=== PATIENT | female | born 1935 | race Two or more races ===

== ENCOUNTER 2016-02-29 17:10 | Inpatient (IN) | payer MEDICARE, MEDICAID ==
[~2016-02-29] VITALS: Ht 152.4 cm; Wt 31.8 kg
[~2016-02-29 17:10] MED LIST: ACET160S3 GT; ACID1TAB12 GT; ALBU2.5V38 IH; AMIN30LI4 GT; FOLI0.8T2 GT; HYDR-4076 GT; METO25TA6 PO; MUPI22OI7 NS; NITR0.4T6 SL; NUT.237L67 GT; POTA20LI4 GT; RIVA1PAT3 TD
[2016-02-29 17:48] LABS: CALCIUM, SERUM 9.4 mg/dL (8.5-10.1); CREATININE 2.3 mg/dL (0.6-1.3); POTASSIUM 4.3 mmol/L (3.5-5.1)
[2016-02-29] MEDS ORDERED: NUTR100037 GT (17:50)
[2016-02-29 17:54] LABS: ALBUMIN 2.8 g/dL (3.4-5.0); BILIRUBIN,DIRECT 0.1 mg/dL (0.0-0.2); BILIRUBIN,TOTAL 0.3 mg/dL (0.2-1.0); INDIRECT BILIRUBIN 0.2 mg/dL (0.0-1.1); TOTAL PROTEIN, SERUM 9.5 g/dL (6.4-8.2)
[2016-02-29 17:56] LABS: TROPONIN I 0.047 ng/mL (0.00-0.056)
[2016-02-29 17:59] LABS: LACTIC ACID 1.2 mmol/L (0.4-2.0)
[2016-02-29 18:01] LABS: BASOPHILS % (AUTO) 0.2 % (0.0-2.0); DIFF TOTAL % 100 %; EOSINOPHILS # (AUTO) 0.4 /CMM (0.0-0.7); EOSINOPHILS % (AUTO) 2.6 % (0.0-6.0); HEMATOCRIT 28 % (33-45); HEMOGLOBIN 8.3 g/dL (11.5-14.8); LYMPHOCYTES # (AUTO) 2.5 /CMM (0.8-4.8); LYMPHOCYTES % (AUTO) 14.5 % (20.0-44.0); MEAN CORPUSCULAR HEMOGLOBIN 27 PG (26.0-33.0); MEAN CORPUSCULAR HGB CONC 30 g/dl (31.0-36.0); MEAN CORPUSCULAR VOLUME 89 fL (82-100); MONOCYTES % (AUTO) 5.9 % (2.0-12.0); NEUTROPHILS # (AUTO) 13.1 /CMM (1.8-8.9); NEUTROPHILS % (AUTO) 76.8 % (43.0-81.0); PLATELET COUNT (AUTO) 508 /CMM (150-450); RED BLOOD CELL COUNT(AUTO) 3.13 MIL/uL (4.0-5.2)
[2016-02-29 18:13] LABS: PROTHROMBIN TIME 12.6 SECS (9.5-12.7)
[2016-02-29 18:40] LABS: PARTIAL THROMBOPLASTIN TIME > 170 SEC (23-34)
[2016-02-29] MEDS ORDERED: PIPERACILLIN /TAZOBACTAM 2.25 G in IV D5W 50 ML IV ONE (19:30)
[2016-02-29 20:26] VITALS: BP 132/69
[2016-02-29] MEDS ORDERED: NITROGLYCERIN 0.4 MG/TAB BOTTLE SL PRN (20:30)
[2016-02-29] MEDS ORDERED: HYDROCODONE/APAP 5/325MG 1 EACH TABLET PO PRN (20:30)
[2016-02-29] MEDS ORDERED: ACETAMINOPHEN 650 MG/20.3 ML UDC GT PRN (20:30)
[2016-02-29] MEDS ORDERED: MAG HYDROX/AL HYDROX/SIMETH 30 ML UDC PO PRN (20:30)
[2016-02-29] MEDS ORDERED: ALBUTEROL FS 2.5 MG/3 ML VIAL.NEB IH PRN (20:30)
[2016-02-29] MEDS ORDERED: MAGNESIUM HYDROXIDE 30 ML UDC PO PRN (20:30)
[2016-02-29] MEDS ORDERED: ACETAMINOPHEN 325 MG TABLET PO PRN (20:30)
[2016-02-29] MEDS ORDERED: ONDANSETRON HCL/PF 4 MG/2 ML VIAL IVP PRN (20:30)
[2016-02-29] MEDS ORDERED: ZOLPIDEM TARTRATE 5 MG TABLET GT PRN (20:30)
[2016-02-29] MEDS: PIPERACILLIN /TAZOBACTAM 2.25 G in IV D5W 50 ML IV SCH (21:00)
[2016-02-29] MEDS ORDERED: IV SET PRIMARY 1 EA INFUS.SET MC ONE ×2 (21:29→21:36)
[2016-02-29] MEDS ORDERED: RENAL NOVASOURCE 1,000 ML BOTTLE GT PRN (21:30)
[2016-02-29] MEDS ORDERED: SECONDARY IV SET 1 EA INFUS.SET MC ONE (21:30)
[2016-02-29] MEDS ORDERED: IV NS 0.9% 250 ML IV ONE (21:32)
[2016-02-29] MEDS: hydrALAZINE HCL 25 MG TABLET GT SCH (21:36)
[2016-02-29] MEDS ORDERED: PIPERACILLIN /TAZOBACTAM 2.25 G VIAL IV ONE (21:36)
[2016-02-29] MEDS ORDERED: IV NS 0.9% 50 ML IV ONE (21:37)
[2016-02-29] MEDS: METOPROLOL TARTRATE 25 MG TABLET PO SCH (21:37)
[2016-02-29] MEDS ORDERED: RENAL NOVASOURCE 1,000 ML BOTTLE ONE (21:40)
[2016-02-29] MEDS ORDERED: IV SET PRIMARY PUMP SET 1 EA INFUS.SET MC ONE (21:53)
[2016-03-01] VITALS (11 sets, daily range): BP systolic 92–134; BP diastolic 36–81
[2016-03-01] MEDS ORDERED: PIPERACILLIN /TAZOBACTAM 3.375 G in IV D5W 50 ML IV SCH ×2
[2016-03-01] MEDS: PIPERACILLIN /TAZOBACTAM 2.25 G in IV D5W 50 ML IV SCH ×3 (05:23→21:08)
[2016-03-01] MEDS: hydrALAZINE HCL 25 MG TABLET GT SCH ×3 (05:25→20:48)
[2016-03-01 07:05] LABS: BASOPHILS % (AUTO) 0.1 % (0.0-2.0); DIFF TOTAL % 100 %; EOSINOPHILS # (AUTO) 0.5 /CMM (0.0-0.7); EOSINOPHILS % (AUTO) 3.6 % (0.0-6.0); HEMATOCRIT 24 % (33-45); HEMOGLOBIN 7.4 g/dL (11.5-14.8); LYMPHOCYTES # (AUTO) 1.3 /CMM (0.8-4.8); LYMPHOCYTES % (AUTO) 10.3 % (20.0-44.0); MEAN CORPUSCULAR HEMOGLOBIN 27 PG (26.0-33.0); MEAN CORPUSCULAR HGB CONC 30 g/dl (31.0-36.0); MEAN CORPUSCULAR VOLUME 90 fL (82-100); MONOCYTES # (AUTO) 0.6 /CMM (0.1-1.30); MONOCYTES % (AUTO) 4.4 % (2.0-12.0); NEUTROPHILS # (AUTO) 10.6 /CMM (1.8-8.9); NEUTROPHILS % (AUTO) 81.6 % (43.0-81.0); PLATELET COUNT (AUTO) 489 /CMM (150-450); RED BLOOD CELL COUNT(AUTO) 2.69 MIL/uL (4.0-5.2)
[2016-03-01 07:46] LABS: CALCIUM, SERUM 8.9 mg/dL (8.5-10.1); CREATININE 3.3 mg/dL (0.6-1.3); PHOSPHORUS 3.3 mg/dL (2.5-4.9); POTASSIUM 4.7 mmol/L (3.5-5.1)
[2016-03-01] MEDS: PROSOURCE / PROSTAT (PYXIS) 30 ML UDC GT SCH ×2 (09:00→13:24)
[2016-03-01] MEDS: POTASSIUM CHLORIDE 20 MEQ POWDER PACKET GT SCH (09:00)
[2016-03-01] MEDS ORDERED: ACETAMINOPHEN 650 MG/20.3 ML UDC GT SCH (09:00)
[2016-03-01] MEDS: ACIDOPHILUS/BULGARICUS 1 EACH TAB.CHEW GT SCH ×2 (09:00→18:04)
[2016-03-01] MEDS: VIT B CMPLX 3/FA/VIT C/BIOTIN 1 TAB TABLET GT SCH (09:01)
[2016-03-01] MEDS: METOPROLOL TARTRATE 25 MG TABLET PO SCH ×2 (09:01→20:50)
[2016-03-01] MEDS: Z GUARD REMEDY 2 OZ OINT TP PRN (09:03)
[2016-03-01] MEDS: RIVASTIGMINE TARTRATE 4.6 MG PATCH.TD24 TD SCH (11:16)
[2016-03-01] MEDS ORDERED: ALBUMIN 25% 25 GM in PREMIX 1 EA IV ONE (18:30)
[2016-03-01] MEDS ORDERED: BLOOD IV SET 1 EA INFUS.SET MC ONE (20:03)
[2016-03-01] MEDS ORDERED: SECONDARY IV SET 1 EA INFUS.SET MC ONE (20:03)
[2016-03-01] MEDS ORDERED: IV NS 0.9% 250 ML IV ONE (20:04)
[2016-03-02] VITALS (15 sets, daily range): BP systolic 92–145; BP diastolic 36–68
[2016-03-02] MEDS: RENAL NOVASOURCE 1,000 ML BOTTLE GT PRN (03:47)
[2016-03-02] MEDS: hydrALAZINE HCL 25 MG TABLET GT SCH ×3 (04:42→21:20)
[2016-03-02] MEDS: PIPERACILLIN /TAZOBACTAM 2.25 G in IV D5W 50 ML IV SCH ×3 (04:42→21:30)
[2016-03-02] MEDS: ACIDOPHILUS/BULGARICUS 1 EACH TAB.CHEW GT SCH ×2 (09:21→17:02)
[2016-03-02] MEDS: VIT B CMPLX 3/FA/VIT C/BIOTIN 1 TAB TABLET GT SCH (09:21)
[2016-03-02] MEDS: RIVASTIGMINE TARTRATE 4.6 MG PATCH.TD24 TD SCH (09:21)
[2016-03-02] MEDS: POTASSIUM CHLORIDE 20 MEQ POWDER PACKET GT SCH (09:21)
[2016-03-02] MEDS: METOPROLOL TARTRATE 25 MG TABLET PO SCH ×2 (09:22→21:21)
[2016-03-02 13:47] LABS: HEMOGLOBIN 11.4 g/dL (11.5-14.8)
[2016-03-02] MEDS: Z GUARD REMEDY 2 OZ OINT TP PRN (17:02)
[2016-03-03] VITALS: BP 119/48
[2016-03-03 04:00] VITALS: BP 131/52
[2016-03-03] MEDS: RENAL NOVASOURCE 1,000 ML BOTTLE GT PRN (04:37)
[2016-03-03] MEDS: hydrALAZINE HCL 25 MG TABLET GT SCH ×3 (04:38→20:46)
[2016-03-03] MEDS: PIPERACILLIN /TAZOBACTAM 2.25 G in IV D5W 50 ML IV SCH ×3 (04:48→20:44)
[2016-03-03 06:21] LABS: BASOPHILS % (AUTO) 0.2 % (0.0-2.0); DIFF TOTAL % 100 %; EOSINOPHILS # (AUTO) 1.6 /CMM (0.0-0.7); EOSINOPHILS % (AUTO) 14.4 % (0.0-6.0); HEMATOCRIT 38 % (33-45); HEMOGLOBIN 11.9 g/dL (11.5-14.8); LYMPHOCYTES % (AUTO) 8.7 % (20.0-44.0); MEAN CORPUSCULAR HEMOGLOBIN 27 PG (26.0-33.0); MEAN CORPUSCULAR HGB CONC 32 g/dl (31.0-36.0); MEAN CORPUSCULAR VOLUME 84 fL (82-100); MONOCYTES % (AUTO) 9.2 % (2.0-12.0); NEUTROPHILS # (AUTO) 7.6 /CMM (1.8-8.9); NEUTROPHILS % (AUTO) 67.5 % (43.0-81.0); PLATELET COUNT (AUTO) 317 /CMM (150-450); RED BLOOD CELL COUNT(AUTO) 4.47 MIL/uL (4.0-5.2); WHITE BLOOD COUNT (AUTO) 11.2 K/uL (4.3-11.0)
[2016-03-03 07:14] LABS: CALCIUM, SERUM 9.2 mg/dL (8.5-10.1); CREATININE 3.9 mg/dL (0.6-1.3); PHOSPHORUS 2.8 mg/dL (2.5-4.9); POTASSIUM 3.8 mmol/L (3.5-5.1)
[2016-03-03 08:00] VITALS: BP 124/58
[2016-03-03] MEDS: ACIDOPHILUS/BULGARICUS 1 EACH TAB.CHEW GT SCH ×2 (08:32→16:20)
[2016-03-03] MEDS: RIVASTIGMINE TARTRATE 4.6 MG PATCH.TD24 TD SCH (08:32)
[2016-03-03] MEDS: POTASSIUM CHLORIDE 20 MEQ POWDER PACKET GT SCH (08:32)
[2016-03-03] MEDS: VIT B CMPLX 3/FA/VIT C/BIOTIN 1 TAB TABLET GT SCH (08:32)
[2016-03-03] MEDS: METOPROLOL TARTRATE 25 MG TABLET PO SCH ×2 (08:38→20:45)
[2016-03-03] MEDS ORDERED: IV NS 0.9% 250 ML IV ONE (08:59)
[2016-03-03] MEDS ORDERED: SECONDARY IV SET 1 EA INFUS.SET MC ONE (08:59)
[2016-03-03] MEDS ORDERED: IV SET PRIMARY PUMP SET 1 EA INFUS.SET MC ONE (08:59)
[2016-03-03 12:00] VITALS: BP 117/61
[2016-03-03] MEDS: Z GUARD REMEDY 2 OZ OINT TP PRN (14:21)
[2016-03-03 16:00] VITALS: BP 129/62
[2016-03-03 20:00] VITALS: BP 114/57
[2016-03-04 04:00] VITALS: BP 127/65
[2016-03-04] MEDS: PIPERACILLIN /TAZOBACTAM 2.25 G in IV D5W 50 ML IV SCH (04:31)
[2016-03-04] MEDS: RENAL NOVASOURCE 1,000 ML BOTTLE GT PRN (04:31)
[2016-03-04] MEDS: hydrALAZINE HCL 25 MG TABLET GT SCH (04:33)
[2016-03-04 08:00] VITALS: BP 110/53
[2016-03-04] MEDS: ACIDOPHILUS/BULGARICUS 1 EACH TAB.CHEW GT SCH (09:36)
[2016-03-04] MEDS: VIT B CMPLX 3/FA/VIT C/BIOTIN 1 TAB TABLET GT SCH (09:36)
[2016-03-04] MEDS: POTASSIUM CHLORIDE 20 MEQ POWDER PACKET GT SCH (09:36)
[2016-03-04 09:37] VITALS: BP 120/57
[2016-03-04] MEDS: METOPROLOL TARTRATE 25 MG TABLET PO SCH (09:37)
[2016-03-04] MEDS: RIVASTIGMINE TARTRATE 4.6 MG PATCH.TD24 TD SCH (10:32)
[2016-03-04 10:47] LABS: KETONES,URINE NEGATIVE (NEGATIVE)
[2016-03-04 10:48] LABS: ADD UA MICROSCOPIC YES; LEUKOCYTE ESTERASE ,URINE 2+ (NEGATIVE); UA OPERATOR RI
[2016-03-04 10:49] LABS: ADD URINE CULTURE YES; CALCIUM CARBONATE CRYSTALS,UR None Seen /HPF (None Seen); CALCIUM PHOSPHATE CRYSTALS,UR None Seen /HPF (None Seen); COARSE GRANULAR CASTS,URINE None Seen /LPF (None Seen); CYSTINE CRYSTALS,URINE None Seen /HPF (None Seen); FATTY CASTS,URINE None Seen /LPF (None Seen); FINE GRANULAR CASTS,URINE None Seen /LPF (None Seen); HYALINE CASTS, URINE None Seen /LPF (None Seen); RED BLOOD CELL CASTS,URINE None Seen /LPF (None Seen); TYROSINE CRYSTAL,URINE None seen /HPF (None Seen); URIC ACID CRYSTALS,URINE None Seen /HPF (None Seen); WAXY CASTS,URINE None Seen /LPF (None Seen); WBC,URINE TOO NUMEROUS TO COUN /HPF (0-3)
[2016-03-04 10:50] LABS: MUCUS,URINE Moderate /LPF (None Seen); OTHER CASTS, URINE None Seen /LPF (None Seen); SPERM,URINE None Seen /HPF (None Seen)
== END 2016-03-04 13:15 | DRG 689 ==
LOC: ER 17:11 → TELE1 19:18
PROVIDERS: ADMIT Family Medicine; ATTEND Family Medicine
PROC: 30233N1 Transfusion of Nonautologous Red Blood Cells into Peripheral Vein, Percutaneous Approach (ICD-10-PCS; principal; 2016-03-01)
PROC: 5A1D60Z (ICD-10-PCS; 2016-03-01)
DX: N39.0 Urinary tract infection, site not specified (principal); N18.6 End stage renal disease; E43 Unspecified severe protein-calorie malnutrition; G93.40 Encephalopathy, unspecified; D68.59 Other primary thrombophilia; J98.11 Atelectasis; Z68.1 Body mass index [BMI] 19.9 or less, adult; R64 Cachexia; I12.0 Hypertensive chronic kidney disease with stage 5 chronic kidney disease or end stage renal disease; N12 Tubulo-interstitial nephritis, not specified as acute or chronic; N13.2 Hydronephrosis with renal and ureteral calculous obstruction; Z99.2 Dependence on renal dialysis; K21.9 Gastro-esophageal reflux disease without esophagitis; G30.9 Alzheimer's disease, unspecified; F02.80 Dementia in other diseases classified elsewhere, unspecified severity, without behavioral disturbance, psychotic disturbance, mood disturbance, and anxiety; E78.5 Hyperlipidemia, unspecified; Z87.442 Personal history of urinary calculi; R13.10 Dysphagia, unspecified; Z93.1 Gastrostomy status; I25.10 Atherosclerotic heart disease of native coronary artery without angina pectoris; I48.91 Unspecified atrial fibrillation; L30.9 Dermatitis, unspecified; L98.9 Disorder of the skin and subcutaneous tissue, unspecified; D64.9 Anemia, unspecified
CPT/HCPCS: 36415; 71010-TC; 76770-TC; 80048-TC; 80061-TC; 80076-TC; 81000-TC; 83605-TC; 83735-TC; 84100-TC; 84484-TC; 85025-TC; 85027-TC; 85730-TC; 86850-TC; 86921-TC; 87040-TC; 87081-TC; 87086-TC; 90935-TC; A4216; A4606; A6253; A6402; J2543; J7050; J7060; P9016-BL; P9047; Z7610

== ENCOUNTER 2016-07-17 12:01 | Inpatient (IN) | payer MEDICARE, MEDICAID ==
[~2016-07-17] VITALS: Ht 152.4 cm; Wt 38.1 kg
[~2016-07-17 12:01] MED LIST changes: -ACET160S3 GT; +ACET650S26 GT; -MUPI22OI7 NS; -NUT.237L67 GT; +NUTR100037 GT
--- NOTE | 2016-07-17 12:02 | NUR ---
BIB EMT FROM DIALYSIS CENTER DUE TO A MALFUNCTIONING DIALYSIS CATHETER. PATIENT IS AWAKE, HOWEVER PATIENT IS CONFUSED. PATIENT HD CATH NO RCW WAS REPORTED TO BE NON FUNCTIONING. VIKAS NNOTED WITH AV FISTULA WITH POSTIVE BRUIT AND THRILL. GT IS ALSO NOTED. VSS. AFEBRILE
[2016-07-17 12:56] LABS: BASOPHILS # (AUTO) 0.1 /CMM (0.0-0.2); BASOPHILS % (AUTO) 1.1 % (0.0-2.0); EOSINOPHILS # (AUTO) 0.4 /CMM (0.0-0.7); EOSINOPHILS % (AUTO) 3.4 % (0.0-6.0); HEMATOCRIT 40 % (33-45); HEMOGLOBIN 12.2 g/dL (11.5-14.8); LYMPHOCYTES # (AUTO) 2.3 /CMM (0.8-4.8); LYMPHOCYTES % (AUTO) 18.1 % (20.0-44.0); MEAN CORPUSCULAR HEMOGLOBIN 27 PG (26.0-33.0); MEAN CORPUSCULAR HGB CONC 31 g/dl (31.0-36.0); MEAN CORPUSCULAR VOLUME 88 fL (82-100); MONOCYTES # (AUTO) 1.2 /CMM (0.1-1.30); MONOCYTES % (AUTO) 9.4 % (2.0-12.0); NEUTROPHILS # (AUTO) 8.5 /CMM (1.8-8.9); PLATELET COUNT (AUTO) 262 /CMM (150-450); RDW COEFFICIENT OF VARIATION 19.8 (11.5-15.0); RED BLOOD CELL COUNT(AUTO) 4.56 MIL/uL (4.0-5.2); WHITE BLOOD COUNT (AUTO) 12.5 K/uL (4.3-11.0)
[2016-07-17 13:09] LABS: CALCIUM, SERUM 9.4 mg/dL (8.5-10.1); CREATININE 3.2 mg/dL (0.6-1.3); POTASSIUM 4.7 mmol/L (3.5-5.1)
[2016-07-17 13:12] LABS: INR 1.07 (0.87-1.13); PROTHROMBIN TIME 11.1 SECS (9.5-12.7)
--- NOTE | 2016-07-17 13:15 | NUR ---
PAGED DR QUINONES
[2016-07-17 13:20] VITALS: BP 143/58
--- NOTE | 2016-07-17 13:45 | NUR ---
REPAGED DR QUINONES
--- NOTE | 2016-07-17 13:47 | NUR ---
MD GAMING ON PHONE WITH MD QUINONES
[2016-07-17] MEDS ORDERED: MAGN400O6 GT (14:15)
[2016-07-17] MEDS ORDERED: CLON0.1T GT (14:15)
[2016-07-17] MEDS ORDERED: MEMA5TAB GT (14:15)
[2016-07-17] MEDS ORDERED: VALS80TA26 GT (14:15)
[2016-07-17] MEDS ORDERED: L.AC460C GT (14:15)
[2016-07-17] MEDS ORDERED: MAGN355O5 GT (14:15)
[2016-07-17] MEDS ORDERED: AMIN887L GT (14:15)
[2016-07-17] MEDS ORDERED: FERR-58 GT (14:15)
[2016-07-17] MEDS ORDERED: OLAN5TAB3 GT (14:15)
[2016-07-17] MEDS ORDERED: HYDR-3326 GT (14:15)
[2016-07-17] MEDS ORDERED: FOLI1TAB16 GT (14:15)
[2016-07-17] MEDS ORDERED: ALTEPLASE CATHFLO 2 MG/VIAL XX ONE (14:30)
--- NOTE | 2016-07-17 14:46 | NUR ---
HD NURSE NAMITA TO ADMINISTED ACTIVASE PER MD CARLOS
--- NOTE | 2016-07-17 14:50 | NUR ---
HD NURSE AT BEDSIDE
--- NOTE | 2016-07-17 14:52 | NUR ---
HD CATH ACTIVASE GIVEN BY NAMITA RN- HD NURSE
--- NOTE | 2016-07-17 15:18 | NUR ---
PT TRANSPORTED TO [address] [place] [address]
--- NOTE | 2016-07-17 15:20 | NUR ---
RN OPENING NOTES RECEIVED PATIENT IN STRETCHER, AWAKE, HEAD OF BED ELEVATED, NO SOB OR DISTRESS NOTED. ALERT AND ORIENTED X1, PATIENT IS CONFUSED. IV INTACT AND PATENT. KEPT PATIENT CLEAN AND COMFORTABLE IN BED, CALL LIGHT WITHIN PATIENT REACH, WILL CONTINUE TO MONITOR ACCORDINGLY
[2016-07-17 16:00] VITALS: BP 143/58
[2016-07-17] MEDS ORDERED: SECONDARY IV SET 1 EA INFUS.SET MC ONE (16:03)
--- NOTE | 2016-07-17 19:25 | NUR ---
MS RN NOTE RECEIVED PT IN BED. AWAKE, A/O X1 , CONFUSED. VERBALLY RESPONSIVE ( TAGALOG ). NO S/S OF DISTRESS, NO SOB AT THIS TIME. IV SITE ON RFA INTACT AND PATENT. NO S/S OF INFILTRATION NOTED. DENIES ANY PAIN OR DISCOMFORT AT THIS TIME. ALL NEEDS ATTENDED. SAFETY PRECAUTIONS OBSERVED. CALL LIGHT WITHIN REACH. WILL CONTINUE TO MONITOR.
--- NOTE | 2016-07-17 19:35 | NUR ---
RN CLOSING NOTES ALL NEEDS PROVIDED, ATTENDED AND ANTICIPATED. KEPT PATIENT CLEAN AND COMFORTABLE IN BED, CALL LIGHT WITHIN PATIENT REACH, WILL CONTINUE TO MONITOR ACCORDINGLY. ENDORSED TO NEXT SHIFT RN TO CONTINUE CARE
[2016-07-17 20:00] VITALS: BP 137/81
--- NOTE | 2016-07-17 20:15 | NUR ---
PLACED A CALL TO [facility] AND SPOKE WITH MARTHA, CHARGE NURSE RN FOR 3-11 SHIFT , VERIFIED PT'S ALLERGY TO CODEINE, PER JUANI THOMAS , PT HAS BEEN ON NORCO FOR A LONG TIME, THEY'VE BEEN GIVING IT BUT NO ALLERGIC REACTIONS SO FAR , DAISY FROM PHARMACY INFORMED.
[2016-07-17] MEDS ORDERED: ACETAMINOPHEN 650 MG/20.3 ML UDC GT PRN (20:30)
[2016-07-17] MEDS ORDERED: DEXTROSE 50%-WATER 50 ML DISP.SYRIN IV PRN (20:30)
[2016-07-17] MEDS ORDERED: HYDROCODONE/APAP 5/325MG 1 EACH TABLET GT PRN (20:30)
[2016-07-17] MEDS ORDERED: NITROGLYCERIN 0.4 MG/TAB BOTTLE SL PRN (20:30)
[2016-07-17] MEDS ORDERED: MAGNESIUM HYDROXIDE 30 ML UDC GT PRN (20:30)
[2016-07-17] MEDS ORDERED: ALBUTEROL FS 2.5 MG/3 ML VIAL.NEB IH PRN (20:30)
[2016-07-17] MEDS ORDERED: CLONIDINE HCL 0.1 MG TABLET GT PRN (20:30)
--- NOTE | 2016-07-17 21:07 | NUR ---
RECEIVED A CALL FROM DR. SALGUERO, PER HE IS THE ADMITTING DR FOR THE PT , ADMISSION ORDERS VERIFIED WITH DR. SALGUERO.
[2016-07-17 22:00] VITALS: BP 137/81
[2016-07-17] MEDS: MAG HYDROX/AL HYDROX/SIMETH 30 ML UDC GT SCH (22:01)
[2016-07-17] MEDS: hydrALAZINE HCL 25 MG TABLET GT SCH (22:01)
[2016-07-17] MEDS: METOPROLOL TARTRATE 25 MG TABLET GT SCH (22:02)
[2016-07-17] MEDS: RENAL NOVASOURCE 1,000 ML BOTTLE GT PRN (23:14)
[2016-07-17] MEDS: BLOOD SUGAR DIAGNOSTIC 1 EACH STRIP IN SCH (23:21)
[2016-07-18] MEDS: hydrALAZINE HCL 25 MG TABLET GT SCH ×3 (04:30→21:09)
[2016-07-18] MEDS: MAG HYDROX/AL HYDROX/SIMETH 30 ML UDC GT SCH ×3 (05:04→21:08)
[2016-07-18] MEDS: BLOOD SUGAR DIAGNOSTIC 1 EACH STRIP IN SCH ×3 (05:40→17:34)
--- NOTE | 2016-07-18 06:27 | NUR ---
MS RN NOTE PT IN BED. ASLEEP AT THIS TIME. AROUSES EASILY. A/O X1 , CONFUSED. VERBALLY RESPONSIVE ( TAGALOG ). NO S/S OF DISTRESS, NO SOB AT THIS TIME. IV SITE ON RFA INTACT AND PATENT. NO S/S OF INFILTRATION NOTED. DENIES ANY PAIN OR DISCOMFORT AT THIS TIME.ON GTF OF NOVASOURCE RENAL @ 40 CC /HR. NO RESIDUAL NOTED. HOB ELEVATED FOR ASPIRATION PRECAUTION. RCW HD CATH INTACT WITH DRESSING. ALL NEEDS ATTENDED. SAFETY PRECAUTIONS OBSERVED. CALL LIGHT WITHIN REACH. WILL ENDORSE TO NEXT SHIFT FOR FIDEL.
[2016-07-18 06:35] LABS: BASOPHILS % (AUTO) 0.3 % (0.0-2.0); EOSINOPHILS # (AUTO) 0.3 /CMM (0.0-0.7); HEMATOCRIT 36 % (33-45); HEMOGLOBIN 10.8 g/dL (11.5-14.8); LYMPHOCYTES % (AUTO) 18.2 % (20.0-44.0); MEAN CORPUSCULAR HEMOGLOBIN 26 PG (26.0-33.0); MEAN CORPUSCULAR HGB CONC 30 g/dl (31.0-36.0); MEAN CORPUSCULAR VOLUME 87 fL (82-100); MONOCYTES # (AUTO) 1.3 /CMM (0.1-1.30); MONOCYTES % (AUTO) 11.7 % (2.0-12.0); NEUTROPHILS # (AUTO) 7.3 /CMM (1.8-8.9); NEUTROPHILS % (AUTO) 66.8 % (43.0-81.0); PLATELET COUNT (AUTO) 323 /CMM (150-450); RED BLOOD CELL COUNT(AUTO) 4.14 MIL/uL (4.0-5.2); WHITE BLOOD COUNT (AUTO) 10.9 K/uL (4.3-11.0)
[2016-07-18 07:04] LABS: ALBUMIN 2.3 g/dL (3.4-5.0); BILIRUBIN,TOTAL 0.3 mg/dL (0.2-1.0); CREATININE 3.9 mg/dL (0.6-1.3); MAGNESIUM 3.2 mg/dL (1.8-2.4); POTASSIUM 4.7 mmol/L (3.5-5.1); TOTAL PROTEIN, SERUM 8.1 g/dL (6.4-8.2)
--- NOTE | 2016-07-18 07:45 | NUR ---
RN MS NOTES PATIENT IN BED AWAKE A/O X 1, PATIENT IS VERBALLY RESPONSIVE AND CONFUSED. NO ACUTE DISTRESS NOTED, NO SOB, NO S/S OF PAIN NOTED. RECEIVED A CALL FROM LAB REGARDING BUN LEVEL OF 86, WILL INFORM MD. ALL NEEDS MET, KEPT CLEAN AND DRY. CALL LIGHT WITHIN REACH.
[2016-07-18 08:00] VITALS: BP 116/60
[2016-07-18] MEDS: VALSARTAN 80 MG TABLET GT SCH ×2 (09:00→17:25)
[2016-07-18] MEDS: METOPROLOL TARTRATE 25 MG TABLET GT SCH ×2 (09:00→21:09)
[2016-07-18] MEDS: OLANZAPINE 5 MG TABLET GT SCH (09:42)
[2016-07-18] MEDS: FERROUS SULFATE UDC 300 MG/5 ML UDC GT SCH ×3 (09:42→17:25)
[2016-07-18] MEDS: PROSOURCE / PROSTAT (PYXIS) 30 ML UDC GT SCH ×3 (09:42→17:25)
[2016-07-18] MEDS: LACTOBACILLUS RHAMNOSUS GG 1 EACH CAP.SPRINK GT SCH ×2 (09:42→17:25)
[2016-07-18] MEDS: FOLIC ACID 1 MG TABLET GT SCH (09:43)
[2016-07-18] MEDS: VIT B CMPLX 3/FA/VIT C/BIOTIN 1 TAB TABLET GT SCH (09:43)
[2016-07-18] MEDS: MEMANTINE HCL 5 MG TABLET GT SCH (09:43)
--- NOTE | 2016-07-18 10:09 | NUR ---
RN MS NOTES HELD DIOIVY, AND LOPRESSOR DUE TO PATIENT BEING SCHEDULED FOR DIALYSIS TODAY. BP IS 116/60 HR 81. DIALYSIS NURSE MADE AWARE.
--- NOTE | 2016-07-18 10:34 | NUR ---
RN MS NOTES PATIENTS' DIALYSIS ACCESS STILL NOT WORKING. DIALYSIS NURSE ATTEMPTED TO DIALYZE PATIENT, WAS NOT ABLE. DR GALVAN AWARE WILL TRY TO SCHEDULE FOR VASCULAR SURGEON TO CHANGE THE SITE TOMORROW. ALSO MADE AWARE OF CRITICAL BUN LEVEL. NO NEW ORDERS.
--- NOTE | 2016-07-18 11:19 | NUR ---
RN MS NOTES CALLED DAUGHTER LISHA AND NEPHEW MACKENZIE FOR CONSENT, NO ONE ANSWERED LEFT A MESSAGE FOR BOTH. WILL ATTEMPT LATER
--- NOTE | 2016-07-18 13:40 | NUR ---
RN MS NOTES RECEIVED CALL BACK FROM PT'S NEPHEW MACKENZIE WONGGARA, VERBALIZED UNDERSTANDING WITH THE PLANNED PROCEDURE, CONSENT GIVEN FOR DIALYSIS CATHETER REPLACEMENT, ANESTHESIA AND BLOOD TRANSFUSION, CO-SIGNED WITH ANOTHER RN.
--- NOTE | 2016-07-18 15:30 | NUR ---
RN MS NOTES NO APPARENT DISTRESS NOTED, NO SOB, NO S/S OF PAIN NOTED. SCD STOCKINGS ORDERED AND PLACED. PATIENT SCHEDULED FOR DIALYSIS CATH REPLACEMENT TOMORROW, TELEPHONE CONSENT GIVEN BY HER NEPHEW MACKENZIE. TUBE FEEDING TO BE STOPPED AFTER MIDNIGHT. ALL NEEDS MET, KEPT CELAN AND DRY.
[2016-07-18 16:00] VITALS: BP 120/68
--- NOTE | 2016-07-18 18:47 | NUR ---
RN MS CLOSING NOTES PATIENT A/OX 1, IN NO APPARENT DISTRESS, NO SOB, NO S/S OF PAIN NOTED. PER BUSINESS SALES CONSULTANT, SHE RECOMMENDS THE TUBE FEEDING TO CHANGED TO 25ML/HR, WILL ENDORSE TO INCOMING NURSE TO F/U WITH MD. PATIENT IS SCHEDULED FOR HD CATH REPLACEMENT TOMORROW, TELEPHONE CONSENT OBTAINED. PER MD SHE WILL BE NPO AFTER MIDNIGHT AND TUBE FEEDING WILL BE STOPPED. ALL NEEDS MET, KEPT CLEAN AND DRY, CALL LIGHT WITHIN REACH.
--- NOTE | 2016-07-18 19:20 | NUR ---
MS RN NOTES RECEIVED PT IN BED, AWAKE, A/O X 1. VERBALLY RESPONSIVE. NO DISTRESS , NO SOB NOTED. GTF OF NOVASOURCE RENAL ONGOING , DIANA WELL. HOB ELEVATED FOR ASPIRATION PRECAUTION. IV SITE ON RFA G#22 INTACT AND PATENT, NO S/S OF INFILTRATION NOTED. RCW PERMACATH INTACT WITH DRESSING. PT FOR HD CATHETER REPLACEMENT TOMORROW BY DR. ALANIS. DENIES ANY PAIN OR DISCOMFORT AT THIS TIME. SAFETY PRECAUTIONS OBSERVED. ALL NEEDS ATTENDED. CALL LIGHT WITHIN REACH. WILL CONTINUE TO MONITOR.
[2016-07-18 20:12] VITALS: BP 156/78
[2016-07-18 22:00] VITALS: BP 156/78
--- NOTE | 2016-07-19 00:30 | NUR ---
MSRN PER HD REPORT NO OUTPUT TAKEN. DUE MEDS ADMINISTERED, V/S REMAINS STABLE. PLEASANTLY CONFUSED, GT FEEDINGS TOLERATED. BS WAS 95. HS CARE STARTED.
--- NOTE | 2016-07-19 01:01 | NUR ---
PT'S BS : 95 AT THIS TIME, PT WAS ON NOVASOURCE RENAL GTF DIANA WELL. WILL CONT TO MONITOR.
[2016-07-19] MEDS: BLOOD SUGAR DIAGNOSTIC 1 EACH STRIP IN SCH ×5 (01:02→23:30)
[2016-07-19] MEDS: hydrALAZINE HCL 25 MG TABLET GT SCH ×2 (05:00→12:36)
[2016-07-19] MEDS: MAG HYDROX/AL HYDROX/SIMETH 30 ML UDC GT SCH ×2 (05:00→12:37)
--- NOTE | 2016-07-19 07:25 | NUR ---
RN OPEN NOTES RECEIVED REPORT FROM WINEMAKER NURSE. PATIENT IS IN BED, AWAKE. NO SIGN AND SYMPTOMS OF DISTRESS. DENIED PAIN. IV SITE IS INTACT AND PATENT. PATIENT IS NPO SINCE MIDNIGHT. WILL CONTINUE TO ASSESS AND MONITOR PATIENT THROUGH OUT MY SHIFT.
[2016-07-19 08:00] VITALS: BP 138/63
[2016-07-19] MEDS: FOLIC ACID 1 MG TABLET GT SCH (09:00)
[2016-07-19] MEDS: METOPROLOL TARTRATE 25 MG TABLET GT SCH (09:00)
[2016-07-19] MEDS: LACTOBACILLUS RHAMNOSUS GG 1 EACH CAP.SPRINK GT SCH ×2 (09:00→16:11)
[2016-07-19] MEDS: MEMANTINE HCL 5 MG TABLET GT SCH (09:00)
[2016-07-19] MEDS: FERROUS SULFATE UDC 300 MG/5 ML UDC GT SCH ×3 (09:00→16:11)
[2016-07-19] MEDS: OLANZAPINE 5 MG TABLET GT SCH (09:00)
[2016-07-19] MEDS: VALSARTAN 80 MG TABLET GT SCH ×2 (09:00→16:11)
[2016-07-19] MEDS: VIT B CMPLX 3/FA/VIT C/BIOTIN 1 TAB TABLET GT SCH (09:00)
[2016-07-19] MEDS: PROSOURCE / PROSTAT (PYXIS) 30 ML UDC GT SCH ×3 (09:00→16:11)
--- NOTE | 2016-07-19 09:56 | NUR ---
WOUND CARE CONSULT: PT AGITATED AND REFUSING SKIN ASSESSMENT. PT FOLLOWED BY SURGICAL TEAM. RECOMMENDATIONS MADE FOR SKIN PROTECTION. DISCUSSED WITH NURSING STAFF. SOM SCORE IS 15. WILL SEE PRN. IN AGREEMENT WITH PLAN OF CARE.
[2016-07-19] MEDS ORDERED: Z GUARD REMEDY 2 OZ OINT TP PRN (10:00)
--- NOTE | 2016-07-19 12:30 | NUR ---
OR CALLED. PATIENT WILL BE PICKED UP AT [phone] FOR HD CATH PLACEMENT
[2016-07-19] MEDS: Z GUARD REMEDY 2 OZ OINT TP SCH (12:42)
[2016-07-19] MEDS ORDERED: LIDOCAINE HCL/PF 1% 30 ML SDV ONE (15:04)
[2016-07-19] MEDS ORDERED: HEPARIN SODIUM, PORCINE 1,000 UNIT/ML VIAL ONE (15:04)
[2016-07-19 16:01] VITALS: BP 146/87
--- NOTE | 2016-07-19 16:39 | NUR ---
PATIENT LEFT THE FLOOR FOR HD DIALYSIS REPLACEMENT
[2016-07-19 18:05] VITALS: BP 133/89
[2016-07-19] MEDS: RENAL NOVASOURCE 1,000 ML BOTTLE GT PRN (18:11)
--- NOTE | 2016-07-19 18:20 | NUR ---
PATIENT CAME BACK TO THE FLOOR AT 1805. VITAL SIGNS AREl STABLE: BLOOD PRESSURE 133/89, HEART RATE 86 AND TEMP 97.4. RESUME FEEDING. XRAY AT BEDSIDE TO CONFIRM PLACEMENT.
--- NOTE | 2016-07-19 18:30 | NUR ---
CHEST XRAY DONE. PENDING RESULT
--- NOTE | 2016-07-19 18:38 | NUR ---
DIALYSIS NURSE CALLED. I INFORMED HER THAT PATIENT CAME BACK FROM OR AND CHEST X-RAY FOR PLACEMENT IS PENDING
--- NOTE | 2016-07-19 18:40 | NUR ---
RN CLOSING NOTES PATIENT IS ALERT AND ORIENTED TO NAME. PATIENT IS VERY CONFUSED. NO SIGNS AND SYMPTOMS OF DISTRESS. IV SITE IS INTACT AND PATENT, HL. PATIENT FEEDING RESUMED AT 1815. PATIENT WILL HAVE DIALYSIS TONIGHT AFTER CHEST X-RAY RESULT CONFIRM PLACEMENT. WILL ENDORSE TO PRODUCTION STATISTICAL CLERK NURSE.
--- NOTE | 2016-07-19 19:40 | NUR ---
MSRN ASLEEP, APPEARS COMFORTABLE. GT FEEDINGS TOLERATED, HOB TO 45 DEGREES. AWAITING FOR HD TONITE.
[2016-07-19 20:00] VITALS: BP 137/76
--- NOTE | 2016-07-19 21:00 | NUR ---
MSRN STARTED HD. ALL DUE MEDS HELD FOR NOW.
[2016-07-19] MEDS ORDERED: SECONDARY IV SET 1 EA INFUS.SET MC ONE (21:24)
[2016-07-20] MEDS: METOPROLOL TARTRATE 25 MG TABLET GT SCH ×3 (00:28→21:24)
[2016-07-20] MEDS: hydrALAZINE HCL 25 MG TABLET GT SCH ×4 (00:29→21:46)
--- NOTE | 2016-07-20 00:30 | NUR ---
MSRN NO OUTPUT TAKEN FROM HD. ALL DUE MEDS ADMINISTED. BS WAS 95. GT FEEDINGS CONTINUED.
[2016-07-20] MEDS: MAG HYDROX/AL HYDROX/SIMETH 30 ML UDC GT SCH ×4 (00:33→21:24)
[2016-07-20] MEDS: ANCEF 1 GM/50 ML D5W IV SCH ×4 (00:34→08:01)
[2016-07-20] MEDS ORDERED: IV SET PRIMARY PUMP SET 1 EA INFUS.SET MC ONE (00:37)
--- NOTE | 2016-07-20 03:43 | NUR ---
TELERN SLEEPING CLOSELY WATCHED.
--- NOTE | 2016-07-20 07:00 | NUR ---
TELERN BLOOD SUGAR WAS 159 COVERED WITH 2 UNITS REG INS SQ PER SLIDING SCALE. PATIENT TRYING TO PULL HD CATH, HAVE SLAG MIXER STAY WITH PATIENT FOR AWHILE.
[2016-07-20] MEDS: BLOOD SUGAR DIAGNOSTIC 1 EACH STRIP IN SCH ×3 (07:04→17:02)
[2016-07-20] MEDS: INSULIN REGULAR, HUMAN 100 UNIT/ML 3 ML VIAL SQ PRN ×2 (07:09→17:01)
--- NOTE | 2016-07-20 07:15 | NUR ---
MSRN 5 AM MEDS NOT ADMINISTERED, MEDS GIVEN LATE POST HD
--- NOTE | 2016-07-20 07:29 | NUR ---
RN OPEN NOTES RECEIVED REPORT FROM HIDE INSPECTOR NURSE. PATIENT IS IN BED, AWAKE AND ORIENTED TO NAME ONLY. NO SIGNS AND SYMPTOMS OF DISTRESS. IV SITE IS INTACT AND PATENT. GT TUBE FEEDING IS AT 40ML/HR. PER HIDE INSPECTOR, PATIENT WAS TRYING TO PULL OUT HER HD CATH. WILL CONTINUE TO MONITOR AND ASSESS PATIENT THROUGHOUT MY SHIFT.
[2016-07-20 08:00] VITALS: BP 134/66
[2016-07-20] MEDS: FERROUS SULFATE UDC 300 MG/5 ML UDC GT SCH ×3 (08:00→16:59)
[2016-07-20] MEDS: VIT B CMPLX 3/FA/VIT C/BIOTIN 1 TAB TABLET GT SCH (08:00)
[2016-07-20] MEDS: LACTOBACILLUS RHAMNOSUS GG 1 EACH CAP.SPRINK GT SCH ×2 (08:00→16:59)
[2016-07-20] MEDS: PROSOURCE / PROSTAT (PYXIS) 30 ML UDC GT SCH ×3 (08:00→16:59)
[2016-07-20] MEDS: FOLIC ACID 1 MG TABLET GT SCH (08:01)
[2016-07-20] MEDS: OLANZAPINE 5 MG TABLET GT SCH (08:01)
[2016-07-20] MEDS: MEMANTINE HCL 5 MG TABLET GT SCH (08:01)
[2016-07-20] MEDS: VALSARTAN 80 MG TABLET GT SCH ×2 (08:01→17:00)
[2016-07-20] MEDS: Z GUARD REMEDY 2 OZ OINT TP SCH (08:02)
[2016-07-20] MEDS: RENAL NOVASOURCE 1,000 ML BOTTLE GT PRN (08:41)
[2016-07-20 16:00] VITALS: BP 126/58
--- NOTE | 2016-07-20 18:47 | NUR ---
RN CLOSING NOTES PATIENT IS ALERT AND ORIENTED TO NAME. PATIENT IS VERY CONFUSED. NO SIGNS AND SYMPTOMS OF DISTRESS. IV SITE IS INTACT AND PATENT. WILL ENDORSE TO ELEMENTARY SCHOOL DIRECTOR NURSE.
--- NOTE | 2016-07-20 19:30 | NUR ---
RN NOTES: RN NOTES: RECEIVED LYING COMFORTABLY IN BED, ALERT AND ORIENTED BY HER OWN NAME,WITH PERIODS OF CONFUSION,SHE CONTINUOUSLY TALKING TO HER SELF AND MUMBLING WORDS.. CYPRIOT/TAGALOG SPEAKING,RFA G#22 PATENT AND INTACT,INCONTINENT ON DIAPER,PEG TUBE IN SITE,ON NOVASOURCE FEEDING AT 4O ML/HR,ON ACCUCHECK Q6H,RIGHT UPPER CHEST WALL-NEW PERMICATH IN PLACE. CALL LIGHT WITHIN EASY REACH, BED LOW AND LOCKED, FALL SAFETY AND ASPIRATION PRECAUTION OBSERVE.ON NPO.
[2016-07-20 20:00] VITALS: BP 131/76
--- NOTE | 2016-07-20 21:39 | NUR ---
RN NOTES: COMPLAINED OF GENERALIZED - MILD PAIN,NON PHARMACOLOGIC INTERVENTION RENDERED,TYLENOL PRN AND OTHER DUE MEDICATION GIVEN VIA PEG TUBE.PATIENT IS COOPERATIVE.KEPT ON CLOSE WATCH.
--- NOTE | 2016-07-20 22:00 | NUR ---
RN NOTES: MORNING CARE DONE,CLEAN AND CHANGE DIAPER.
[2016-07-21] MEDS: INSULIN REGULAR, HUMAN 100 UNIT/ML 3 ML VIAL SQ PRN ×2 (00:42→05:59)
[2016-07-21] MEDS: BLOOD SUGAR DIAGNOSTIC 1 EACH STRIP IN SCH ×4 (00:44→17:13)
--- NOTE | 2016-07-21 00:44 | NUR ---
RN NOTES: BLOOD SUGAR CHECKED AT 0000 RESULT-137, INSULIN GIVNE PER SCALE.CALL LIGHT WITH IN REACH.
[2016-07-21] MEDS: MAG HYDROX/AL HYDROX/SIMETH 30 ML UDC GT SCH ×3 (05:45→21:04)
[2016-07-21] MEDS: hydrALAZINE HCL 25 MG TABLET GT SCH ×3 (05:45→21:04)
--- NOTE | 2016-07-21 06:00 | NUR ---
RN NOTES: MORNBING CARE DONE, CLEAN AND CHANGE,BLOOD SUGAR CHECKED-142,INSULIN GIVEN PER SCALE.
--- NOTE | 2016-07-21 06:45 | NUR ---
RN NOTES: ASLEEP IN THE NIGHT,NO COMPLAINTS OF PAIN OR DISCOMFORT,PEG TUBE FEEDING ONGOING,KEPT ON MONITORED.ENDORSED FOR CONTINUITY OF CARE.
--- NOTE | 2016-07-21 07:18 | NUR ---
RN OPEN NOTES RECEIVED REPORT FROM SKILLED LABORER NURSE. PATIENT IS IN BED, AWAKE AND ORIENTED TO NAME ONLY. NO SIGNS AND SYMPTOMS OF DISTRESS. IV SITE IS INTACT AND PATENT. GT TUBE FEEDING IS AT 40ML/HR. PER SKILLED LABORER, PATIENT WAS TRYING TO PULL OUT HER HD CATH. WILL CONTINUE TO MONITOR AND ASSESS PATIENT THROUGHOUT MY SHIFT.
[2016-07-21 08:00] VITALS: BP 119/53
[2016-07-21] MEDS: FERROUS SULFATE UDC 300 MG/5 ML UDC GT SCH ×3 (08:19→17:12)
[2016-07-21] MEDS: VALSARTAN 80 MG TABLET GT SCH ×2 (08:19→17:00)
[2016-07-21] MEDS: METOPROLOL TARTRATE 25 MG TABLET GT SCH ×2 (08:19→22:35)
[2016-07-21] MEDS: MEMANTINE HCL 5 MG TABLET GT SCH (08:19)
[2016-07-21] MEDS: VIT B CMPLX 3/FA/VIT C/BIOTIN 1 TAB TABLET GT SCH (08:19)
[2016-07-21] MEDS: FOLIC ACID 1 MG TABLET GT SCH (08:19)
[2016-07-21] MEDS: PROSOURCE / PROSTAT (PYXIS) 30 ML UDC GT SCH ×3 (08:19→17:12)
[2016-07-21] MEDS: LACTOBACILLUS RHAMNOSUS GG 1 EACH CAP.SPRINK GT SCH ×2 (08:20→17:12)
[2016-07-21] MEDS: OLANZAPINE 5 MG TABLET GT SCH (08:23)
[2016-07-21] MEDS: Z GUARD REMEDY 2 OZ OINT TP SCH (08:24)
[2016-07-21] MEDS: RENAL NOVASOURCE 1,000 ML BOTTLE GT PRN (12:35)
--- NOTE | 2016-07-21 15:15 | NUR ---
DIALYSIS COMPLETED. 1000ML REMOVED.
[2016-07-21 16:00] VITALS: BP 126/63
--- NOTE | 2016-07-21 18:39 | NUR ---
RN CLOSING NOTES PATIENT IS ALERT AND ORIENTED TO NAME. PATIENT IS VERY CONFUSED. NO SIGNS AND SYMPTOMS OF DISTRESS. IV SITE IS INTACT AND PATENT. HEMODIALYSIS COMPLETED TODAY, 1,000 ML OUTPUT. POSSIBLE DCs IN AM. WILL ENDORSE TO SALES AND MARKETING ASSISTANT NURSE.
--- NOTE | 2016-07-21 19:35 | NUR ---
MS/RN OPENING NOTES PT ASLEEP, EASILY AROUSABLE, A/OX1. ON ROOM AIR WITH NO DISTRESS NOTED. BREATHING EVEN AND UNLABORED. IV TO RFA PATENT AND INTACT, GT FEEDING RUNNING NOVASOURCE AT 40ML/HR ORDERED. BED IN LOW/LOCKED POSITION WITH CALL LIGHT IN REACH. BED RAILS UPX3. WILL CONTINUE TO MONITOR
[2016-07-21 19:53] VITALS: BP 121/55
[2016-07-21 20:00] VITALS: BP 121/55
[2016-07-21 21:00] VITALS: BP 134/68
--- NOTE | 2016-07-21 21:00 | NUR ---
MS/RN NOTES RECHECKED ME=434/68, HR=91 ADMINISTERED APRESOLINE 25MG ORDERED. WILL MONITOR AND RECHECK BP BEFORE ADMINISTERING SCHEDULED METOPROLOL
[2016-07-21 22:30] VITALS: BP 139/65
--- NOTE | 2016-07-21 22:30 | NUR ---
MS/RN NOTES RECHECKED KN=315/65, HR=89 ADMINISTERED METOPROLOL 50MG
[2016-07-22] MEDS: BLOOD SUGAR DIAGNOSTIC 1 EACH STRIP IN SCH ×3 (00:48→12:39)
[2016-07-22] MEDS: INSULIN REGULAR, HUMAN 100 UNIT/ML 3 ML VIAL SQ PRN ×2 (00:52→06:08)
--- NOTE | 2016-07-22 00:54 | NUR ---
MS/RN NOTES BLOOD FFCHM=176 ADMINISTERED 2 UNITS OF INSULIN PER SLIDING SCALE. WILL CONTINUE TO MONITOR
[2016-07-22 05:45] VITALS: BP 119/56
[2016-07-22] MEDS: hydrALAZINE HCL 25 MG TABLET GT SCH ×2 (05:50→12:48)
[2016-07-22] MEDS: MAG HYDROX/AL HYDROX/SIMETH 30 ML UDC GT SCH ×2 (05:50→12:39)
--- NOTE | 2016-07-22 06:08 | NUR ---
MS/RN NOTES BLOOD BPKWM=[id number], NO INSULIN COVERAGE PER SLIDING SCALE.
--- NOTE | 2016-07-22 07:01 | NUR ---
MS/RN CLOSING NOTES PT AWAKE, A/OX1, CONFUSED. ON ROOM AIR WITH NO DISTRESS NOTED. BREATHING EVEN AND UNLABORED. NO SIGNS OF PAIN. IV TO RFA PATENT AND INTACT. GT FEEDING RUNNING NOVASOURCE AT 40ML/HR ORDERED. NO RESIDUAL NOTED. TURNED/REPOSITIONED PT Q2H AND EXTREMITIES OFFLOADED. MADE PT COMFORTABLE THROUGHOUT SHIFT. WILL ENDORSE TO AM SHIFT FIDEL.
--- NOTE | 2016-07-22 07:54 | NUR ---
RN OPEN NOTES RECEIVED REPORT FROM WAREHOUSE ORDER PICKER NURSE. WILL CONTINUE TO MONITOR AND ASSESS PATIENT CONDITION
[2016-07-22 08:00] VITALS: BP 124/62
[2016-07-22] MEDS: FERROUS SULFATE UDC 300 MG/5 ML UDC GT SCH ×2 (08:33→12:39)
[2016-07-22] MEDS: PROSOURCE / PROSTAT (PYXIS) 30 ML UDC GT SCH ×2 (08:33→12:39)
[2016-07-22] MEDS: OLANZAPINE 5 MG TABLET GT SCH (08:34)
[2016-07-22] MEDS: VALSARTAN 80 MG TABLET GT SCH (08:34)
[2016-07-22] MEDS: VIT B CMPLX 3/FA/VIT C/BIOTIN 1 TAB TABLET GT SCH (08:34)
[2016-07-22] MEDS: METOPROLOL TARTRATE 25 MG TABLET GT SCH (08:34)
[2016-07-22] MEDS: MEMANTINE HCL 5 MG TABLET GT SCH (08:34)
[2016-07-22] MEDS: FOLIC ACID 1 MG TABLET GT SCH (08:36)
[2016-07-22] MEDS: LACTOBACILLUS RHAMNOSUS GG 1 EACH CAP.SPRINK GT SCH (08:36)
[2016-07-22] MEDS: Z GUARD REMEDY 2 OZ OINT TP SCH (08:37)
[2016-07-22 12:48] VITALS: BP 130/66
--- NOTE | 2016-07-22 13:30 | NUR ---
SCHOOL MANAGER NOTES PATIENT'S DISCHARGE ORDER RECEIVED AND CARRIED OUT. REPORT WAS GIVEN TO SHAR LIN AT 1220PM. NO SIGNS AND SYMPTOMS OF DISTRESS. DENIED PAIN. PATIENT TRANSPORTED TO NURSING FACILITY BY AN AMBULANCE AND 2 graphic design intern. IV SITE REMOVED. ID BAND REMOVED. BLOOD PRESSURE 121/75 AT TIME OF DISCHARGE. PERSONAL BELONGING WITH PATIENT AT TIME OF DISCHARGE. PICTURES WERE TAKEN LAST NIGHT AND PLACED IN THE CHART.
== END 2016-07-22 13:25 | DRG 314 ==
LOC: ER 12:04 → MED 14:36
PROVIDERS: ADMIT Internal Medicine; ATTEND Internal Medicine
PROC: 02HV33Z Insertion of Infusion Device into Superior Vena Cava, Percutaneous Approach (ICD-10-PCS; 2016-07-19)
PROC: B518YZA Fluoroscopy of Superior Vena Cava using Other Contrast, Guidance (ICD-10-PCS; 2016-07-19)
PROC: 5A1D60Z (ICD-10-PCS; 2016-07-19)
PROC: 05PY33Z Removal of Infusion Device from Upper Vein, Percutaneous Approach (ICD-10-PCS; principal; 2016-07-19 17:20)
DX: T82.41XA Breakdown (mechanical) of vascular dialysis catheter, initial encounter (principal); G93.40 Encephalopathy, unspecified; N18.6 End stage renal disease; I12.0 Hypertensive chronic kidney disease with stage 5 chronic kidney disease or end stage renal disease; D68.59 Other primary thrombophilia; E44.0 Moderate protein-calorie malnutrition; J98.11 Atelectasis; Z68.1 Body mass index [BMI] 19.9 or less, adult; Y84.1 Kidney dialysis as the cause of abnormal reaction of the patient, or of later complication, without mention of misadventure at the time of the procedure; Y92.009 Unspecified place in unspecified non-institutional (private) residence as the place of occurrence of the external cause; D63.8 Anemia in other chronic diseases classified elsewhere; I25.10 Atherosclerotic heart disease of native coronary artery without angina pectoris; K21.9 Gastro-esophageal reflux disease without esophagitis; Z87.442 Personal history of urinary calculi; G30.9 Alzheimer's disease, unspecified; E78.5 Hyperlipidemia, unspecified; Z87.440 Personal history of urinary (tract) infections; I48.91 Unspecified atrial fibrillation; F02.80 Dementia in other diseases classified elsewhere, unspecified severity, without behavioral disturbance, psychotic disturbance, mood disturbance, and anxiety; Z93.1 Gastrostomy status; F29 Unspecified psychosis not due to a substance or known physiological condition; Y71.2 Prosthetic and other implants, materials and accessory cardiovascular devices associated with adverse incidents; L89.151 Pressure ulcer of sacral region, stage 1; R13.10 Dysphagia, unspecified; E11.22 Type 2 diabetes mellitus with diabetic chronic kidney disease; N20.0 Calculus of kidney; Z99.2 Dependence on renal dialysis
CPT/HCPCS: 36415; 71010-TC; 80048-TC; 80053-TC; 82962-TC; 83735-TC; 85025-TC; 85730-TC; 87081-TC; A4606; A6402; C1750; J0690; J1644; J1815; J2704; J2997; J3490; J7060; Z7610

== ENCOUNTER 2016-09-27 07:54 | Inpatient (IN) | payer MEDICARE, MEDICAID ==
[~2016-09-27] VITALS: Ht 152.4 cm; Wt 41.3 kg
[~2016-09-27 07:54] MED LIST changes: -ACID1TAB12 GT; +CLON0.1T GT; +FERR-58 GT; +FOLI1TAB16 GT; +HYDR-3326 GT; +L.AC460C GT; +MAGN355O5 GT; +MAGN400O6 GT; +MEMA5TAB GT; +METO25TA6 GT; -METO25TA6 PO; +OLAN5TAB3 GT; -POTA20LI4 GT; -RIVA1PAT3 TD; +VALS80TA26 GT
--- NOTE | 2016-09-27 08:05 | NUR ---
PT TO ED ROOM 04. BBPA FROM RENAL: HYPOXIC, TACHYCARDIC, TACHYPNIC S/P HEMODIALYSIS. CHANGED TO GOWN. SIDE RAILS UP. HOB ELEVATED. CONENCTED TO MONITOR. O2 VIA N/C @ 2 L/M. DR CALLES AT BEDSIDE FOR EVAL.
[2016-09-27] MEDS ORDERED: IV NS 0.9% 1,000 ML BAG IV ONE ×2 (08:30→09:00)
[2016-09-27 08:37] LABS: BASOPHILS % (AUTO) 0.4 % (0.0-2.0); EOSINOPHILS # (AUTO) 0.1 /CMM (0.0-0.7); EOSINOPHILS % (AUTO) 0.6 % (0.0-6.0); HEMATOCRIT 29 % (33-45); HEMOGLOBIN 8.8 g/dL (11.5-14.8); LYMPHOCYTES # (AUTO) 1.5 /CMM (0.8-4.8); LYMPHOCYTES % (AUTO) 11.8 % (20.0-44.0); MEAN CORPUSCULAR HEMOGLOBIN 27 PG (26.0-33.0); MEAN CORPUSCULAR HGB CONC 31 g/dl (31.0-36.0); MEAN CORPUSCULAR VOLUME 90 fL (82-100); MONOCYTES # (AUTO) 0.8 /CMM (0.1-1.30); MONOCYTES % (AUTO) 6.6 % (2.0-12.0); NEUTROPHILS # (AUTO) 10.3 /CMM (1.8-8.9); NEUTROPHILS % (AUTO) 80.6 % (43.0-81.0); PLATELET COUNT (AUTO) 404 /CMM (150-450); RDW COEFFICIENT OF VARIATION 23.1 (11.5-15.0); RED BLOOD CELL COUNT(AUTO) 3.21 MIL/uL (4.0-5.2); WHITE BLOOD COUNT (AUTO) 12.8 K/uL (4.3-11.0)
[2016-09-27 08:47] LABS: CALCIUM, SERUM 9.4 mg/dL (8.5-10.1); CARBON DIOXIDE 27 mmol/L (21-32); CHLORIDE 101 mmol/L (98-107); CREATININE 1.4 mg/dL (0.6-1.3); GLUCOSE 100 mg/dL (74-106); POTASSIUM 4.7 mmol/L (3.5-5.1); SODIUM SERUM 137 mmol/L (136-145); UREA NITROGEN, BLOOD 20 mg/dL (7-18)
[2016-09-27 08:53] LABS: ALANINE AMINOTRANSFERASE 34 U/L (12-78); ALBUMIN 2.7 g/dL (3.4-5.0); ALKALINE PHOSPHATASE 103 U/L (46-116); ASPARTATE AMINOTRANSFERASE 46 U/L (15-37); BILIRUBIN,DIRECT 0.1 mg/dL (0.0-0.2); BILIRUBIN,TOTAL 0.6 mg/dL (0.2-1.0); TOTAL PROTEIN, SERUM 9.5 g/dL (6.4-8.2)
[2016-09-27 08:55] LABS: TROPONIN I < 0.017 ng/mL (0.00-0.056)
--- NOTE | 2016-09-27 08:57 | NUR ---
CALLED EPIC ITS MARGYG
[2016-09-27] MEDS ORDERED: CEFEPIME 1 GM in IV D5W 50 ML IV ONE (09:00)
[2016-09-27] MEDS ORDERED: VANCOMYCIN 1 GM in IV D5W 250 ML IV ONE (09:00)
--- NOTE | 2016-09-27 09:18 | NUR ---
URINE COLLECTED VIA IN/OUT STREIGHT CINTRON. SAMPLE SEND TO LAB.
[2016-09-27] MEDS ORDERED: ALBU1.257 IH (09:28)
[2016-09-27 09:52] LABS: INR 1.03 (0.87-1.13)
[2016-09-27 09:54] LABS: PARTIAL THROMBOPLASTIN TIME > 170 SEC (23-34)
[2016-09-27 10:02] LABS: APPEARANCE,URINE TURBID (CLEAR); COLOR,URINE YELLOW (YELLOW)
[2016-09-27 10:04] LABS: PROTEIN,URINE 2+ mg/dl (NEGATIVE); UGLUCOSE NEGATIVE (NEGATIVE)
[2016-09-27 10:05] LABS: BILIRUBIN,URINE NEGATIVE (NEGATIVE); BLOOD, URINE 3+ Ery/uL (NEGATIVE); KETONES,URINE NEGATIVE (NEGATIVE); UROBILINOGEN,URINE 0.2 EU/dL (0.2)
[2016-09-27 10:06] LABS: LEUKOCYTE ESTERASE ,URINE 3+ (NEGATIVE); NITRITE, URINE NEGATIVE (NEGATIVE)
[2016-09-27 10:07] LABS: RBC,URINE 21-50 /HPF (0-2)
[2016-09-27 10:08] LABS: BACTERIA,URINE 2+ /HPF (None Seen); SQUAMOUS EPITHELIAL CELL,UR Few /HPF (None Seen); URINE AMORPHOUS PHOSPHATES Moderate /HPF (None Seen); WBC,URINE TOO NUMEROUS TO COUN /HPF (0-3)
[2016-09-27] MEDS ORDERED: ACETAMINOPHEN 325 MG TABLET PO PRN (11:30)
[2016-09-27] MEDS ORDERED: NITROGLYCERIN 0.4 MG/TAB BOTTLE SL PRN (11:30)
[2016-09-27] MEDS ORDERED: ONDANSETRON HCL/PF 4 MG/2 ML VIAL IVP PRN (11:30)
[2016-09-27] MEDS ORDERED: ALBUTEROL HALF STRENGTH 1.25 MG/3 ML VIAL.NEB IH PRN (11:30)
[2016-09-27] MEDS ORDERED: Z GUARD REMEDY 2 OZ OINT TP PRN (11:30)
[2016-09-27] MEDS ORDERED: MAG HYDROX/AL HYDROX/SIMETH 30 ML UDC PO PRN (11:30)
[2016-09-27] MEDS ORDERED: MAGNESIUM HYDROXIDE 30 ML UDC PO PRN (11:30)
[2016-09-27 11:40] VITALS: BP 114/73
[2016-09-27] MEDS: FERROUS SULFATE (325 MG) 325 MG/TAB TABLET GT SCH ×2 (13:00→17:00)
--- NOTE | 2016-09-27 13:32 | NUR ---
RN NOTE RECEIVED PT. PT IS AWAKE AND IN BED. PT IS A/O X 1. NO S/S OF DISTRESS, SOB, OR PAIN. IV ACCESS LOCATED ON RIGHT FA, 22G. G TUBE NOTED, SITE IS CLEAN AND NO S/S OF INFECTION. HD ACCESS NOTED ON RIGHT UPPER CHEST WALL. SAFETY MEASURES IN PLACE. WILL CONTINUE TO MONITOR.
[2016-09-27] MEDS ORDERED: VANCOMYCIN 1.25 GM in IV D5W 500 ML IV SCH (14:00)
[2016-09-27] MEDS ORDERED: IV NS 0.9% 1,000 ML IV PRN (14:00)
[2016-09-27] MEDS ORDERED: FEE PK DOSING 1 MIN EA MC ONE (14:04)
[2016-09-27] MEDS: IV NS 0.9% 1,000 ML IV PRN (14:12)
[2016-09-27 16:02] VITALS: BP 109/53
[2016-09-27] MEDS: CEFEPIME 1 GM in IV D5W 50 ML IV SCH (16:19)
--- NOTE | 2016-09-27 18:41 | NUR ---
RN CLOSING NOTE PT IS IN BED, AWAKE. NO S/S OF SOB, DISTRESS, OR PAIN. PT IS CONFUSED, TAGALOG SPEAKING ONLY. HD ACCESS ON R CHEST WALL. IV ACCESS ON RFA NS AT 100 ML/HR. ALL PT NEEDS MET. SAFETY MEASURES IN PLACE. CALL LIGHT WITHIN REACH. WILL ENDORSE TO TIER TRUCK DRIVER FOR FIDEL.
--- NOTE | 2016-09-27 19:45 | NUR ---
OFFICE CORRESPONDENT NOTE: PATIENT RESTING IN BED, NO ACUTE DISTRESS NOTED. BREATHING EVEN AND UNLABORED, NO SOB NOTED. IV RFA IN PLACE. HD SITE TO RIGHT CHEST IN PLACE, NO BLEEDING. G-TUBE IN PLACE. BED LOCKED AND IN LOWEST POSITION, CALL LIGHT IN REACH. WILL CONTINUE TO MONITOR.
[2016-09-27 20:00] VITALS: BP 128/64
[2016-09-27] MEDS: METOPROLOL TARTRATE 25 MG TABLET GT SCH (21:00)
[2016-09-28] VITALS: BP 125/74
[2016-09-28] MEDS: IV NS 0.9% 1,000 ML IV PRN (00:46)
--- NOTE | 2016-09-28 03:00 | NUR ---
CASUALTY INSURANCE CLAIM ADJUSTER NOTE: PATIENT SLEEPING, NO ACUTE DISTRESS NOTED. BREATHING EVEN AND UNLABORED, NO SOB NOTED. BED LOCKED AND IN LOWEST POSITION, CALL LIGHT IN REACH. WILL CONTINUE TO MONITOR.
[2016-09-28 04:00] VITALS: BP 135/69
--- NOTE | 2016-09-28 06:05 | NUR ---
HEEL STAINER NOTE: PATIENT RESTING IN BED, NO ACUTE DISTRESS NOTED. BREATHING EVEN AND UNLABORED, NO SOB NOTED. TELE READING SR TO [place] 90-110. IV RFA IN PLACE. HD SITE TO RIGHT CHEST IN PLACE, NO BLEEDING. G-TUBE IN PLACE, CLAMPED. BED LOCKED AND IN LOWEST POSITION, CALL LIGHT IN REACH. WILL ENDORSE TO DAY NURSE TO CONTINUE WITH PLAN OF CARE.
--- NOTE | 2016-09-28 07:30 | NUR ---
SEWER AND DRAIN TECHNICIAN NOTES PATIENT RESTING IN BED, A/OX 1-2, CONFUSED, REORIENT PATIENT TO REALITY. TELE ST 103. NO ACUTE DISTRESS NOTED. BREATHING EVEN AND UNLABORED, NO SOB NOTED. IV RFA IN PLACE. HD SITE TO RIGHT CHEST IN PLACE, NO BLEEDING. G-TUBE IN PLACE. BED LOCKED AND IN LOWEST POSITION, CALL LIGHT IN REACH. WILL CONTINUE TO MONITOR ACCORDINGLY.
[2016-09-28 07:50] LABS: BASOPHILS % (AUTO) 0.1 % (0.0-2.0); EOSINOPHILS # (AUTO) 0.2 /CMM (0.0-0.7); EOSINOPHILS % (AUTO) 1.4 % (0.0-6.0); HEMATOCRIT 24 % (33-45); HEMOGLOBIN 7.4 g/dL (11.5-14.8); LYMPHOCYTES # (AUTO) 1.4 /CMM (0.8-4.8); LYMPHOCYTES % (AUTO) 10.8 % (20.0-44.0); MEAN CORPUSCULAR HEMOGLOBIN 28 PG (26.0-33.0); MEAN CORPUSCULAR HGB CONC 31 g/dl (31.0-36.0); MEAN CORPUSCULAR VOLUME 91 fL (82-100); MONOCYTES # (AUTO) 1.1 /CMM (0.1-1.30); MONOCYTES % (AUTO) 8.7 % (2.0-12.0); NEUTROPHILS # (AUTO) 10.1 /CMM (1.8-8.9); PLATELET COUNT (AUTO) 403 /CMM (150-450); RDW COEFFICIENT OF VARIATION 22.4 (11.5-15.0); RED BLOOD CELL COUNT(AUTO) 2.68 MIL/uL (4.0-5.2); WHITE BLOOD COUNT (AUTO) 12.8 K/uL (4.3-11.0)
[2016-09-28 08:07] LABS: CALCIUM, SERUM 8.5 mg/dL (8.5-10.1); CARBON DIOXIDE 21 mmol/L (21-32); CHLORIDE 107 mmol/L (98-107); CREATININE 2.3 mg/dL (0.6-1.3); GLUCOSE 79 mg/dL (74-106); MAGNESIUM 2.2 mg/dL (1.8-2.4); PHOSPHORUS 4.2 mg/dL (2.5-4.9); POTASSIUM 4.2 mmol/L (3.5-5.1); SODIUM SERUM 141 mmol/L (136-145); UREA NITROGEN, BLOOD 34 mg/dL (7-18)
[2016-09-28] MEDS: METOPROLOL TARTRATE 25 MG TABLET GT SCH ×2 (09:00→20:52)
[2016-09-28 10:00] VITALS: BP 118/68
--- NOTE | 2016-09-28 10:30 | NUR ---
RN NOTES HEMODIALYSIS OUTPUT 1000ML. PATIENT TOLERATED WELL. WILL CONTINUE TO MONITOR ACCORDINGLY.
[2016-09-28] MEDS: MEMANTINE HCL 5 MG TABLET GT SCH (11:21)
[2016-09-28] MEDS: OLANZAPINE 5 MG TABLET GT SCH (11:21)
[2016-09-28] MEDS: FERROUS SULFATE (325 MG) 325 MG/TAB TABLET GT SCH ×3 (11:22→18:08)
[2016-09-28] MEDS: FOLIC ACID 1 MG TABLET GT SCH (11:22)
[2016-09-28] MEDS: PANTOPRAZOLE 40 MG TABLET.DR PO SCH (11:25)
--- NOTE | 2016-09-28 12:00 | NUR ---
JUANI NOTES TUBE FEEDING WAS RESUMED BY TIMOTHY BRYANT NP. RENAL NOVASOURCE RUNNING AT 40 ML/HR X16HRS.
[2016-09-28] MEDS: RENAL NOVASOURCE 1,000 ML BOTTLE GT PRN (12:56)
[2016-09-28] MEDS ORDERED: VANCOMYCIN 500 MG in IV D5W 100 ML IV PRN (14:00)
[2016-09-28] MEDS: CEFEPIME 1 GM in IV D5W 50 ML IV SCH (14:48)
[2016-09-28 16:00] VITALS: BP 130/76
--- NOTE | 2016-09-28 19:00 | NUR ---
RN CLOSING NOTES PATIENT IN BED RESTING. PATIENT CALM AND IN STABLE CONDITION. NO ACUTE DISTRESS, NO SOB NOTED. KEPT PATIENT SAFE AND COMFORTABLE. ALL NEEDS ATTENDED AND PROVIDED. ENDORSED TO ECONOMIC HISTORIAN RN FOR CONTINUITY OF CARE.
--- NOTE | 2016-09-28 19:53 | NUR ---
RN NOTES RECEIVED PATIENT IN BED, ALERT AND ORIENTED X1, NON-VERBAL, NO SOB, NO RESPIRATORY DISTRESS, NOT IN APPARENT PAIN, NO FACIAL GRIMACING, NO MOANING, KEPT HOB ELEVATED, HOB ELEVATED TO 45 DEGREES, PEG TUBE SITE IS CLEAN, FEEDING TOLERATED WELL. REPOSITIONED FOR COMFORT, CALL LIGHT WITHIN REACH.
[2016-09-28 20:00] VITALS: BP 131/65
[2016-09-28 20:11] VITALS: BP 131/65
--- NOTE | 2016-09-28 23:00 | NUR ---
RN NOTES RE-CHECKED BP 100/66 HR 75 NO DISTRESS, NO IN APPARENT PAIN, WILL CONTINUE TO MONITOR
--- NOTE | 2016-09-29 04:13 | NUR ---
RN NOTES NOVASOURCE 40 CC/HR, STOPPED AT 0400, NO RESIDUAL, TOTAL AMOUNT INFUSED 400 CC. NO ABDOMINAL DISTENTION, NO VOMITING, FEEDING TOLERATED WELL
--- NOTE | 2016-09-29 05:30 | NUR ---
NOTED PATIENT PULLED IV TO RIGHT FA, MINIMAL BLEEDING, SECURED WITH DRESSING.
--- NOTE | 2016-09-29 06:30 | NUR ---
PATIENT IN BED, ALERT AND ORIENTED X1, WITH CONFUSION, INCOHERENT, NO SOB, NO RESPIRATORY DISTRESS, NO COMPLAIN OF PAIN, NEEDS ATTENDED, CALL LIGHT WITHIN REACH
[2016-09-29 06:56] LABS: BASOPHILS % (AUTO) 0.2 % (0.0-2.0); EOSINOPHILS # (AUTO) 0.4 /CMM (0.0-0.7); EOSINOPHILS % (AUTO) 2.9 % (0.0-6.0); HEMATOCRIT 24 % (33-45); HEMOGLOBIN 7.2 g/dL (11.5-14.8); LYMPHOCYTES % (AUTO) 14.7 % (20.0-44.0); MEAN CORPUSCULAR HEMOGLOBIN 27 PG (26.0-33.0); MEAN CORPUSCULAR HGB CONC 30 g/dl (31.0-36.0); MEAN CORPUSCULAR VOLUME 91 fL (82-100); MONOCYTES # (AUTO) 1.3 /CMM (0.1-1.30); MONOCYTES % (AUTO) 9.8 % (2.0-12.0); NEUTROPHILS # (AUTO) 9.7 /CMM (1.8-8.9); NEUTROPHILS % (AUTO) 72.4 % (43.0-81.0); PLATELET COUNT (AUTO) 350 /CMM (150-450); RDW COEFFICIENT OF VARIATION 22.4 (11.5-15.0); RED BLOOD CELL COUNT(AUTO) 2.63 MIL/uL (4.0-5.2); WHITE BLOOD COUNT (AUTO) 13.4 K/uL (4.3-11.0)
[2016-09-29 06:59] LABS: CALCIUM, SERUM 8.7 mg/dL (8.5-10.1); CARBON DIOXIDE 23 mmol/L (21-32); CHLORIDE 104 mmol/L (98-107); CREATININE 2.4 mg/dL (0.6-1.3); GLUCOSE 100 mg/dL (74-106); POTASSIUM 3.7 mmol/L (3.5-5.1); SODIUM SERUM 139 mmol/L (136-145); UREA NITROGEN, BLOOD 48 mg/dL (7-18)
--- NOTE | 2016-09-29 07:30 | NUR ---
RN OPENING NOTES RECEIVED PATIENT IN BED RESTING. A/O X1, CONFUSED, REORIENTED PATIENT TO REALITY. NO ACUTE DISTRESS, NO SOB NOTED. HOB ELEVATED. PEG TUBE IN PLACE, CLEAN AND DRY. BED IN LOW POSITION, LOCKED, SIDERAILS UP, CALL LIGHT WITHIN REACH. WILL CONTINUE TO MONITOR ACCORDINGLY.
[2016-09-29 08:00] VITALS: BP 150/75
[2016-09-29 08:04] VITALS: BP 157/75
[2016-09-29] MEDS: FERROUS SULFATE (325 MG) 325 MG/TAB TABLET GT SCH ×3 (09:16→18:20)
[2016-09-29] MEDS: MEMANTINE HCL 5 MG TABLET GT SCH (09:16)
[2016-09-29] MEDS: FOLIC ACID 1 MG TABLET GT SCH (09:16)
[2016-09-29] MEDS: PANTOPRAZOLE 40 MG TABLET.DR PO SCH (09:17)
[2016-09-29] MEDS: OLANZAPINE 5 MG TABLET GT SCH ×3 (09:17→18:20)
[2016-09-29] MEDS: METOPROLOL TARTRATE 25 MG TABLET GT SCH ×2 (09:19→20:40)
--- NOTE | 2016-09-29 12:30 | NUR ---
RN NOTES MIDLINE WAS INSERTED ON RIGHT UPPER ARM, INTACT AND PATENT. PATIENT TOLERATED WELL. WILL CONTINUE TO MONITOR ACCORDINGLY.
[2016-09-29] MEDS: RENAL NOVASOURCE 1,000 ML BOTTLE GT PRN (12:32)
[2016-09-29 16:00] VITALS: BP 138/66
[2016-09-29] MEDS: CEFEPIME 1 GM in IV D5W 50 ML IV SCH (16:05)
[2016-09-29 16:06] VITALS: BP 138/66
--- NOTE | 2016-09-29 19:15 | NUR ---
RN CLOSING NOTES PATIENT IN BED RESTING CALMLY. NO ACUTE DISTRESS, NO SOB NOTED. ALL NEEDS ATTENDED AND PROVIDED. KEPT PATIENT SAFE AND COMFORTABLE. BED IN LOWEST POSITION, HOB ELEVATED, LOCKED, SIDERAILS UP X2, CALL LIGHT WITHIN REACH. ENDORSED TO OIL DEVELOPER RN FOR CONTINUITY OF CARE.
[2016-09-29 20:00] VITALS: BP 133/60
--- NOTE | 2016-09-29 20:00 | NUR ---
RN NOTES PATIENT IN BED, ALERT AND ORIENTED X1, CONFUSED, UNABLE TO VERBALIZE NEEDS, SPEAKING IN [place] DIALECT, NO SOB, NO RESPIRATORY DISTRESS, SPO2 AT ROOM AIR 97%, RIGHT UPPER ARM MIDLINE IS PROTECTED, PATIENT HAS EPISODES OF PULLING OUT IV LINE, PEG TUBE SITE IS CLEAN, PEG TUBE IS FLUSHED AND AUSCULTATED. FEEDING TOLERATED WELL, NO ABDOMINAL DISTENTION, NO VOMITING. KEPT HOB ELEVATED, REPOSITIONED FOR COMFORT, CALL LIGHT WITHIN REACH.
[2016-09-29 20:02] VITALS: BP 133/60
--- NOTE | 2016-09-30 06:42 | NUR ---
RN NOTES PATIENT IN BED, ALERT AND AWAKE, CONFUSED, INCOHERENT AT TIMES, NO SOB, TOLERATING ROOM AIR, SPO2 98%, NO COMPLAIN OF PAIN, PEG TUBE SITE IS CLEAN, FEEDING TOLERATED WELL, TURNED OFF FEEDING AT 4AM SCHEDULED, NEEDS ATTENDED, CALL LIGHT WITHIN REACH.
[2016-09-30 07:03] LABS: CALCIUM, SERUM 8.6 mg/dL (8.5-10.1); CARBON DIOXIDE 22 mmol/L (21-32); CHLORIDE 105 mmol/L (98-107); CREATININE 3.2 mg/dL (0.6-1.3); GLUCOSE 115 mg/dL (74-106); POTASSIUM 3.3 mmol/L (3.5-5.1); SODIUM SERUM 139 mmol/L (136-145); UREA NITROGEN, BLOOD 64 mg/dL (7-18); VANCOMYCIN,TROUGH 16 ug/ml (12-20)
--- NOTE | 2016-09-30 07:15 | NUR ---
RN NOTES RECEIVED PT IN BED, AWAKE AND ALERT. PT SHOWS NO SIGNS OF DISTRESS OR PAIN. CHEST WALL PORT AND RIGHT ARM MIDLINE INTACT. PEG SITE IS CLEAN AND DRY. WILL CONTINUE TO MONITOR.
--- NOTE | 2016-09-30 07:30 | NUR ---
CALLED BLOOD BANK, BLOOD NOT AVAILABLE AT THIS TIME. PER TECH. (BLOOD BANK) AWAITING FOR [facility] FOR ANTIBODY WORK UP. WILL FOLLOW UP.
[2016-09-30 08:00] VITALS: BP 135/70
[2016-09-30 08:55] LABS: BASOPHILS % (AUTO) 0.3 % (0.0-2.0); EOSINOPHILS # (AUTO) 0.6 /CMM (0.0-0.7); EOSINOPHILS % (AUTO) 5.5 % (0.0-6.0); HEMATOCRIT 22 % (33-45); LYMPHOCYTES # (AUTO) 1.5 /CMM (0.8-4.8); LYMPHOCYTES % (AUTO) 13.5 % (20.0-44.0); MEAN CORPUSCULAR HEMOGLOBIN 27 PG (26.0-33.0); MEAN CORPUSCULAR HGB CONC 30 g/dl (31.0-36.0); MEAN CORPUSCULAR VOLUME 91 fL (82-100); MONOCYTES # (AUTO) 1.1 /CMM (0.1-1.30); MONOCYTES % (AUTO) 10.2 % (2.0-12.0); NEUTROPHILS # (AUTO) 7.9 /CMM (1.8-8.9); NEUTROPHILS % (AUTO) 70.5 % (43.0-81.0); PLATELET COUNT (AUTO) 312 /CMM (150-450); RED BLOOD CELL COUNT(AUTO) 2.37 MIL/uL (4.0-5.2); WHITE BLOOD COUNT (AUTO) 11.1 K/uL (4.3-11.0)
[2016-09-30 09:06] LABS: HEMOGLOBIN 6.4 g/dL (11.5-14.8)
[2016-09-30] MEDS: METOPROLOL TARTRATE 25 MG TABLET GT SCH ×2 (09:10→21:22)
[2016-09-30] MEDS: PANTOPRAZOLE 40 MG VIAL IV SCH ×2 (09:10→16:43)
[2016-09-30] MEDS: MEMANTINE HCL 5 MG TABLET GT SCH (09:10)
[2016-09-30] MEDS: FOLIC ACID 1 MG TABLET GT SCH (09:10)
[2016-09-30] MEDS: FERROUS SULFATE (325 MG) 325 MG/TAB TABLET GT SCH ×3 (09:11→16:43)
[2016-09-30] MEDS: OLANZAPINE 5 MG TABLET GT SCH ×3 (09:11→16:43)
[2016-09-30 09:23] LABS: EOSINOPHILS % (MANUAL) 2 % (0-4); LYMPHOCYTES % (MANUAL) 12 % (16-48); MONOCYTES % (MANUAL) 7 % (0-11.0); NEUTROPHILS % (MANUAL) 79 (42-76)
--- NOTE | 2016-09-30 09:24 | NUR ---
HGB LEVEL DECREASING 6.4, PRBC NOT AVAILABLE AT THIS TIME. PER [place], TRANSFUSE ONLY 1 UNIT PRBC WHEN BLOOD IS AVAILABLE.
--- NOTE | 2016-09-30 11:24 | NUR ---
PT SEEN BY VICKY FOR SWALLOW EVAL. NEPRO SUPPLEMENTATION RECOMMENDED FOR LUNCH TIME FOR ORAL GRATIFICATION.
[2016-09-30] MEDS: RENAL NOVASOURCE 1,000 ML BOTTLE GT PRN (12:36)
--- NOTE | 2016-09-30 13:00 | NUR ---
LOW POTASSIUM LEVEL 3.[address] RODRIGUEZ, PATIENT TO HAVE DIALYSIS TREATMENT TODAY.
--- NOTE | 2016-09-30 13:05 | NUR ---
THE BLOOD BANK WAS CALLED AND THEY ARE STILL WAITING TO HEAR BACK FROM THE [place] FOR IT TO BE READY. WILL CONTINUE TO FOLLOW UP.
--- NOTE | 2016-09-30 14:35 | NUR ---
DIALYSIS TREATMENT DONE WITH 1L FLUID OUTPUT PER DIALYSIS NURSE. PATIENT TOLERATED DIALYSIS TREATMENT WELL.
[2016-09-30] MEDS: CEFEPIME 1 GM in IV D5W 50 ML IV SCH (14:45)
--- NOTE | 2016-09-30 15:56 | NUR ---
WOUND CARE CONSULT PATIENT SEEN AND SKIN ASSESSED. PATIENT SKIN IS INTACT. ONLY NOTABLE SKIN ISSUE IS REDNESS ON THE BUTTOCKS THAT IS POA. RECOMMEND CLEANSE WITH SOAP AND WATER, PAT DRY, APPLY Z GUARD DAILY AND PRN SOILING; ALSO TURNING AND REPOSITIONING AT LEAST EVERY TWO HOURS. PATIENT IS ON ISOFLEX LOW AIR LOSS MATTRESS. ORDERS PLACED AND DISCUSSED WITH NURSING AT THE BEDSIDE. WILL CONTINUE TO FOLLOW PATIENT NEEDED. Addendum: 09/30/16 at 1601 by IWONA BAKER RN Amended: Links added.
[2016-09-30 16:00] VITALS: BP 124/60
[2016-09-30] MEDS: LACTOBACILLUS RHAMNOSUS GG 1 EACH CAP.SPRINK GT SCH (16:43)
[2016-09-30] MEDS: RENAL NOVASOURCE (8OZ) 1 EA BOX PO SCH (18:15)
--- NOTE | 2016-09-30 19:04 | NUR ---
PT IS IN SEMIFOWLERS POSITION IN BED, AWAKE. NONI MIDLINE IS INTACT AND PATENT. G-TUBE IS PATENT, RUNNING NOVASOURCE AT 40ML/HR. ALL MEDS WERE GIVEN ORDERED. PT SHOWS NO SIGNS OF PAIN OR SOB. ALL SAFETY MEASURES ARE IN PLACE. WILL ENDORSE TO MEDICAL TRANSCRIPTION RN FOR CONTINUITY OF CARE.
--- NOTE | 2016-09-30 19:15 | NUR ---
MS RN OPENING NOTES: RECEIVED PT IN BED AND IS AWAKE AND IS TAGALOG SPEAKING/UNDERSTANDING ONLY. PT IS IN SEMIFOWLERS POSITION WITH BED KEPT IN LOCKED, LOWEST POSITION, AND SIDE RAILS X 2 UP. NO RESIDUAL NOTED AT G TUBE AND IS RUNNING WITH NOVASOURCE AT 40ML/HR. NO SIGNS OR SYMPTOMS OF DISTRESS NOTED AT THIS TIME. PT HAS NONI MIDLINE AND IS PATENT AND INTACT. PT ALSO HAS HD CATH SITE AT R CHEST WALL. AWAITING FOR BLOOD BANK TO CALL FOR BLOOD TO BE INFUSED. WILL CONTINUE TO MONITOR PT.
[2016-09-30 20:00] VITALS: BP 151/65
[2016-09-30 20:17] VITALS: BP 151/65
[2016-10-01] VITALS (9 sets, daily range): BP systolic 101–177; BP diastolic 44–81
--- NOTE | 2016-10-01 00:10 | NUR ---
MS RN NOTES: BLOOD TRANSFUSION STARTED. WILL CONTINUE TO MONITOR FOR ANY ADVERSE REACTIONS.
--- NOTE | 2016-10-01 02:55 | NUR ---
MS RN NOTES: 1 UNIT OF BLOOD TRANSFUSION COMPLETED. NO ADVERSE REACTIONS NOTED. WILL CONTINUE TO MONITOR PT.
[2016-10-01 06:51] LABS: BASOPHILS % (AUTO) 0.3 % (0.0-2.0); EOSINOPHILS # (AUTO) 0.5 /CMM (0.0-0.7); EOSINOPHILS % (AUTO) 5.2 % (0.0-6.0); HEMATOCRIT 29 % (33-45); HEMOGLOBIN 9.3 g/dL (11.5-14.8); LYMPHOCYTES # (AUTO) 1.4 /CMM (0.8-4.8); LYMPHOCYTES % (AUTO) 15.2 % (20.0-44.0); MEAN CORPUSCULAR HEMOGLOBIN 28 PG (26.0-33.0); MEAN CORPUSCULAR HGB CONC 32 g/dl (31.0-36.0); MEAN CORPUSCULAR VOLUME 88 fL (82-100); NEUTROPHILS # (AUTO) 6.5 /CMM (1.8-8.9); NEUTROPHILS % (AUTO) 68.3 % (43.0-81.0); PLATELET COUNT (AUTO) 256 /CMM (150-450); RDW COEFFICIENT OF VARIATION 19.9 (11.5-15.0); RED BLOOD CELL COUNT(AUTO) 3.29 MIL/uL (4.0-5.2); WHITE BLOOD COUNT (AUTO) 9.5 K/uL (4.3-11.0)
[2016-10-01 07:22] LABS: CALCIUM, SERUM 8.5 mg/dL (8.5-10.1); CARBON DIOXIDE 24 mmol/L (21-32); CHLORIDE 106 mmol/L (98-107); CREATININE 2.8 mg/dL (0.6-1.3); GLUCOSE 101 mg/dL (74-106); POTASSIUM 3.7 mmol/L (3.5-5.1); SODIUM SERUM 142 mmol/L (136-145); UREA NITROGEN, BLOOD 49 mg/dL (7-18)
--- NOTE | 2016-10-01 07:31 | NUR ---
MS RN CLOSING NOTES: ALL NEEDS WERE ATTENDED AND ANTICIPATED FOR. PT IS IN BED AND IS AWAKE AND IS TAGALOG SPEAKING/UNDERSTANDING ONLY. PT IS IN SEMIFOWLERS POSITION WITH BED KEPT IN LOCKED, LOWEST POSITION, AND SIDE RAILS X 2 UP. NO RESIDUAL NOTED. FLUSHED. NO SIGNS OR SYMPTOMS OF DISTRESS NOTED AT THIS TIME. PT HAS NONI MIDLINE AND IS PATENT AND INTACT. PT ALSO HAS HD CATH SITE AT R CHEST WALL. ENDORSED TO AM NURSE FOR FIDEL.
--- NOTE | 2016-10-01 07:35 | NUR ---
RN MS NOTES PATIENT ALERT AND ORIENTED X1, CONFUSED, SPEAKS TAGALOG, BREATHING EVEN AND UNLABORED, NO DISTRESS NOTED, GTF OFF AT THIS TIME, NO RESIDUAL NOTED, FLUSHES WELL, PIV ON NONI PATENT AND INTACT, ALL NEEDS ATTENDED, SAFETY MEASURES IN PLACED, CALL LIGHT WITHIN REACH, WILL CONTINUE TO MONITOR.
[2016-10-01] MEDS: METOPROLOL TARTRATE 25 MG TABLET GT SCH ×2 (08:50→21:23)
[2016-10-01] MEDS: LACTOBACILLUS RHAMNOSUS GG 1 EACH CAP.SPRINK GT SCH ×2 (08:50→16:46)
[2016-10-01] MEDS: RENAL NOVASOURCE (8OZ) 1 EA BOX PO SCH (08:50)
[2016-10-01] MEDS: FOLIC ACID 1 MG TABLET GT SCH (08:50)
[2016-10-01] MEDS: PANTOPRAZOLE 40 MG VIAL IV SCH ×2 (08:50→16:46)
[2016-10-01] MEDS: MEMANTINE HCL 5 MG TABLET GT SCH (08:50)
[2016-10-01] MEDS: FERROUS SULFATE (325 MG) 325 MG/TAB TABLET GT SCH ×3 (08:50→16:46)
[2016-10-01] MEDS: OLANZAPINE 5 MG TABLET GT SCH ×3 (08:50→16:46)
[2016-10-01] MEDS ORDERED: FEE PK DOSING 1 MIN EA MC ONE (08:51)
[2016-10-01] MEDS ORDERED: AMIKACIN 300 MG in IV D5W 100 ML IV ONE (10:00)
[2016-10-01] MEDS ORDERED: DOSING PER PHARMACY-AMIKACI IV XX PRN (10:00)
[2016-10-01] MEDS: RENAL NOVASOURCE 1,000 ML BOTTLE GT PRN (12:05)
--- NOTE | 2016-10-01 13:39 | NUR ---
RN MS NOTES POWER TRANSFORMER REPAIR SUPERVISOR SEEN AND EVALUATED PATIENT, RECOMMENDED TO DC MARILOU 8OZ BID, TIMOTHY CRESTER MADE AWARE AND AGREED, ORDER RECEIVED, NOTED AND CARRIED OUT.
--- NOTE | 2016-10-01 16:53 | NUR ---
RN MS NOTES FOUND MIDLINE DISLODGED, PATIENT MUST HAVE PULLED OUT THE LINE, CHARGE NURSE AWARE, WILL REQUEST FOR REINSERTION, TIMOTHY SHADE CUTTER MADE AWARE WITH NEW ORDER FOR BILATERAL SOFT MITTENS.
--- NOTE | 2016-10-01 18:31 | NUR ---
RN MS NOTES MIDLINE REINSERTED ON NONI #18, FLUSHES WELL, PATIENT IS A/OX1, CONFUSED, NO DISTRESS NOTED, GTF ONGOING, TURN AND REPOSITIONED, MITTENS IN PLACED, CHECKED FOR CIRCULATION, ALL NEEDS ATTENDED, SAFETY MEASURES IN PLACED, CALL LIGHT WITHIN REACH, WILL ENDORSE TO MARKER MAKER FOR FIDEL.
--- NOTE | 2016-10-01 19:30 | NUR ---
MS RN NOTE: PATIENT RESTING IN BED, NO ACUTE DISTRESS NOTED. BREATHING EVEN AND UNLABORED, NO SOB NOTED. MIDLINE TO NONI IN PLACE. HD SITE TO RIGHT CHEST IN PLACE, NO BLEEDING. G-TUBE IN PLACE WITH NO RESIDUAL, INFUSING NOVASOURCE 40 ML/HR. HOB ELEVATED. MITTENS IN PLACE. BED LOCKED AND IN LOWEST POSITION, CALL LIGHT IN REACH. WILL CONTINUE TO MONITOR.
--- NOTE | 2016-10-02 00:15 | NUR ---
MS RN NOTE: PATIENT G-TUBE FEEDING STOPPED AND FLUSHED. PATIENT SCHEDULED FOR EGD IN MORNING AT 9:00AM. CONSENT SIGNED WITH TELEPHONE CONSENT FROM FAMILY DURING DAYSHIFT. CHECKLIST TO BE COMPLETED. WILL CONTINUE TO MONITOR.
[2016-10-02] MEDS ORDERED: AMIKACIN 300 MG in IV D5W 100 ML IV PRN (06:00)
--- NOTE | 2016-10-02 07:30 | NUR ---
MS RN AM NOTES PATIENT AWAKE, ALERT AND ORIENTED X1, CONFUSED, SPEAKS TAGALOG, ON RA, BREATHING EVEN AND UNLABORED, NO DISTRESS NOTED, NO SIGNS OF PAIN, GTF OFF AT THIS TIME, NO RESIDUAL NOTED, FOR EGD, CONSENT SIGNED, PIV ON NONI PATENT AND INTACT, FLUSHES WELL, SITE CLEAR, BILATERAL MITTENS IN PLACE, CHECKED FOR CIRCULATION. SAFETY MEASURES IN PLACED, CALL LIGHT WITHIN REACH, WILL CONTINUE TO MONITOR.
[2016-10-02 07:50] LABS: CALCIUM, SERUM 9.1 mg/dL (8.5-10.1); CARBON DIOXIDE 23 mmol/L (21-32); CHLORIDE 107 mmol/L (98-107); CREATININE 3.4 mg/dL (0.6-1.3); GLUCOSE 91 mg/dL (74-106); POTASSIUM 3.7 mmol/L (3.5-5.1); SODIUM SERUM 142 mmol/L (136-145); UREA NITROGEN, BLOOD 62 mg/dL (7-18)
[2016-10-02 08:00] VITALS: BP_SYST 151; BP_SYST 155; BP_DIAS 56
[2016-10-02] MEDS: FERROUS SULFATE (325 MG) 325 MG/TAB TABLET GT SCH ×3 (09:00→16:05)
[2016-10-02] MEDS: LACTOBACILLUS RHAMNOSUS GG 1 EACH CAP.SPRINK GT SCH ×2 (09:00→16:04)
[2016-10-02] MEDS: PANTOPRAZOLE 40 MG VIAL IV SCH ×2 (09:00→16:04)
[2016-10-02] MEDS: OLANZAPINE 5 MG TABLET GT SCH ×3 (09:00→16:05)
[2016-10-02] MEDS: METOPROLOL TARTRATE 25 MG TABLET GT SCH ×2 (09:00→21:25)
[2016-10-02] MEDS: FOLIC ACID 1 MG TABLET GT SCH (09:00)
[2016-10-02] MEDS: MEMANTINE HCL 5 MG TABLET GT SCH (09:00)
--- NOTE | 2016-10-02 09:30 | NUR ---
MS RN NOTE MEDS NOT ADMINISTERED, PATIENT NPO FOR EGD.
--- NOTE | 2016-10-02 14:30 | NUR ---
MS RN NOTES HD COMPLETED, 500 ML OUT.
[2016-10-02] MEDS: RENAL NOVASOURCE 1,000 ML BOTTLE GT PRN (15:51)
[2016-10-02 16:00] VITALS: BP 130/76
[2016-10-02 16:54] VITALS: BP 130/76
[2016-10-02 18:00] VITALS: BP 130/76
--- NOTE | 2016-10-02 18:37 | NUR ---
MS RN CLOSING NOTES PATIENT RESTING IN BED, AWAKE, ALERT AND ORIENTED X1, CONFUSED, SPEAKS TAGALOG, ON RA, BREATHING EVEN AND UNLABORED, NO DISTRESS NOTED, NO SIGNS OF PAIN, GTF ONGOING AT 40 ML/HR ON AT 1600 OFF AT 0800, O RESIDUAL, PIV ON NONI PATENT AND INTACT, FLUSHES WELL, SITE CLEAR, BILATERAL MITTENS IN PLACE, CHECKED FOR CIRCULATION. SAFETY MEASURES IN PLACED, CALL LIGHT WITHIN REACH, ALL NEEDS MET. NO OTHER SIGNIFICANT CHANGE IN CONDITION. WILL ENDORSE TO NEXT SHIFT FOR FIDEL.
--- NOTE | 2016-10-02 19:30 | NUR ---
MS RN OPENING NOTES: PATIENT IN BED, ASLEEP AT THIS TIME, ON ROOM AIR, BREATHING EVEN AND UNLABORED. BREATH SOUNDS DIMINISHED UPON AUSCULTATION. ON GT FEEDING OF NOVASOURCE RUNNING AT 40 ML/HR. MAINTAINED HOB ELEVATED. PATIENT HAS RCW HD CATH, WITH CLEAN AND INTACT DRESSING. NONI MIDLINE INTACT AND PATENT TO FLUSH. PROVIDED FOR COMFORT AND SAFETY. BED IN LOWEST AND LOCKED POSITION, SIDERAILS UP X3, BED ALARMS ON. WILL CONT TO MONITOR.
[2016-10-02 20:00] VITALS: BP 125/72
--- NOTE | 2016-10-02 20:10 | NUR ---
RN NOTES: CONFIRMED WITH DAISY FROM PHARMACY THAT AMIKACIN WILL NOT BE GIVEN AT THIS TIME SINCE AMIKACIN LEVEL IS 17.3, AND THAT IT WILL ONLY BE SUPPLEMENTED IF AMIKACIN LEVEL IS 10 MCG/ML OR LESS.
[2016-10-03 05:00] VITALS: BP 117/55
--- NOTE | 2016-10-03 06:31 | NUR ---
MS RN CLOSING NOTES: PATIENT IN BED, ASLEEP BUT EASILY AWAKENED TO NAME BEING CALLED. ON RA, BREATHING EVEN AND UNLABORED. ON GT FEEDING OF NOVASOURCE AT 40 ML/HR, PATIENT ABLE TO TOLERATE FEEDING WELL THROUGHOUT NIGHT, WITH RESIDUALS NOTED AT LESS THAN 5 CC. FEEDING TO BE TURNED OFF AT 0800 AM (TO RUN ONLY FOR 16 HRS). NONI MIDLINE INTACT AND PATENT TO FLUSH. RCW PERMACATH WITH CLEAN AND INTACT DRESSING. NO ACUTE CHANGE IN CONDITION NOTED THROUGH SHIFT. PROVIDED FOR COMFORT AND SAFETY. MORNING CARE RENDERED. DUE MEDS GIVEN. BED IN LOWEST AND LOCKED POSITION, SIDERAILS UP X3, BED ALARMS ON. WILL ENDORSE TO AM RN FOR FIDEL.
[2016-10-03 06:35] LABS: CALCIUM, SERUM 8.7 mg/dL (8.5-10.1); CARBON DIOXIDE 28 mmol/L (21-32); CHLORIDE 105 mmol/L (98-107); CREATININE 2.8 mg/dL (0.6-1.3); GLUCOSE 131 mg/dL (74-106); POTASSIUM 3.4 mmol/L (3.5-5.1); SODIUM SERUM 143 mmol/L (136-145); UREA NITROGEN, BLOOD 40 mg/dL (7-18)
[2016-10-03 08:00] VITALS: BP 107/53
[2016-10-03] MEDS: METOPROLOL TARTRATE 25 MG TABLET GT SCH (09:00)
[2016-10-03] MEDS: MEMANTINE HCL 5 MG TABLET GT SCH (09:27)
[2016-10-03] MEDS: FOLIC ACID 1 MG TABLET GT SCH (09:27)
[2016-10-03] MEDS: LACTOBACILLUS RHAMNOSUS GG 1 EACH CAP.SPRINK GT SCH (09:27)
[2016-10-03] MEDS: FERROUS SULFATE (325 MG) 325 MG/TAB TABLET GT SCH ×2 (09:27→13:49)
[2016-10-03] MEDS: OLANZAPINE 5 MG TABLET GT SCH ×2 (09:27→13:50)
[2016-10-03] MEDS: PANTOPRAZOLE 40 MG VIAL IV SCH (09:28)
--- NOTE | 2016-10-03 14:45 | NUR ---
RN NOTES CALLED JUANI LOPEZ AT [facility] FOR REPORT ON PATIENT FOR DISCHARGE
--- NOTE | 2016-10-03 15:00 | NUR ---
RN NOTES DISCHARGE PATIENT IN STABLE CONDITION ACCOMPANIED BY 2 HYGIENE COORDINATOR VIA JOE. DISCHARGE PAPERWORK AND EXITCARE DONE.
--- NOTE | 2016-10-03 15:00 | NUR ---
RN OPENING NOTES RECEIVED PATIENT IN BED, CONFUSED, CALM AND COOPERATIVE. NO ACUTE DISTRESS, NO SOB NOTED. IV SITE INTACT AND PATENT. HD CATH IN PLACE, NO S/S OF INFECTION, SITE CLEAN AND DRY. KEPT PATIENT SAFE AND COMFORTABLE. BED IN LOW POSITION, LOCKED, SIDERAILS UPX2, HOB ELEVATED, CALL LIGHT WITHIN REACH. WILL CONTINUE TO MONITOR ACCORDINGLY.
[2016-10-03 15:45] VITALS: BP 129/68
== END 2016-10-03 15:15 | DRG 314 ==
LOC: ER 07:57 → TELE 10:26 → MED 09-28 08:14
PROVIDERS: ADMIT Internal Medicine; ATTEND Internal Medicine
PROC: 5A1D60Z (ICD-10-PCS; 2016-09-28)
PROC: 0DB68ZX Excision of Stomach, Via Natural or Artificial Opening Endoscopic, Diagnostic (ICD-10-PCS; principal; 2016-10-02 09:10)
DX: T82.41XA Breakdown (mechanical) of vascular dialysis catheter, initial encounter (principal); A41.9 Sepsis, unspecified organism; G93.40 Encephalopathy, unspecified; J18.9 Pneumonia, unspecified organism; N18.6 End stage renal disease; I12.0 Hypertensive chronic kidney disease with stage 5 chronic kidney disease or end stage renal disease; D68.59 Other primary thrombophilia; E44.0 Moderate protein-calorie malnutrition; J90 Pleural effusion, not elsewhere classified; N39.0 Urinary tract infection, site not specified; F03.91 Unspecified dementia, unspecified severity, with behavioral disturbance; Z99.2 Dependence on renal dialysis; I48.91 Unspecified atrial fibrillation; Z88.5 Allergy status to narcotic agent; Z91.041 Radiographic dye allergy status; Y92.129 Unspecified place in nursing home as the place of occurrence of the external cause; Y71.2 Prosthetic and other implants, materials and accessory cardiovascular devices associated with adverse incidents; D63.1 Anemia in chronic kidney disease; E78.5 Hyperlipidemia, unspecified; F29 Unspecified psychosis not due to a substance or known physiological condition; I25.10 Atherosclerotic heart disease of native coronary artery without angina pectoris; R13.10 Dysphagia, unspecified; Z93.1 Gastrostomy status; L89.151 Pressure ulcer of sacral region, stage 1; B96.89 Other specified bacterial agents as the cause of diseases classified elsewhere; B96.4 Proteus (mirabilis) (morganii) as the cause of diseases classified elsewhere; K29.70 Gastritis, unspecified, without bleeding; K21.9 Gastro-esophageal reflux disease without esophagitis; L30.9 Dermatitis, unspecified; R32 Unspecified urinary incontinence; Z87.442 Personal history of urinary calculi
CPT/HCPCS: 36415; 36569; 71010-TC; 80048-TC; 80076-TC; 80150; 80202-TC; 81000-TC; 82272-TC; 83605-TC; 83735-TC; 84100-TC; 84484-TC; 85025-TC; 85730-TC; 86850-TC; 86921-TC; 87040-TC; 87045-TC; 87081-TC; 87086-TC; 87186-TC; 88305-TC; 88313-TC; 88342; 90935-TC; 92611-TC; 97001-TC; A4606; A6402; C9113; J0278; J0692; J2405; J2704; J3370; J3490; J7030; J7050; J7060; P9016-BL; Z7610

== ENCOUNTER 2016-11-04 15:56 | Inpatient (IN) | payer MEDICARE, OTHER ==
[~2016-11-04] VITALS: Ht 152.4 cm; Wt 44.5 kg
[~2016-11-04 15:56] MED LIST changes: +ALBU1.257 IH; -ALBU2.5V38 IH; -CLON0.1T GT; -HYDR-3326 GT; -MAGN355O5 GT; -MAGN400O6 GT; -VALS80TA26 GT
--- NOTE | 2016-11-04 16:05 | NUR ---
PATIENT [facility]IB [facility] C/O NAUSEA AND COFFEE GROUND EMESIS. PATIENT IS A/OX 1. BREATHING EVEN AND UNLABORED ON ROOM AIR. NO SOB. VITALS STABLE. SAFETY AND COMFORT MEASURES IN PLACE. AWAITING MD ORDERS.
[2016-11-04] MEDS ORDERED: FAMOTIDINE/PF INJ 20 MG/2 ML VIAL IV ONE ×2 (16:30→16:47)
[2016-11-04] MEDS ORDERED: ONDANSETRON HCL/PF 4 MG/2 ML VIAL IVP ONE (16:30)
[2016-11-04] MEDS ORDERED: ONDANSETRON HCL/PF 4 MG/2 ML VIAL ONE (16:47)
[2016-11-04 16:48] LABS: BASOPHILS # (AUTO) 0.4 /CMM (0.0-0.2); BASOPHILS % (AUTO) 3.1 % (0.0-2.0); EOSINOPHILS # (AUTO) 0.1 /CMM (0.0-0.7); EOSINOPHILS % (AUTO) 0.7 % (0.0-6.0); HEMATOCRIT 37 % (33-45); HEMOGLOBIN 11.2 g/dL (11.5-14.8); LYMPHOCYTES # (AUTO) 1.5 /CMM (0.8-4.8); LYMPHOCYTES % (AUTO) 11.6 % (20.0-44.0); MEAN CORPUSCULAR HEMOGLOBIN 31 PG (26.0-33.0); MEAN CORPUSCULAR HGB CONC 30 g/dl (31.0-36.0); MEAN CORPUSCULAR VOLUME 102 fL (82-100); MONOCYTES # (AUTO) 1.6 /CMM (0.1-1.30); NEUTROPHILS # (AUTO) 9.6 /CMM (1.8-8.9); NEUTROPHILS % (AUTO) 72.6 % (43.0-81.0); PLATELET COUNT (AUTO) 178 /CMM (150-450); RDW COEFFICIENT OF VARIATION 22.5 (11.5-15.0); RED BLOOD CELL COUNT(AUTO) 3.64 MIL/uL (4.0-5.2); WHITE BLOOD COUNT (AUTO) 13.2 K/uL (4.3-11.0)
--- NOTE | 2016-11-04 16:50 | NUR ---
NEW IV STARTED ON RIGHT WRIST, 20 G. BLOOD DRAWN AND SENT TO LAB.
--- NOTE | 2016-11-04 16:55 | NUR ---
PATIENT MEDICATED PER MD ORDERS. HOSPITAL UNIT COORDINATOR AT BEDSIDE.
[2016-11-04 17:00] LABS: CALCIUM, SERUM 8.9 mg/dL (8.5-10.1); CARBON DIOXIDE 21 mmol/L (21-32); CHLORIDE 101 mmol/L (98-107); CREATININE 3.4 mg/dL (0.6-1.3); GLUCOSE 99 mg/dL (74-106); POTASSIUM 3.6 mmol/L (3.5-5.1); SODIUM SERUM 136 mmol/L (136-145); UREA NITROGEN, BLOOD 69 mg/dL (7-18)
[2016-11-04 17:03] LABS: INR 1.09 (0.87-1.13); PROTHROMBIN TIME 11.3 SECS (9.5-12.7)
[2016-11-04 17:06] LABS: ALANINE AMINOTRANSFERASE 44 U/L (12-78); ALBUMIN 2.8 g/dL (3.4-5.0); ALKALINE PHOSPHATASE 89 U/L (46-116); ASPARTATE AMINOTRANSFERASE 21 U/L (15-37); BILIRUBIN,DIRECT 0.2 mg/dL (0.0-0.2); BILIRUBIN,TOTAL 0.5 mg/dL (0.2-1.0); LIPASE 891 U/L (73-393); TOTAL PROTEIN, SERUM 8.1 g/dL (6.4-8.2)
[2016-11-04 17:07] LABS: TROPONIN I < 0.017 ng/mL (0.00-0.056)
[2016-11-04] MEDS ORDERED: FOLI1TAB16 GT (19:01)
[2016-11-04] MEDS ORDERED: VIT1TABL44 GT (19:01)
--- NOTE | 2016-11-04 19:39 | NUR ---
TELE 311-2.
--- NOTE | 2016-11-04 19:50 | NUR ---
REPORT GIVEN TO SAMMY GLORIA FOR ADMISSION.
[2016-11-04 20:10] VITALS: BP 99/75
--- NOTE | 2016-11-04 20:22 | NUR ---
pt transported to tele bed without incident
--- NOTE | 2016-11-04 20:30 | NUR ---
TELE/RN PATIENT WAS RECEIVED FROM [facility]. PATIENT WAS AWAKE, ALERT, ORIENTED TO NAME ONLY, WITH CONFUSION, COMFORTABLE, NO C/O PAIN, NO SIGNS OF DISTRESS NOTED, MADE COMFORTABLE IN BED, TELE BOX PUT IN, TAUGHT THE USE OF CALL LIGHT, FALL PRECAUTION PER PROTOCOL, WILL DO ADMISSION. WILL MONITOR.
[2016-11-04] MEDS ORDERED: IV NS 0.9% 1,000 ML IV PRN (21:46)
[2016-11-04] MEDS ORDERED: Z GUARD REMEDY 2 OZ OINT TP PRN (22:00)
[2016-11-04] MEDS ORDERED: ALBUTEROL HALF STRENGTH 1.25 MG/3 ML VIAL.NEB IH PRN (22:00)
[2016-11-04] MEDS ORDERED: ONDANSETRON HCL/PF 4 MG/2 ML VIAL IVP PRN (22:00)
[2016-11-05] VITALS (7 sets, daily range): BP systolic 99–146; BP diastolic 41–88
[2016-11-05] MEDS: RENAL NOVASOURCE 1,000 ML BOTTLE GT PRN (00:39)
--- NOTE | 2016-11-05 02:15 | NUR ---
TELE/RN PATIENT IS SLEEPING AT THIS TIME, AROUSABLE, APPEAR COMFORTABLE, NO SIGNS OF DISTRESS NOTED, CALL LIGHT IN REACH, WILL CONTINUE TO MONITOR.
[2016-11-05] MEDS: hydrALAZINE HCL 25 MG TABLET GT SCH ×2 (05:00→13:00)
[2016-11-05] MEDS ORDERED: hydrALAZINE HCL 25 MG TABLET ONE (05:32)
--- NOTE | 2016-11-05 06:23 | NUR ---
TELE/RN AWAKE, COMFORTABLE, NO CHANGE IN CONDITION. MORNING CARE WAS DONE, TOTAL LINEN CARE RENDERED, REPOSITIONED TO COMFORT. GT FEEDING INFUSING, NO RESIDUAL NOTED. ALL NEEDS ATTENDED AT THIS TIME. WILL CONTINUE TO MONITOR.
[2016-11-05 06:41] LABS: BASOPHILS % (AUTO) 0.3 % (0.0-2.0); EOSINOPHILS % (AUTO) 0.3 % (0.0-6.0); HEMATOCRIT 33 % (33-45); HEMOGLOBIN 10.4 g/dL (11.5-14.8); LYMPHOCYTES # (AUTO) 1.2 /CMM (0.8-4.8); LYMPHOCYTES % (AUTO) 9.5 % (20.0-44.0); MEAN CORPUSCULAR HEMOGLOBIN 32 PG (26.0-33.0); MEAN CORPUSCULAR HGB CONC 31 g/dl (31.0-36.0); MEAN CORPUSCULAR VOLUME 101 fL (82-100); MONOCYTES # (AUTO) 1.5 /CMM (0.1-1.30); MONOCYTES % (AUTO) 12.3 % (2.0-12.0); NEUTROPHILS # (AUTO) 9.6 /CMM (1.8-8.9); NEUTROPHILS % (AUTO) 77.6 % (43.0-81.0); PLATELET COUNT (AUTO) 178 /CMM (150-450); RDW COEFFICIENT OF VARIATION 24.2 (11.5-15.0); RED BLOOD CELL COUNT(AUTO) 3.32 MIL/uL (4.0-5.2); WHITE BLOOD COUNT (AUTO) 12.3 K/uL (4.3-11.0)
[2016-11-05 07:03] LABS: ALANINE AMINOTRANSFERASE 40 U/L (12-78); ALBUMIN 2.8 g/dL (3.4-5.0); ALKALINE PHOSPHATASE 78 U/L (46-116); ASPARTATE AMINOTRANSFERASE 19 U/L (15-37); BILIRUBIN,TOTAL 0.4 mg/dL (0.2-1.0); CALCIUM, SERUM 8.7 mg/dL (8.5-10.1); CARBON DIOXIDE 18 mmol/L (21-32); CHLORIDE 104 mmol/L (98-107); CREATININE 3.9 mg/dL (0.6-1.3); GLUCOSE 122 mg/dL (74-106); LIPASE 486 U/L (73-393); MAGNESIUM 2.6 mg/dL (1.8-2.4); POTASSIUM 4.5 mmol/L (3.5-5.1); SODIUM SERUM 138 mmol/L (136-145); TOTAL PROTEIN, SERUM 8.1 g/dL (6.4-8.2)
[2016-11-05 07:13] LABS: CHOLESTEROL 84 mg/dL (<200); HDL CHOLESTEROL 46 mg/dL (40-60); LDL 33 mg/dL (0-99); THYROID STIMULATING HORMONE 1.204 uIU/mL (0.358-3.74); TRIGLYCERIDES 46 mg/dL (30-150)
[2016-11-05 07:33] LABS: UREA NITROGEN, BLOOD 89 mg/dL (7-18)
--- NOTE | 2016-11-05 07:45 | NUR ---
ELEMENTARY SCHOOL DIRECTOR OPENING NOTE REPORT RECEIVED ON THE PATIENT. PATIENT IS AWAKE, A/O X 1, CONFUSED. SPEAKS TAGALO, BUT RESPONDS TO SOME QUESTIONS IN [place]. DENIES PAIN AT THIS TIME. EXTERNAL TELE MONITOR ON. SR HR 99. BED IS IN LOWEST POSITION, LOCKED, SIDE RAILS UP X 3, BED ALARM ON. CALL LIGHT WITHIN REACH. ALL NEEDS ARE MET. WILL CONTINUE TO MONITOR.
--- NOTE | 2016-11-05 08:00 | NUR ---
INDUSTRIAL HYGIENE TECHNICIAN NOTE PATIENT IS NOTED TO HAVE ELEVATED TEMPERATURE OF 101.1 PATIENT IS ASYMPTOMATIC. COOLING MEASURES APPLIED. DECREASED ROOM TEMPERATURE, UNCOVERED PATIENT, ICE PACKS UNDER THE AXILLAE. WILL REASSESS IN 15 MINUTES.
--- NOTE | 2016-11-05 08:10 | NUR ---
PRECIPITATOR OPERATOR NOTE Papo BRYANT CRAFT COORDINATOR NOTIFIED OF PATIENT HAVING FEVER. TYLENOL ORDERED BY Papo BRYANT. PHARMACY NOTIFIED.
--- NOTE | 2016-11-05 08:15 | NUR ---
LIGHTING TECHNICIAN NOTE PATIENT'S TEMEPRATURE IS TRENDING DOWN. CURRENTLY 100.9 F. ICE PACKS REMOVED.
[2016-11-05] MEDS: FOLIC ACID 1 MG TABLET GT SCH (08:28)
[2016-11-05] MEDS: OLANZAPINE 5 MG TABLET GT SCH (08:28)
[2016-11-05] MEDS: FERROUS SULFATE (325 MG) 325 MG/TAB TABLET PO SCH (08:28)
[2016-11-05] MEDS: MEMANTINE HCL 5 MG TABLET GT SCH (08:29)
[2016-11-05] MEDS: METOPROLOL TARTRATE 25 MG TABLET GT SCH ×2 (08:34→22:10)
[2016-11-05] MEDS: PANTOPRAZOLE 40 MG VIAL IV SCH (08:41)
--- NOTE | 2016-11-05 08:45 | NUR ---
PERFORMANCE TEST CONSULTANT NOTE TEMPERATURE REASSESSED. CURRENTLY 100.5 F.
--- NOTE | 2016-11-05 09:00 | NUR ---
TWELE RN NOTE PATIENT'S TEMPERATURE IS TRENDING DOWN. CURRENTLY 100.1
--- NOTE | 2016-11-05 09:35 | NUR ---
DIRECTOR FRANCHISE SALES NOTE PATIENT'S TEMPERATURE 98.9F. PATIENT IS STABLE. [id number]
[2016-11-05] MEDS ORDERED: ACETAMINOPHEN LIQUID 160 MG/5 ML BOTTLE PO ONE (10:30)
--- NOTE | 2016-11-05 10:30 | NUR ---
SURFACE GRINDER TENDER NOTE TYLENOL NOT ADMINISTERED D/T PATIENT BEING AFEBRILE. CURRENT TEMPERATURE 97.9F. TIMOTHY BRYANT INTERACTIVE PRODUCER NOTIFIED.
--- NOTE | 2016-11-05 14:23 | NUR ---
ms rn notes spoke with silvia marks and per silvia ramon patient ivf ns at 60ml/hour
[2016-11-05] MEDS: CEFTRIAXONE 1 G in IV D5W 50 ML IV SCH (15:46)
--- NOTE | 2016-11-05 16:00 | NUR ---
MS RN NOTE COLLECTED URINE SAMPLE BY STRAIGHT CATHETERIZATION BY TIMOTHY BRYANT'S ORDER. FOR URINALYSIS. PATIENT TOLERATED PROCEDURE WELL. CALLED LAB FOR A [place] FACTORY WORKER. SAMPLE IN THE SPECIMEN REFRIGERATOR.
--- NOTE | 2016-11-05 17:15 | NUR ---
MS RN CLOSING NOTE PATIENT IS RESTING IN BED. BED IS LOCKED, IN LOWEST POSITION, SIDE RAILS UP X 3, BED ALARM ON. ALL NEEDS ARE MET. NO S/S OF DISTRESS. VS WNL. PATIENT IS STABLE. WILL ENDORSE TO THE REHABILITATION PROGRAM COORDINATOR FOR FIDEL.
--- NOTE | 2016-11-05 19:00 | NUR ---
MS RN NOTES SPOKE WITH TIMOTHY BRYANT AND NOTIFIED PATIENT POLSE IS DNR. PER TIMOTHY BRYANT OK TO UPDATE THIS ORDER IN COMPUTER
[2016-11-05 19:10] LABS: APPEARANCE,URINE CLOUDY (CLEAR); BILIRUBIN,URINE NEGATIVE (NEGATIVE); BLOOD, URINE 3+ Ery/uL (NEGATIVE); COLOR,URINE YELLOW (YELLOW); KETONES,URINE NEGATIVE (NEGATIVE); LEUKOCYTE ESTERASE ,URINE 3+ (NEGATIVE); NITRITE, URINE NEGATIVE (NEGATIVE); PROTEIN,URINE 2+ mg/dl (NEGATIVE); UGLUCOSE TRACE mg/dL (NEGATIVE); UROBILINOGEN,URINE 0.2 EU/dL (0.2)
--- NOTE | 2016-11-05 19:30 | NUR ---
MS/RN PATIENT WAS AWAKE, ALERT, ORIENTED TO NAME ONLY WITH CONFUSION, APPEAR COMFORTABLE, NO C/E PAIN, NO SIGNS OF DISTRESS NOTED, HOB ELEVATED, GT FEEDING INFUSING, NO RESIDUAL NOTED, WILL MONITOR.
[2016-11-05 19:31] LABS: BACTERIA,URINE Few /HPF (None Seen); SQUAMOUS EPITHELIAL CELL,UR Few /HPF (None Seen); WBC,URINE 21-50 /HPF (0-3)
[2016-11-05] MEDS ORDERED: hydrALAZINE HCL 25 MG TABLET PO PRN (22:30)
[2016-11-06] MEDS: RENAL NOVASOURCE 1,000 ML BOTTLE GT PRN (01:32)
--- NOTE | 2016-11-06 06:24 | NUR ---
MS/RN PATIENT SLEEPING AT THIS TIME, APPEAR COMFORTABLE, NO SIGNS OF DISTRESS NOTED, HOB ELEVATED, GT FEEDING INFUSING NO RESIDUAL NOTED, ALL NEEDS ATTENDED AT THIS TIME. WILL CONTINUE TO MONITOR.
--- NOTE | 2016-11-06 07:57 | NUR ---
RN NOTES RECEIVED PT. PT IS STABLE AND SLEEPING IN BED. NO S/S OF DISTRESS OR SOB AT THIS TIME. NO C/O PAIN AT THIS TIME. PT IS ON RA AND O2 SAT IS ABOVE 95%. PT IS ON GT FEEDING OF NOVASOURCE AT 40 ML/HR. IV ACCESS IS LOCATED ON LEFT FOREARM, 20G SL. SAFETY MEASURES IN PLACE, CALL LIGHT WITHIN REACH. WILL CONTINUE TO MONITOR.
[2016-11-06 08:00] VITALS: BP 142/58
[2016-11-06] MEDS: FERROUS SULFATE (325 MG) 325 MG/TAB TABLET PO SCH (08:29)
[2016-11-06] MEDS: FOLIC ACID 1 MG TABLET GT SCH (08:29)
[2016-11-06] MEDS: OLANZAPINE 5 MG TABLET GT SCH (08:29)
[2016-11-06] MEDS: METOPROLOL TARTRATE 25 MG TABLET GT SCH ×2 (08:30→23:11)
[2016-11-06] MEDS: MEMANTINE HCL 5 MG TABLET GT SCH (08:30)
[2016-11-06] MEDS: PANTOPRAZOLE 40 MG VIAL IV SCH (08:30)
--- NOTE | 2016-11-06 13:57 | NUR ---
RN NOTES DIALYSIS PERFORMED ON PT TODAY, 11/06/16. NO OUTPUT UPON COMPLETION.
[2016-11-06] MEDS: CEFTRIAXONE 1 G in IV D5W 50 ML IV SCH (14:47)
[2016-11-06 16:00] VITALS: BP 95/49
--- NOTE | 2016-11-06 18:39 | NUR ---
RN CLOSING NOTE PT IS IN BED RESTING. PT IS CONFUSED. NO S/S OF DISTRESS OR SOB. PT HAD HEMODIALYSIS TODAY, NO OUTPUT. ALL PATIENT NEEDS ANTICIPATED AND MET. SAFETY MEASURES IN PLACE. CALL LIGHT WITHIN REACH. WILL ENDORSE TO TEACHING FELLOW FOR FIDEL.
--- NOTE | 2016-11-06 19:15 | NUR ---
MS RN NOTES RECEIVED PT IN BED, ASLEEP AT THIS TIME. AROUSES EASILY. PT IS CONFUSED BUT ABLE TO RESPOND WHEN CALLING HER NAME. PT WITH NO DISTRESS, NO SOB AT THIS TIME. GTF OF NOVASOURCE @40CC /HR ONGOING, NO RESIDUAL NOTED. ASPIRATION PRECAUTIONS OBSERVED. IV SITE ON LFA INTACT AND PATENT. RIGHT UPPER CHEST DIALYSIS CATHETER INPLACE, COVERED WITH DRY AND INTACT DRESSING, NO BLEEDING NOTED AT THIS TIME. NO S/S OF INFILTRATION NOTED. ALL NEEDS ATTENDED. SAFETY PRECAUTIONS OBSERVED. CALL LIGHT WITHIN REACH. WILL CONT TO MONITOR.
[2016-11-06 20:00] VITALS: BP_SYST 106; BP_DIAS 56; BP_DIAS 86
[2016-11-07] MEDS: RENAL NOVASOURCE 1,000 ML BOTTLE GT PRN (02:11)
--- NOTE | 2016-11-07 06:34 | NUR ---
MS RN NOTES PT IN BED, ASLEEP AT THIS TIME. AROUSES EASILY. PT IS CONFUSED BUT ABLE TO RESPOND TO HER NAME, VERBALLY RESPONSIVE. PT WITH NO DISTRESS, NO SOB AT THIS TIME. GTF OF NOVASOURCE @40CC /HR ONGOING, DIANA WELL, NO RESIDUAL NOTED. ASPIRATION PRECAUTIONS OBSERVED. IV SITE ON LFA INTACT AND PATENT. RIGHT UPPER CHEST DIALYSIS CATHETER IN PLACE, COVERED WITH DRY AND INTACT DRESSING, NO BLEEDING NOTED AT THIS TIME. ALL NEEDS ATTENDED. SAFETY PRECAUTIONS OBSERVED. CALL LIGHT WITHIN REACH. REPOSITIONED Q2 HOURS. WILL ENDORSE TO NEXT SHIFT FOR FIDEL.
--- NOTE | 2016-11-07 07:30 | NUR ---
RN NOTES RECEIVED PATIENT IN BED, ASLEEP, AROUSES EASILY. PATIENT IS CONFUSED BUT ABLE TO RESPOND WHEN CALLING HER NAME. NO ACUTE DISTRESS, NO SOB AT THIS TIME. GTUBE FEEDING OF NOVASOURCE @40CC/HR ONGOING, NO RESIDUAL NOTED. ASPIRATION PRECAUTIONS OBSERVED. IV SITE ON LFA INTACT AND PATENT. RIGHT UPPER CHEST DIALYSIS CATHETER IN PLACE, COVERED WITH DRY AND INTACT DRESSING, NO BLEEDING NOTED AT THIS TIME. NO S/S OF INFILTRATION NOTED. SAFETY PRECAUTIONS OBSERVED. BED IN LOW POSITION, LOCKED, SIDERAILS UP X2, CALL LIGHT WITHIN REACH. WILL CONTINUE TO MONITOR ACCORDINGLY.
[2016-11-07 08:00] VITALS: BP 104/63
[2016-11-07] MEDS: METOPROLOL TARTRATE 25 MG TABLET GT SCH (09:00)
[2016-11-07] MEDS: FERROUS SULFATE (325 MG) 325 MG/TAB TABLET PO SCH (10:01)
[2016-11-07] MEDS: MEMANTINE HCL 5 MG TABLET GT SCH (10:02)
[2016-11-07] MEDS: OLANZAPINE 5 MG TABLET GT SCH (10:02)
[2016-11-07] MEDS: FOLIC ACID 1 MG TABLET GT SCH (10:02)
[2016-11-07] MEDS: PANTOPRAZOLE 40 MG VIAL IV SCH (10:03)
--- NOTE | 2016-11-07 10:45 | NUR ---
RN NOTES RECEIVED CALL FROM MICROBIOLOGY, [facility], REGARDING BLOOD CULTURE RESULT, NO BUDDING YEAST SEEN ON GRAM STAIN. TIMOTHY BRYANT NP, MADE AWARE.
[2016-11-07 15:15] VITALS: BP 109/68
--- NOTE | 2016-11-07 15:30 | NUR ---
RN NOTES DISCHARGE PATIENT IN STABLE CONDITION, ACCOMPANIED BY 2 COMPREHENSIVE ADVISOR. CALLED JUANI TRUONG FOR REPORT AT [facility]. DISCHARGE INSTRUCTION/TEACHING/EXITCARE DONE. DISCHARGE PAPERWORK GIVEN TO COMPREHENSIVE ADVISOR.
[2016-11-07] MEDS ORDERED: HEPARIN SODIUM, PORCINE 5000 UNITS/1 ML VIAL SQ SCH (21:00)
== END 2016-11-07 15:45 | DRG 871 ==
LOC: ER 15:57 → TELE 19:41 → MED 11-05 11:27
PROVIDERS: ADMIT Nurse Practitioner Acute Care; ATTEND Nurse Practitioner Acute Care
PROC: 5A1D00Z (ICD-10-PCS; principal; 2016-11-06)
DX: A41.9 Sepsis, unspecified organism (principal); K85.90 Acute pancreatitis without necrosis or infection, unspecified; G93.41 Metabolic encephalopathy; L89.159 Pressure ulcer of sacral region, unspecified stage; J90 Pleural effusion, not elsewhere classified; E44.0 Moderate protein-calorie malnutrition; N18.6 End stage renal disease; I12.0 Hypertensive chronic kidney disease with stage 5 chronic kidney disease or end stage renal disease; D68.59 Other primary thrombophilia; F02.81 Dementia in other diseases classified elsewhere, unspecified severity, with behavioral disturbance; J98.11 Atelectasis; N39.0 Urinary tract infection, site not specified; K92.2 Gastrointestinal hemorrhage, unspecified; M48.56XA Collapsed vertebra, not elsewhere classified, lumbar region, initial encounter for fracture; N20.1 Calculus of ureter; G30.9 Alzheimer's disease, unspecified; R13.10 Dysphagia, unspecified; E78.5 Hyperlipidemia, unspecified; D63.8 Anemia in other chronic diseases classified elsewhere; E86.0 Dehydration; I25.10 Atherosclerotic heart disease of native coronary artery without angina pectoris; I48.91 Unspecified atrial fibrillation; I70.0 Atherosclerosis of aorta; K21.9 Gastro-esophageal reflux disease without esophagitis; N20.0 Calculus of kidney; Z87.01 Personal history of pneumonia (recurrent); Z87.442 Personal history of urinary calculi; Z93.1 Gastrostomy status; Z99.2 Dependence on renal dialysis; Z88.5 Allergy status to narcotic agent; Z91.041 Radiographic dye allergy status; B96.89 Other specified bacterial agents as the cause of diseases classified elsewhere
CPT/HCPCS: 36415; 71010-TC; 71250-TC; 80048-TC; 80053-TC; 80061-TC; 80076-TC; 81000-TC; 83690-TC; 83735-TC; 84100-TC; 84443-TC; 84484-TC; 85025-TC; 85730-TC; 86850-TC; 86880-TC; 87040-TC; 87081-TC; 87086-TC; 87186-TC; 90935-TC; 93307-TC; A4606; C9113; J0696; J2405; J3490; J7030; J7050; J7060; Z7610

== ENCOUNTER 2016-12-02 08:09 | Inpatient (IN) | payer MEDICARE, OTHER ==
[~2016-12-02] VITALS: Ht 149.9 cm; Wt 40.4 kg
[~2016-12-02 08:09] MED LIST changes: -ACET650S26 GT; -AMIN30LI4 GT; +VIT1TABL44 GT
--- NOTE | 2016-12-02 08:50 | NUR ---
[facility] TO ER; FROM SNF- C/O BLOODY STOOL; + HEMMOCCOLT TEST IN ED. NOTYED CONFUSED. GTUBE IN PLACE. NOTED DIAPER FILLED WITH LIQUID AND BLACK STOOL. NOTED TACHY. SEEN BY FOR EVAL. DIRECTOR EQUIPMENT AT FOR BLOOD DRAW. SAFETY AND COMFORT MEASURES PROVIDED. WILL MONITOR.
--- NOTE | 2016-12-02 08:55 | NUR ---
JEAN AT BS.
--- NOTE | 2016-12-02 09:00 | NUR ---
IV ACCESS STARTED. MEDICATED ORDERED.
[2016-12-02 09:03] LABS: ALANINE AMINOTRANSFERASE 40 U/L (12-78); ALKALINE PHOSPHATASE 96 U/L (46-116); ASPARTATE AMINOTRANSFERASE 29 U/L (15-37); BILIRUBIN,DIRECT 0.1 mg/dL (0.0-0.2); BILIRUBIN,TOTAL 0.4 mg/dL (0.2-1.0); CALCIUM, SERUM 9.2 mg/dL (8.5-10.1); CARBON DIOXIDE 31 mmol/L (21-32); CHLORIDE 102 mmol/L (98-107); CREATININE 1.8 mg/dL (0.6-1.3); GLUCOSE 97 mg/dL (74-106); POTASSIUM 3.8 mmol/L (3.5-5.1); SODIUM SERUM 138 mmol/L (136-145); TOTAL PROTEIN, SERUM 7.7 g/dL (6.4-8.2); UREA NITROGEN, BLOOD 23 mg/dL (7-18)
[2016-12-02 09:09] LABS: BASOPHILS % (AUTO) 0.3 % (0.0-2.0); EOSINOPHILS # (AUTO) 0.5 /CMM (0.0-0.7); EOSINOPHILS % (AUTO) 3.8 % (0.0-6.0); HEMATOCRIT 24 % (33-45); LYMPHOCYTES # (AUTO) 1.3 /CMM (0.8-4.8); LYMPHOCYTES % (AUTO) 11.2 % (20.0-44.0); MEAN CORPUSCULAR HEMOGLOBIN 32 PG (26.0-33.0); MEAN CORPUSCULAR HGB CONC 30 g/dl (31.0-36.0); MEAN CORPUSCULAR VOLUME 106 fL (82-100); MONOCYTES # (AUTO) 0.8 /CMM (0.1-1.30); MONOCYTES % (AUTO) 7.1 % (2.0-12.0); NEUTROPHILS # (AUTO) 9.2 /CMM (1.8-8.9); NEUTROPHILS % (AUTO) 77.6 % (43.0-81.0); PLATELET COUNT (AUTO) 201 /CMM (150-450); RDW COEFFICIENT OF VARIATION 22.4 (11.5-15.0); RED BLOOD CELL COUNT(AUTO) 2.22 MIL/uL (4.0-5.2); WHITE BLOOD COUNT (AUTO) 11.9 K/uL (4.3-11.0)
[2016-12-02 09:19] LABS: TROPONIN I < 0.017 ng/mL (0.00-0.056)
--- NOTE | 2016-12-02 09:30 | NUR ---
CALLED [facility] DR. PALOMINO
[2016-12-02] MEDS ORDERED: CEPH-570 GT (09:40)
[2016-12-02 10:06] LABS: APPEARANCE,URINE TURBID (CLEAR); COLOR,URINE YELLOW (YELLOW); PROTEIN,URINE 3+ mg/dl (NEGATIVE)
[2016-12-02 10:07] LABS: BILIRUBIN,URINE NEGATIVE (NEGATIVE); UGLUCOSE NEGATIVE (NEGATIVE)
[2016-12-02 10:08] LABS: BLOOD, URINE TRACE Ery/uL (NEGATIVE); KETONES,URINE NEGATIVE (NEGATIVE); LEUKOCYTE ESTERASE ,URINE 2+ (NEGATIVE); NITRITE, URINE NEGATIVE (NEGATIVE); UROBILINOGEN,URINE 0.2 EU/dL (0.2)
[2016-12-02 10:10] LABS: BACTERIA,URINE Few /HPF (None Seen); SQUAMOUS EPITHELIAL CELL,UR Few /HPF (None Seen); WBC,URINE 80-100 /HPF (0-3)
--- NOTE | 2016-12-02 10:29 | NUR ---
REPORT GIVEN TO CHANTELLE GLORIA FOR TELE [id number]
[2016-12-02 10:35] LABS: INR 0.99 (0.87-1.13); PROTHROMBIN TIME 10.3 SECS (9.5-12.7)
[2016-12-02 10:57] LABS: EOSINOPHILS % (MANUAL) 5 % (0-4); LYMPHOCYTES % (MANUAL) 8 % (16-48); MONOCYTES % (MANUAL) 3 % (0-11.0); NEUTROPHILS % (MANUAL) 84 (42-76)
--- NOTE | 2016-12-02 11:11 | NUR ---
RECEIVED PT FROM ER IN STABLE CONDITION, NO SOB OR DISTRESS NOTED, NO PAIN OR DISCOMFORT, PT TRANSFERRED TO BED, BED LOCKED AND LOW, HEP LOCK ON LFA WRAPPED FOR SAFETY, CALL LIGHT PROVIDED, WILL INFORM MD ABOUT ADMISSION.
[2016-12-02 11:15] VITALS: BP 113/79
[2016-12-02 12:00] VITALS: BP 113/79
--- NOTE | 2016-12-02 13:00 | NUR ---
CALLED [facility] SN[facility] AND GT FEEDING CLARIFIED, CONFORMED WITH DR PALOMINO AND NEW ORDER RECEIVED.
[2016-12-02 13:54] LABS: PARTIAL THROMBOPLASTIN TIME > 170 SEC (23-34)
--- NOTE | 2016-12-02 15:17 | NUR ---
PT STARTED ON DIALYSIS, WILL MONITOR.
[2016-12-02 16:00] VITALS: BP 111/52
--- NOTE | 2016-12-02 17:22 | NUR ---
DIALYSIS DONE, TOLERATED WELL, OUTPUT 1 LT
--- NOTE | 2016-12-02 18:36 | NUR ---
PT IN STABLE CONDITION, NO SOB OR DISTRESS NOTED, NO PAIN OR DISCOMFORT, PT TRYING TO REMOVED LINES, PT TRANSFERRED TO ROOM 326/2 WITH SITTER, WILL ENDORSE TO NEXT SHIFT.
--- NOTE | 2016-12-02 19:51 | NUR ---
MS/RN RECEIVE PATIENT AWAKE, ALERT, ORIENTED X 1 COMFORTABLE, NO C/O PAIN, NO DISTRESS NOTED, SITTER AT BEDSIDE. WILL MONITOR.
[2016-12-02 20:00] VITALS: BP 110/47
--- NOTE | 2016-12-02 22:09 | NUR ---
MS/RN HYDRALAZINE 25 TABLETS NOT ADMINISTERED, DOSE TOO MUCH, WILL CLARIFY WITH IN A.M.
--- NOTE | 2016-12-03 05:30 | NUR ---
MS/RN HYDRALAZINE PO NOT GIVEN, DOSE TOO MUCH, WILL CLARIFY WITH MD.
--- NOTE | 2016-12-03 06:46 | NUR ---
MS/RN PATIENT AWAKE, COMFORTABLE, NO C/O PAIN, NO DISTRESS NOTED, ALL NEEDS ATTENDED AT THIS TIME. WILL CONTINUE TO MONITOR.
[2016-12-03 06:58] LABS: BASOPHILS % (AUTO) 0.3 % (0.0-2.0); EOSINOPHILS # (AUTO) 1.1 /CMM (0.0-0.7); HEMATOCRIT 24 % (33-45); LYMPHOCYTES # (AUTO) 1.7 /CMM (0.8-4.8); LYMPHOCYTES % (AUTO) 19.1 % (20.0-44.0); MEAN CORPUSCULAR HEMOGLOBIN 32 PG (26.0-33.0); MEAN CORPUSCULAR HGB CONC 30 g/dl (31.0-36.0); MEAN CORPUSCULAR VOLUME 108 fL (82-100); MONOCYTES # (AUTO) 1.1 /CMM (0.1-1.30); MONOCYTES % (AUTO) 11.7 % (2.0-12.0); NEUTROPHILS # (AUTO) 5.1 /CMM (1.8-8.9); NEUTROPHILS % (AUTO) 56.9 % (43.0-81.0); PLATELET COUNT (AUTO) 167 /CMM (150-450); RDW COEFFICIENT OF VARIATION 21.5 (11.5-15.0); RED BLOOD CELL COUNT(AUTO) 2.18 MIL/uL (4.0-5.2)
--- NOTE | 2016-12-03 07:30 | NUR ---
ALERT AND ORIENTED X1,REMAINS NPO WITH 16 HR. TUBE FEEDING.
[2016-12-03 07:35] LABS: CARBON DIOXIDE 31 mmol/L (21-32); CHLORIDE 103 mmol/L (98-107); CREATININE 2.5 mg/dL (0.6-1.3); GLUCOSE 112 mg/dL (74-106); POTASSIUM 4.1 mmol/L (3.5-5.1); SODIUM SERUM 137 mmol/L (136-145); UREA NITROGEN, BLOOD 38 mg/dL (7-18)
[2016-12-03 07:36] LABS: ALANINE AMINOTRANSFERASE 39 U/L (12-78); ALBUMIN 3.1 g/dL (3.4-5.0); ALKALINE PHOSPHATASE 99 U/L (46-116); ASPARTATE AMINOTRANSFERASE 21 U/L (15-37); BILIRUBIN,TOTAL 0.2 mg/dL (0.2-1.0); MAGNESIUM 2.4 mg/dL (1.8-2.4); PHOSPHORUS 2.6 mg/dL (2.5-4.9); TOTAL PROTEIN, SERUM 7.7 g/dL (6.4-8.2)
[2016-12-03 07:38] LABS: BAND % (MANUAL) 1 % (0.0-5.0); EOSINOPHILS % (MANUAL) 10 % (0-4); LYMPHOCYTES % (MANUAL) 16 % (16-48); MONOCYTES % (MANUAL) 6 % (0-11.0); NEUTROPHILS % (MANUAL) 67 (42-76)
[2016-12-03 07:58] LABS: CHOLESTEROL 100 mg/dL (<200); HDL CHOLESTEROL 46 mg/dL (40-60); LDL 48 mg/dL (0-99); TRIGLYCERIDES 81 mg/dL (30-150)
[2016-12-03 08:00] VITALS: BP 105/59
--- NOTE | 2016-12-03 11:30 | NUR ---
DR. GALVAN,DR. SALGUERO,MICA DUONG ROTARY SAW OPERATOR IN TO SEE PT.
--- NOTE | 2016-12-03 14:30 | NUR ---
PROTONIX IV STARTED.
--- NOTE | 2016-12-03 15:30 | NUR ---
TUBE FEEDING STARTED.
[2016-12-03 16:00] VITALS: BP 110/60
--- NOTE | 2016-12-03 18:00 | NUR ---
NEFTALY REPORTS 4 DIARRHEA STOOLS.
--- NOTE | 2016-12-03 19:45 | NUR ---
RN OPENING NOTES RECEIVED REPORT FROM DAYSHIFT JUANI DOUGHERTY. FOUND Pt ASLEEP, RESTING IN BED. NO S/S OF ACUTE DISTRESS OR SOB NOTED. EQUAL CHEST RISE AND FALL. NO SIGNS OF PAIN AT THIS TIME. Pt IS A/OX1, TO NAME ONLY, CONFUSED. 1:1 SITTER AT BEDSIDE. SAFETY MEASURES IN PLACE. BED LOW, LOCKED, HOB ELEVATED, SIDE RAILS UP, CALL LIGHT WITHIN REACH. WILL CONTINUE TO MONITOR Pt THROUGHOUT THE NIGHT FOR SAFETY.
--- NOTE | 2016-12-03 22:51 | NUR ---
RN NOTES APRESOLINE 625MG HELD. BP 123/57. WILL CLARIFY DOSE WITH MD.
[2016-12-04] VITALS (10 sets, daily range): BP systolic 120–136; BP diastolic 54–71
--- NOTE | 2016-12-04 06:45 | NUR ---
RN CLOSING NOTES NO SIGNIFICANT CHANGES NOTED DURING THE SHIFT. SITTER AT BEDSIDE. ALL NEEDS MET AND ATTENDED TO. NO S/S OF ACUTE DISTRESS OR SOB NOTED DURING THE NIGHT. SAFETY MEASURES IN PLACE. WILL ENDORSE TO DAYSHIFT RN FOR Pt's FIDEL.
--- NOTE | 2016-12-04 07:20 | NUR ---
MS RN OPENING NOTES RECEIVED PT FROM NIGHTSHIFT NURSE IN STABLE CONDITION. PT IS A/O X1 AND CONFUSED. NO SOB OR SIGNS OF DISTRESS NOTED. BREATHING IS EVEN AND UNLABORED. GHULAM CATHETER NOTED ON RIGHT CHEST. GTUBE ALSO NOTED. PLACEMENT CHECKED IS AUSCULTATION. NO RESIDUAL ASPIRATED AT THIS TIME. PER NIGHTSHIFT NURSE, FEEDING IS TURNED OFF AT THIS TIME AND SHOULD RESUME @ 1500. IV PRESENT ON LEFT FA 20G SL. IV IS PATENT AND INTACT. NO REDNESS OR SIGNS OF INFILTRATION NOTED. BED IN LOW LOCKED POSITION, SIDE RAILS UP X3, CALL LIGHT WITHIN REACH, BED ALARM ON, NEFTALY CHAHAL (CANDIS) AT BEDSIDE. WILL CONTINUE TO MONITOR.
--- NOTE | 2016-12-04 09:36 | NUR ---
MS RN NOTES PT CURRENTLY RECEIVING HD. MORNING MEDICATIONS HELD
--- NOTE | 2016-12-04 09:43 | NUR ---
MS RN NOTES PHARMACY NOTIFIED THAT PROTONIX DRIP IS MISSING FROM UNIT. PHARMACIST STATES THAT THEY WILL PREPARE THE MEDICATION THEN BRING IT UP.
--- NOTE | 2016-12-04 10:28 | NUR ---
MS RN NOTES PROTONIX DRIP ADMINISTERED.
--- NOTE | 2016-12-04 11:12 | NUR ---
MS RN NOTES DR. SALGUERO MADE AWARE THAT BLOOD TRANSFUSION WAS NOT DONE YESTERDAY. LAB WAS CALLED AND STATED THAT THEIR SYSTEM WAS DOWN AND THEREFORE DID NOT SEE THE ORDER BUT WILL PREPARE THE BLOOD KM. WILL AWAIT FOR THE BLOOD TO BE READY AND ADMINISTER
--- NOTE | 2016-12-04 13:03 | NUR ---
MS RN NOTES PT'S NEPHEW MACKENZIE WAS CALLED TO GET CONSENT FOR BLOOD TRANSFUSION. MYSELF AND AGUEDA HARP RN GOT VERBAL CONFIRMATION FROM MACKENZIE AND SIGNED THE CONSENT
--- NOTE | 2016-12-04 17:11 | NUR ---
BLOOD TRANSFUSION NOTES 1 UNIT OF PRBCS WAS ADMINISTERED TO PT PER HOSPITAL PROTOCOL. VITALS REMAIN STABLED THROUGHOUT TRANSFUSION. NO BLOOD TRANSFUSION REACTIONS NOTED. REPEAT H/H ORDERED PER 'S ORDER
--- NOTE | 2016-12-04 19:13 | NUR ---
MS RN CLOSING NOTES PT REMAINS STABLE AFTER BLOOD TRANSFUSION. ALL NEEDS WERE MET DURING SHIFT AND ORDERS CARRIED OUT ACCORDINGLY. GTUBE FEEDING RESUMED ORDERED. PT IS TOLERATING FEEDING WELL. SITTER REMAINS AT BEDSIDE. ALL SAFETY MEASURES IN PLACE. WILL ENDORSE TO [facility] NURSE FOR FIDEL
[2016-12-04 19:48] LABS: HEMOGLOBIN 9.6 g/dL (11.5-14.8)
--- NOTE | 2016-12-04 20:00 | NUR ---
MS RN NOTES RECEIVED PATIENT LAYING IN BED WITH SEMI CARBAJAL POSITION. A & O X 1 WITH FORGETFULNESS. ON GT FEEDING WITH NOVASOURCE AT 40ML/HR WITH ON & OFF SCHEDULE ORDERED. RESIDUAL & PATENCY CHECKED. IV ACCESS TO LFA & RIGHT WRIST, INTACT & PATENT. NPO AT THIS TIME. ON 1:1 SITTER AT BEDSIDE FOR SAFETY. BED IN LOW LOCKED POSITION. CALL LIGHT WITHIN REACH. CONTINUING TO MONITOR.
--- NOTE | 2016-12-05 06:37 | NUR ---
MS RN NOTES PATIENT SLEPT INTERMITTENTLY AT NIGHT. A & O X1. ON 1:1 SITTER FOR SAFETY. IV ACCESS TO RIGHT WRIST & LFA, INTACT PATENT. GT FEEDING RUNNING AT 40ML/HR WITH NOVASOURCE , NO ASPIRATION NOTED. RESIDUAL & PATENCY CHECKED. HOB IN MODERATE SEMI CARBAJAL POSITION. REPOSITIONED, KEPT CLEAN & DRY. ON PROTONIX IV ORDERED. CALL LIGHT WITHIN REACH. BED IN LOW LOCKED POSITION. WILL ENDORSE TO AM SHIFT.
--- NOTE | 2016-12-05 08:03 | NUR ---
MS/RN OPENING NOTE PATIENT RECEIVED IN BED IN STABLE CONDITION. A/O X 1 WITH EPISODES OF CONFUSION. NO SIGNS OF ACUTE DISTRESS. NO COMPLAIN OF PAIN OR DISCOMFORT. ON PEG TUBE FEEDING TOLERATING WELL. SITTER AT BEDSIDE. ALL NEEDS ATTENDED TO. CALL LIGHT WITHIN REACH. WILL CONTINUE TO MONITOR TO ENSURE SAFETY.
--- NOTE | 2016-12-05 08:13 | NUR ---
MS/RN OPENING NOTE PATIENT RECEIVED IN BED IN STABLE CONDITION. A/O X1. NO SINGS OF ACUTE DISTRESS. NO COMPLAIN OF PAIN OR DISCOMFORT. ALL NEEDS ATTENDED TO. CALL LIGHT WITHIN REACH. WILL CONTINUE TO MONITOR TO ENSURE SAFETY.
--- NOTE | 2016-12-05 09:33 | NUR ---
MS/RN LOPRESSOR HELD LOPRESSOR HELD SECONDARY PATIENT'S DIALYSIS SCHEDULE IS T, , SAT.
--- NOTE | 2016-12-05 13:01 | NUR ---
RN NOTES RECEIVED PT IN BED, AWAKE AND RESTING COMFORTABLY WITH SITTER AT BEDSIDE. PT ON RA, RESPIRATIONS ARE EVEN AND UNLABORED. IV ON R WRIST INTACT AND PATENT, RUNNING LEVAQUIN. SAFETY MEASURES ARE IN PLACE, CALL LIGHT IS IN REACH. WILL CONTINUE TO MONITOR.
--- NOTE | 2016-12-05 18:51 | NUR ---
RN NOTES PT RESTING IN BED WITH SITTER AT BEDSIDE. PT ON RA, RESPIRATIONS ARE EVEN AND UNLABORED. IV ON RWRIST INTACT AND PATENT RUNNING PROTONIX IV 50ML/HR. GTUBE INTACT AND RUNNING NOVASOURCE AT 40ML/HR. ALL PATIENT NEEDS WERE MET. ALL MEDS GIVEN ORDERED. SAFETY MEASURES ARE IN PLACE, CALL LIGHT IS IN REACH. WILL ENDORSE TO SCALE SHOOTER RN FOR CONTINUITY OF CARE.
[2016-12-05 19:00] VITALS: BP 162/83
--- NOTE | 2016-12-05 20:00 | NUR ---
MS RN NOTES RECEIVED PATIENT RESTING IN BED, NO C/O PAIN, NO DISTRESS, RESP EVEN & NON LABORED. ON RA. IV ACCESS TO RIGHT WRIST & LEFT ARM, INTACT PATENT. GT RUNNING WITH NOVASOURCE AT 40 ML/HR. RESIDUAL & PATENCY CHECKED. ON 1:1 SITTER FOR SAFETY. IN SEMI CARBAJAL POSITION. IV PROTONIX DRIP RUNNING ORDERED. BED IN LOW LOCKED POSITION. CALL LIGHT WITHIN REACH. MONITORING CLOSELY.
--- NOTE | 2016-12-06 02:00 | NUR ---
MS RN NOTES PATIENT SLEEPING INTERMITTENTLY. NO FIDEL NOTED. SITTER AT BEDSIDE FOR SAFETY. GTF RUNNING ORDERED. IV PROTONIX RUNNING AT 50 ML/HR. NO S/S OF INFECTION NOTED. MONITORING CLOSELY.
[2016-12-06 05:00] VITALS: BP 136/78
--- NOTE | 2016-12-06 06:18 | NUR ---
MS RN NOTES PATIENT SLEPT INTERMITTENTLY AT NIGHT. A & O X 1 & HAD PERIODS OF CONFUSION. GTF RUNNING AT 40ML/HR, TOLERATING WELL. IN SEMI CARBAJAL POSITION. NO S/S OF ASPIRATION NOTED. NO C/O PAIN, NO DISTRESS OR DISCOMFORT NOTED. IV SITES TO LFA & RIGHT WRIST INTACT & PATENT. HD DUE IN AM ON 12/06/16. ALL NEEDS ATTENDED & MET. REPOSITIONED IN BED. KEPT CLEAN & DRY. 1:1 SITTER AT BEDSIDE. WILL ENDORSE TO AM SHIFT.
[2016-12-06 07:21] LABS: BASOPHILS % (AUTO) 0.2 % (0.0-2.0); EOSINOPHILS # (AUTO) 1.7 /CMM (0.0-0.7); HEMATOCRIT 28 % (33-45); HEMOGLOBIN 9.1 g/dL (11.5-14.8); LYMPHOCYTES % (AUTO) 11.9 % (20.0-44.0); MEAN CORPUSCULAR HEMOGLOBIN 33 PG (26.0-33.0); MEAN CORPUSCULAR HGB CONC 33 g/dl (31.0-36.0); MEAN CORPUSCULAR VOLUME 101 fL (82-100); MONOCYTES # (AUTO) 0.8 /CMM (0.1-1.30); NEUTROPHILS # (AUTO) 5.3 /CMM (1.8-8.9); NEUTROPHILS % (AUTO) 59.9 % (43.0-81.0); PLATELET COUNT (AUTO) 117 /CMM (150-450); RDW COEFFICIENT OF VARIATION 23.6 (11.5-15.0); RED BLOOD CELL COUNT(AUTO) 2.79 MIL/uL (4.0-5.2); WHITE BLOOD COUNT (AUTO) 8.8 K/uL (4.3-11.0)
[2016-12-06 07:33] LABS: CALCIUM, SERUM 8.4 mg/dL (8.5-10.1); CARBON DIOXIDE 27 mmol/L (21-32); CHLORIDE 107 mmol/L (98-107); CREATININE 2.6 mg/dL (0.6-1.3); GLUCOSE 115 mg/dL (74-106); PHOSPHORUS 2.1 mg/dL (2.5-4.9); POTASSIUM 3.9 mmol/L (3.5-5.1); SODIUM SERUM 140 mmol/L (136-145); UREA NITROGEN, BLOOD 39 mg/dL (7-18)
--- NOTE | 2016-12-06 07:45 | NUR ---
RN OPENING NOTES 1:1 SITTER AT BED SIDE. RECEIVE PT. IN BED A&OX1, CONFUSED. BREATHING UNLABORED AND EVENLY ON ROOM AIR. NO S/S OF ACUTE DISTRESS. IV FLUIDS RUNNING. PT. HAS G TUBE FEEDING IS BEING HELD. BED IS IN LOWEST LOCKED POSITION, 2 SIDE RAILS UP, AND INSTRUCTED PT. TO USE CALL LIGHT WITHIN REACH. WILL CONTINUE TO ASSESS AND MONITOR.
[2016-12-06 12:54] VITALS: BP 146/73
--- NOTE | 2016-12-06 17:15 | NUR ---
RN NOTES DISCHARGE INSTRUCTIONS GAVE REPORT TO PERFECTO GLORIA FROM [facility]. PICTURES WERE TAKEN BEFORE DISCHARGE. DISCHARGE INTRUCTIONS WERE PROVIDED IN PACKET, BELONGINGS LIST SIGNED, AND MEDICATION LIST WAS GIVEN.
--- NOTE | 2016-12-06 17:30 | NUR ---
TRANSFORMATION LEAD NOTES PT. WAS TAKEN TO [facility] BY AMBULANCE IN MEDICALLY STABLE CONDITION.
== END 2016-12-06 17:41 | DRG 377 ==
LOC: ER 08:11 → TELE 10:23 → MED 20:41
PROVIDERS: ADMIT Internal Medicine; ATTEND Internal Medicine
PROC: 5A1D70Z Performance of Urinary Filtration, Intermittent, Less than 6 Hours Per Day (ICD-10-PCS; 2016-12-02)
PROC: 30233N1 Transfusion of Nonautologous Red Blood Cells into Peripheral Vein, Percutaneous Approach (ICD-10-PCS; principal; 2016-12-04)
DX: K92.2 Gastrointestinal hemorrhage, unspecified (principal); G93.41 Metabolic encephalopathy; J90 Pleural effusion, not elsewhere classified; D68.59 Other primary thrombophilia; I12.0 Hypertensive chronic kidney disease with stage 5 chronic kidney disease or end stage renal disease; N18.6 End stage renal disease; G30.9 Alzheimer's disease, unspecified; F02.81 Dementia in other diseases classified elsewhere, unspecified severity, with behavioral disturbance; E83.9 Disorder of mineral metabolism, unspecified; I48.91 Unspecified atrial fibrillation; N39.0 Urinary tract infection, site not specified; D62 Acute posthemorrhagic anemia; E78.5 Hyperlipidemia, unspecified; I25.10 Atherosclerotic heart disease of native coronary artery without angina pectoris; D63.8 Anemia in other chronic diseases classified elsewhere; K21.9 Gastro-esophageal reflux disease without esophagitis; R13.10 Dysphagia, unspecified; Z93.1 Gastrostomy status; Z87.442 Personal history of urinary calculi; Z99.2 Dependence on renal dialysis; Z87.440 Personal history of urinary (tract) infections; L98.8 Other specified disorders of the skin and subcutaneous tissue; B96.5 Pseudomonas (aeruginosa) (mallei) (pseudomallei) as the cause of diseases classified elsewhere; K29.70 Gastritis, unspecified, without bleeding
CPT/HCPCS: 36415; 71010-TC; 80048-TC; 80053-TC; 80061-TC; 80076-TC; 81000-TC; 83605-TC; 83735-TC; 84100-TC; 84484-TC; 85025-TC; 85027-TC; 85730-TC; 86850-TC; 86921-TC; 87040-TC; 87081-TC; 87086-TC; 87186-TC; 90935-TC; A4216; A4606; A6402; A6403; C9113; J0885; J1956; J2405; J2916; J3490; J7030; J7040; J7050; P9016-BL; Z7610

== ENCOUNTER 2017-03-19 14:56 | Inpatient (IN) | payer MEDICARE, OTHER ==
[~2017-03-19] VITALS: Ht 152.4 cm; Wt 45.6 kg
[~2017-03-19 14:56] MED LIST changes: -FOLI0.8T2 GT; +NITR0.4T48 SL; -NITR0.4T6 SL
[2017-03-19 15:52] LABS: EOSINOPHILS # (AUTO) 0.1 /CMM (0.0-0.7); EOSINOPHILS % (AUTO) 0.9 % (0.0-6.0); HEMATOCRIT 27 % (33-45); HEMOGLOBIN 8.5 g/dL (11.5-14.8); LYMPHOCYTES # (AUTO) 2.3 /CMM (0.8-4.8); LYMPHOCYTES % (AUTO) 25.6 % (20.0-44.0); MEAN CORPUSCULAR HEMOGLOBIN 31 PG (26.0-33.0); MEAN CORPUSCULAR HGB CONC 32 g/dl (31.0-36.0); MEAN CORPUSCULAR VOLUME 98 fL (82-100); MONOCYTES # (AUTO) 1.4 /CMM (0.1-1.30); MONOCYTES % (AUTO) 15.3 % (2.0-12.0); NEUTROPHILS # (AUTO) 5.3 /CMM (1.8-8.9); NEUTROPHILS % (AUTO) 58.2 % (43.0-81.0); PLATELET COUNT (AUTO) 309 /CMM (150-450); RDW COEFFICIENT OF VARIATION 19.9 (11.5-15.0); RED BLOOD CELL COUNT(AUTO) 2.72 MIL/uL (4.0-5.2)
[2017-03-19 16:03] LABS: CALCIUM, SERUM 9.1 mg/dL (8.5-10.1); CARBON DIOXIDE 26 mmol/L (21-32); CHLORIDE 98 mmol/L (98-107); CREATININE 3.3 mg/dL (0.6-1.3); GLUCOSE 93 mg/dL (74-106); POTASSIUM 5.4 mmol/L (3.5-5.1); SODIUM SERUM 135 mmol/L (136-145); UREA NITROGEN, BLOOD 62 mg/dL (7-18)
[2017-03-19 16:14] LABS: INR 0.96 (0.87-1.13)
[2017-03-19 16:16] LABS: B-TYPE NATRIURETIC PEPTIDE 2000 PG/ML (0-125)
[2017-03-19 16:29] LABS: BAND % (MANUAL) 4 % (0.0-5.0); EOSINOPHILS % (MANUAL) 3 % (0-4); LYMPHOCYTES % (MANUAL) 16 % (16-48); MONOCYTES % (MANUAL) 12 % (0-11.0); NEUTROPHILS % (MANUAL) 65 (42-76)
[2017-03-19] MEDS ORDERED: DIPH-530 GT (18:01)
[2017-03-19] MEDS ORDERED: HYDR-552 GT (18:01)
[2017-03-19] MEDS ORDERED: ACYC5CRE2 TP (18:01)
[2017-03-19] MEDS ORDERED: SEVE2.4P3 GT (18:01)
[2017-03-19] MEDS ORDERED: ACET325T53 GT (18:01)
[2017-03-19] MEDS ORDERED: OMEP20CA10 GT (18:01)
[2017-03-19] MEDS ORDERED: ACYC400T GT (18:01)
[2017-03-19] MEDS ORDERED: AMIN887L GT (18:01)
[2017-03-19 20:25] VITALS: BP 132/67
[2017-03-19 21:00] VITALS: BP 132/67
[2017-03-19] MEDS ORDERED: HYDROCODONE/APAP 5/325MG 1 EACH TABLET GT PRN (22:00)
[2017-03-19] MEDS ORDERED: NITROGLYCERIN 0.4 MG/TAB BOTTLE SL PRN (22:00)
[2017-03-19] MEDS ORDERED: ALBUTEROL HALF STRENGTH 1.25 MG/3 ML VIAL.NEB IH PRN (22:00)
[2017-03-19] MEDS ORDERED: Z GUARD REMEDY 2 OZ OINT TP PRN (22:00)
[2017-03-19] MEDS ORDERED: RENAL NOVASOURCE 1,000 ML BOTTLE GT PRN (22:00)
[2017-03-19] MEDS ORDERED: ONDANSETRON HCL/PF 4 MG/2 ML VIAL IVP PRN (22:00)
[2017-03-19] MEDS ORDERED: ACETAMINOPHEN 650 MG/SUPP.RECT RC PRN (22:00)
[2017-03-20] VITALS: BP 121/58
[2017-03-20 00:42] LABS: IRON, SERUM 74 ug/dl (50-175); TOTAL IRON BINDING CAPACITY 294 ug/dl (250-450)
[2017-03-20 00:45] LABS: FERRITIN 1866 ng/mL (8-388)
[2017-03-20 04:00] VITALS: BP_SYST 130; BP_SYST 131; BP_DIAS 60
[2017-03-20] MEDS ORDERED: hydrALAZINE HCL 25 MG TABLET ONE (04:53)
[2017-03-20] MEDS: hydrALAZINE HCL 25 MG TABLET GT SCH ×3 (05:35→22:06)
[2017-03-20] MEDS ORDERED: RENAL NOVASOURCE 1,000 ML BOTTLE GT PRN (07:21)
[2017-03-20 07:50] LABS: BASOPHILS % (AUTO) 0.5 % (0.0-2.0); EOSINOPHILS # (AUTO) 0.2 /CMM (0.0-0.7); EOSINOPHILS % (AUTO) 2.5 % (0.0-6.0); HEMATOCRIT 26 % (33-45); HEMOGLOBIN 8.2 g/dL (11.5-14.8); LYMPHOCYTES # (AUTO) 1.1 /CMM (0.8-4.8); LYMPHOCYTES % (AUTO) 14.7 % (20.0-44.0); MEAN CORPUSCULAR HEMOGLOBIN 32 PG (26.0-33.0); MEAN CORPUSCULAR HGB CONC 32 g/dl (31.0-36.0); MEAN CORPUSCULAR VOLUME 99 fL (82-100); MONOCYTES # (AUTO) 1.1 /CMM (0.1-1.30); MONOCYTES % (AUTO) 14.1 % (2.0-12.0); NEUTROPHILS # (AUTO) 5.3 /CMM (1.8-8.9); NEUTROPHILS % (AUTO) 68.2 % (43.0-81.0); PLATELET COUNT (AUTO) 284 /CMM (150-450); RDW COEFFICIENT OF VARIATION 19.5 (11.5-15.0); RED BLOOD CELL COUNT(AUTO) 2.58 MIL/uL (4.0-5.2); WHITE BLOOD COUNT (AUTO) 7.8 K/uL (4.3-11.0)
[2017-03-20 08:00] VITALS: BP 122/52
[2017-03-20 08:02] LABS: CARBON DIOXIDE 24 mmol/L (21-32); CHLORIDE 96 mmol/L (98-107); GLUCOSE 134 mg/dL (74-106); PHOSPHORUS 6.2 mg/dL (2.5-4.9); POTASSIUM 4.6 mmol/L (3.5-5.1); SODIUM SERUM 131 mmol/L (136-145); UREA NITROGEN, BLOOD 78 mg/dL (7-18)
[2017-03-20 08:05] LABS: CHOLESTEROL 94 mg/dL (<200); HDL CHOLESTEROL 58 mg/dL (40-60); LDL 30 mg/dL (0-99); TRIGLYCERIDES 93 mg/dL (30-150)
[2017-03-20] MEDS: METOPROLOL TARTRATE 25 MG TABLET GT SCH ×3 (09:00→19:13)
[2017-03-20] MEDS: ACYCLOVIR 200 MG CAPSULE GT SCH ×2 (09:20→13:09)
[2017-03-20] MEDS: FOLIC ACID 1 MG TABLET GT SCH (09:21)
[2017-03-20] MEDS: VIT B CMPLX 3/FA/VIT C/BIOTIN 1 TAB TABLET GT SCH (09:21)
[2017-03-20] MEDS: MEMANTINE HCL 5 MG TABLET GT SCH (09:22)
[2017-03-20] MEDS: FERROUS SULFATE (325 MG) 325 MG/TAB TABLET GT SCH (09:22)
[2017-03-20] MEDS: OLANZAPINE 5 MG TABLET GT SCH (09:22)
[2017-03-20] MEDS ORDERED: EPOETIN ALFA (10,000 UNIT) 10,000 UNIT/ML VIAL IV ONE (11:00)
[2017-03-20] MEDS: ACYCLOVIR 5% CREAM 5 GM TUBE TP SCH ×2 (11:26→17:50)
[2017-03-20 16:57] VITALS: BP 120/51
[2017-03-20] MEDS ORDERED: ZINC OXIDE 30 GM TUBE TP PRN (18:00)
[2017-03-20] MEDS ORDERED: NYSTATIN TOP POWDER 15 GM BOTTLE TP SCH (18:00)
[2017-03-20 20:00] VITALS: BP_SYST 127; BP_SYST 129; BP_DIAS 54
[2017-03-20] MEDS: ACYCLOVIR IV 500 MG in IV D5W 100 ML IV SCH (20:36)
[2017-03-20] MEDS ORDERED: ACYCLOVIR IV 500 MG in IV D5W 100 ML IV SCH (21:00)
[2017-03-21] VITALS: BP 114/70
[2017-03-21 04:00] VITALS: BP 101/46
[2017-03-21] MEDS: hydrALAZINE HCL 25 MG TABLET GT SCH ×2 (05:00→13:00)
[2017-03-21] MEDS: ACYCLOVIR IV 500 MG in IV D5W 100 ML IV SCH (05:14)
[2017-03-21 08:00] VITALS: BP 103/50
[2017-03-21] MEDS: FOLIC ACID 1 MG TABLET GT SCH (08:57)
[2017-03-21] MEDS: FERROUS SULFATE (325 MG) 325 MG/TAB TABLET GT SCH (08:58)
[2017-03-21] MEDS: MEMANTINE HCL 5 MG TABLET GT SCH (08:58)
[2017-03-21] MEDS: VIT B CMPLX 3/FA/VIT C/BIOTIN 1 TAB TABLET GT SCH (08:58)
[2017-03-21] MEDS: METOPROLOL TARTRATE 25 MG TABLET GT SCH ×2 (09:00→16:12)
[2017-03-21] MEDS: OLANZAPINE 5 MG TABLET GT SCH (09:00)
[2017-03-21] MEDS: ACYCLOVIR 5% CREAM 5 GM TUBE TP SCH ×2 (09:05→16:12)
[2017-03-21 16:12] VITALS: BP 104/60
== END 2017-03-21 17:17 | DRG 682 ==
LOC: ER 14:58 → TELE 20:40 → UNDOADMIN 20:40 → TELE 20:45 → MED 23:12 → TELE 03-20 00:42 → MED 03-21 08:18
PROVIDERS: ADMIT Internal Medicine; ATTEND Internal Medicine
PROC: 5A1D70Z Performance of Urinary Filtration, Intermittent, Less than 6 Hours Per Day (ICD-10-PCS; principal; 2017-03-20)
DX: I12.0 Hypertensive chronic kidney disease with stage 5 chronic kidney disease or end stage renal disease (principal); G93.40 Encephalopathy, unspecified; J90 Pleural effusion, not elsewhere classified; E87.5 Hyperkalemia; E87.1 Hypo-osmolality and hyponatremia; E87.70 Fluid overload, unspecified; B00.89 Other herpesviral infection; N18.6 End stage renal disease; I48.91 Unspecified atrial fibrillation; Z93.1 Gastrostomy status; E78.5 Hyperlipidemia, unspecified; D63.8 Anemia in other chronic diseases classified elsewhere; G30.9 Alzheimer's disease, unspecified; F02.80 Dementia in other diseases classified elsewhere, unspecified severity, without behavioral disturbance, psychotic disturbance, mood disturbance, and anxiety; I25.10 Atherosclerotic heart disease of native coronary artery without angina pectoris; K21.9 Gastro-esophageal reflux disease without esophagitis; Z66 Do not resuscitate; Z87.442 Personal history of urinary calculi; Z99.2 Dependence on renal dialysis; L98.8 Other specified disorders of the skin and subcutaneous tissue
CPT/HCPCS: 36415; 71045-TC; 80048-TC; 80061-TC; 82728-TC; 82962-TC; 83540-TC; 83735-TC; 83880; 84100-TC; 85025-TC; 85045-TC; 85730-TC; 90935-TC; A4606; A6403; J0133; J0885; J7050; J7060; Z7610

== ENCOUNTER 2017-04-28 07:39 | Inpatient (IN) | payer MEDICARE, OTHER ==
[~2017-04-28] VITALS: Ht 152.4 cm; Wt 49.4 kg
[~2017-04-28 07:39] MED LIST changes: +ACET325T53 GT; +ACYC400T GT; +ACYC5CRE2 TP; +AMIN887L GT; +DIPH-530 GT; -FERR-58 GT; +FERR325T24 GT; +HYDR-552 GT; +OMEP20CA10 GT; +SEVE2.4P3 GT
--- NOTE | 2017-04-28 07:49 | NUR ---
[id number] FROM [facility] FOR LOW O2 SAT DURING HEMODIALYSIS. PT ARRIVED ON NRM. PT IS ALTERED, NON VERBAL. UNABLE TO COMMUNICATE WITH THE PATIENT. PLACED ON GOWN, ON CONT CARDIAC AND POX MONITORING. WILL CONTINUE TO MONITOR.
[2017-04-28] MEDS ORDERED: ONDANSETRON HCL/PF 4 MG/2 ML VIAL ONE (08:30)
[2017-04-28] MEDS ORDERED: DILTIAZEM HCL 50 MG IV IV ONE ×2 (08:30→10:00)
[2017-04-28] MEDS ORDERED: ONDANSETRON HCL/PF - ER 4 MG/2 ML VIAL IV ONE (08:30)
[2017-04-28] MEDS ORDERED: DILTIAZEM HCL 50 MG IV ONE (08:31)
--- NOTE | 2017-04-28 08:33 | NUR ---
PT VOMITTED X1, DR. VARELA NOTIFIED W/ NEW ORDER
[2017-04-28 09:16] LABS: BASOPHILS % (AUTO) 0.2 % (0.0-2.0); HEMATOCRIT 34 % (33-45); HEMOGLOBIN 10.3 g/dL (11.5-14.8); LYMPHOCYTES # (AUTO) 0.6 /CMM (0.8-4.8); LYMPHOCYTES % (AUTO) 2.5 % (20.0-44.0); MEAN CORPUSCULAR HEMOGLOBIN 29 PG (26.0-33.0); MEAN CORPUSCULAR HGB CONC 31 g/dl (31.0-36.0); MEAN CORPUSCULAR VOLUME 94 fL (82-100); MONOCYTES # (AUTO) 1.1 /CMM (0.1-1.30); MONOCYTES % (AUTO) 4.8 % (2.0-12.0); NEUTROPHILS # (AUTO) 20.8 /CMM (1.8-8.9); NEUTROPHILS % (AUTO) 92.5 % (43.0-81.0); PLATELET COUNT (AUTO) 225 /CMM (150-450); RED BLOOD CELL COUNT(AUTO) 3.61 MIL/uL (4.0-5.2); WHITE BLOOD COUNT (AUTO) 22.5 K/uL (4.3-11.0)
[2017-04-28 09:18] LABS: CALCIUM, SERUM 8.2 mg/dL (8.5-10.1); CARBON DIOXIDE 19 mmol/L (21-32); CHLORIDE 95 mmol/L (98-107); CREATININE 4.1 mg/dL (0.6-1.3); GLUCOSE 80 mg/dL (74-106); POTASSIUM 4.3 mmol/L (3.5-5.1); SODIUM SERUM 138 mmol/L (136-145); UREA NITROGEN, BLOOD 58 mg/dL (7-18)
[2017-04-28 09:24] LABS: ALANINE AMINOTRANSFERASE 52 U/L (12-78); ALBUMIN 2.7 g/dL (3.4-5.0); ALKALINE PHOSPHATASE 189 U/L (46-116); ASPARTATE AMINOTRANSFERASE 111 U/L (15-37); BILIRUBIN,DIRECT 0.3 mg/dL (0.0-0.2); BILIRUBIN,TOTAL 0.6 mg/dL (0.2-1.0); TOTAL PROTEIN, SERUM 8.8 g/dL (6.4-8.2)
[2017-04-28 09:43] LABS: INR 1.04 (0.87-1.13)
[2017-04-28 09:44] LABS: TROPONIN I 0.103 ng/mL (0.00-0.056)
--- NOTE | 2017-04-28 09:59 | NUR ---
CALLED PHARMACY FOR HAIDER LEDBETTER. SPOKE TO JORGE
[2017-04-28] MEDS ORDERED: PIPERACILLIN /TAZOBACTAM 3.375 G in IV D5W 50 ML IV ONE (10:00)
[2017-04-28] MEDS ORDERED: IV NS 0.9% 500 ML BAG IV ONE (10:00)
[2017-04-28] MEDS ORDERED: DILTIAZEM HCL 25 MG IV ONE (10:01)
--- NOTE | 2017-04-28 10:02 | NUR ---
PT HAD A BOWEL MOVEMENT. PT CLEANED AND PROVIDED A NEW GOWN. PT NOTED WITH REDNESS W. SKIN OPENING TO VAGINAL AREA AND AROUND THE RECTUM. PT HAS REDNESS TO SACRAL AREA
[2017-04-28 10:06] LABS: BAND % (MANUAL) 17 % (0.0-5.0); LYMPHOCYTES % (MANUAL) 9 % (16-48); MONOCYTES % (MANUAL) 2 % (0-11.0); NEUTROPHILS % (MANUAL) 72 (42-76)
--- NOTE | 2017-04-28 11:16 | NUR ---
PAGED EPIC FOR PANEL
--- NOTE | 2017-04-28 13:45 | NUR ---
REPORT GIVEN TO ORION GLORIA
[2017-04-28 14:00] VITALS: BP 148/90
--- NOTE | 2017-04-28 14:15 | NUR ---
WALDEMAR RN NOTES RECEIVED PATIENT VIA JOE, CHAIR AND COUCH MAKER FIONA GAVE REPORT, PATIENT ON FACE MASK 6L, SATURATING 98% ON TELE MONITORING SR-ST 90S-100S, PATIENT HAS G-TUBE CLAMPED, R CHEST WALL GHULAM CATHETER CAME FROM [facility] DUE TO HYPOXIA AND TACHYCARDIA, PATIENT IS AOX1, SPEAKS TAGALOG, IV R HAND 22G AND L HAND 20G, WITH DIAPER LOOSE STOOL DIARRHEA NOTED WITH EXCORIATION IN SACRAL AREA AND PERINEAL AREA, AWAITING ADMITTING ORDERS FROM MARYCRUZ NORMAN NP. BED IN LOW AND LOCKED POSITION CALL LIGHT WITHIN REACH, WILL CONTINUE TO MONITOR, BED IN LOW AND LOCKED POSITION CALL LIGHT WITHIN REACH, WILL CONTINUE TO MONITOR.
[2017-04-28 16:00] VITALS: BP 110/49
--- NOTE | 2017-04-28 17:17 | NUR ---
WALDEMAR RN NOTES AWAITING ADMITTING ORDERS TROY NORMAN CALLED AND AWARE.
[2017-04-28] MEDS ORDERED: ACETAMINOPHEN 325 MG TABLET PO PRN (18:00)
[2017-04-28] MEDS ORDERED: HYDROCODONE/APAP 5/325MG 1 EACH TABLET PO PRN (18:00)
[2017-04-28] MEDS ORDERED: ZOLPIDEM TARTRATE 5 MG TABLET PO PRN (18:00)
[2017-04-28] MEDS ORDERED: ALBUTEROL FS 2.5 MG/0.5 ML VIAL.NEB NEB PRN (18:00)
[2017-04-28] MEDS ORDERED: MAGNESIUM HYDROXIDE 30 ML UDC PO PRN (18:00)
[2017-04-28] MEDS ORDERED: ONDANSETRON HCL/PF 4 MG/2 ML VIAL IVP PRN (18:00)
[2017-04-28] MEDS ORDERED: Z GUARD REMEDY 2 OZ OINT TP PRN (18:00)
[2017-04-28] MEDS ORDERED: IPRATROPIUM NEB FS 0.5 MG/2.5 ML AMPUL.NEB NEB PRN (18:00)
[2017-04-28] MEDS: IV NS 0.9% 1,000 ML IV PRN (18:25)
[2017-04-28] MEDS ORDERED: FEE PK DOSING 1 MIN EA MC ONE (18:35)
[2017-04-28] MEDS: methylPREDNISolone SOD SUCC 40 MG/ML VIAL IV SCH ×2 (18:37→21:27)
--- NOTE | 2017-04-28 18:57 | NUR ---
WALDEMAR RN NOTES PATIENT TROPONIN TRENDING UP, MARYCRUZ NORMAN SINGING TELEGRAM PERFORMER MADE AWARE, PATIENT RESTING COMFORTABLY IN BED, TELE HR 94, O2 4L SATURATING WELL, WILL ENDORSE TO SEASONAL RECRUITER FOR CONTINUITY OF CARE.
[2017-04-28] MEDS ORDERED: RENAL NOVASOURCE 1,000 ML BOTTLE GT PRN (19:00)
[2017-04-28] MEDS ORDERED: VANCOMYCIN 1 GM in IV D5W 250 ML IV ONE (19:30)
[2017-04-28 20:00] VITALS: BP 103/55
--- NOTE | 2017-04-28 20:00 | NUR ---
WALDEMAR RN NOTE PT IN BED AWAKE. A/O X 1 CONFUSED. KEPT ON REMOVING N/C, REMINDED PT NOT TO DO THAT. O2 SAT RA 93%. KEPT HOB ELEVATED. NO DISTRESS OR DISCOMFORT NOTED. DENIES PAIN. IVF NS INFUSING AT 75 ML/HR, NO S/S OF INFILTRATION NOTED. VANCO 1 G IVPB INFUSING ORDERED. ON TELE SR HR 97. GT INTACT AND PATENT. WILL START FEEDING NOVOSOURCE AT 40 ML/HR. REPOSITION HER FOR SKIN MANAGEMENT. KEPT HER DRY AND CLEAN. Z GUARD APPLIED. VSS. CONTINUE TO MONITOR HER.
[2017-04-28] MEDS: hydrALAZINE HCL 25 MG TABLET GT SCH (21:00)
[2017-04-28] MEDS: MEROPENEM 500 MG in IV NS 0.9% 50 ML IV SCH (21:22)
[2017-04-28] MEDS: HEPARIN SODIUM, PORCINE 5000 UNITS/1 ML VIAL SQ SCH (21:28)
[2017-04-28] MEDS: METRONIDAZOLE 500MG/ NS 100ML 500 MG in PREMIX 1 EA IV SCH (21:31)
[2017-04-29] VITALS (7 sets, daily range): BP systolic 82–129; BP diastolic 42–65
[2017-04-29 03:32] LABS: APPEARANCE,URINE TURBID (CLEAR); BILIRUBIN,URINE NEGATIVE (NEGATIVE); BLOOD, URINE 3+ Ery/uL (NEGATIVE); COLOR,URINE DARK YELLO (YELLOW); KETONES,URINE NEGATIVE (NEGATIVE); LEUKOCYTE ESTERASE ,URINE 2+ (NEGATIVE); NITRITE, URINE NEGATIVE (NEGATIVE); PH,URINE 5.5 (5.0-8.0); PROTEIN,URINE 2+ mg/dl (NEGATIVE); UGLUCOSE NEGATIVE (NEGATIVE); UROBILINOGEN,URINE 0.2 EU/dL (0.2)
[2017-04-29 03:37] LABS: BACTERIA,URINE Few /HPF (None Seen); SQUAMOUS EPITHELIAL CELL,UR Rare /HPF (None Seen); WBC,URINE TOO NUMEROUS TO COUN /HPF (0-3)
[2017-04-29] MEDS: METRONIDAZOLE 500MG/ NS 100ML 500 MG in PREMIX 1 EA IV SCH ×3 (04:53→21:13)
[2017-04-29] MEDS: methylPREDNISolone SOD SUCC 40 MG/ML VIAL IV SCH ×3 (04:53→21:14)
[2017-04-29] MEDS: hydrALAZINE HCL 25 MG TABLET GT SCH ×3 (04:53→21:14)
--- NOTE | 2017-04-29 06:35 | NUR ---
WALDEMAR RN NOTE PT IN BED ASLEEP, AROUSABLE. NO DISTRESS OR DISCOMFORT NOTED. DENIES PAIN. ON TELE SINUS HR 87. REPOSITION HER Q2H, KEPT HER DRY AND CLEAN. GT INTACT AND PATENT INFUSING FEEDING WELL, O ML RESIDUAL NOTED. FLEXISEAL INTACT AND PATENT, ONLY 20 ML OF LIQUIDY STOOL NOTED. ALL NEEDS ATTENDED. SIDE RAILS UP X 3 AND CALL LIGHT WITHIN REACH. WILL ENDORSE TO DAY SHIFT NURSE FOR CONTINUE TO CARE.
[2017-04-29 07:04] LABS: HEMATOCRIT 28 % (33-45); HEMOGLOBIN 8.9 g/dL (11.5-14.8); LYMPHOCYTES # (AUTO) 0.4 /CMM (0.8-4.8); LYMPHOCYTES % (AUTO) 2.7 % (20.0-44.0); MEAN CORPUSCULAR HEMOGLOBIN 29 PG (26.0-33.0); MEAN CORPUSCULAR HGB CONC 32 g/dl (31.0-36.0); MEAN CORPUSCULAR VOLUME 93 fL (82-100); MONOCYTES # (AUTO) 0.2 /CMM (0.1-1.30); MONOCYTES % (AUTO) 1.2 % (2.0-12.0); NEUTROPHILS # (AUTO) 15.1 /CMM (1.8-8.9); NEUTROPHILS % (AUTO) 96.1 % (43.0-81.0); PLATELET COUNT (AUTO) 187 /CMM (150-450); RDW COEFFICIENT OF VARIATION 22.9 (11.5-15.0); RED BLOOD CELL COUNT(AUTO) 3.06 MIL/uL (4.0-5.2); WHITE BLOOD COUNT (AUTO) 15.8 K/uL (4.3-11.0)
[2017-04-29 07:26] LABS: CALCIUM, SERUM 7.9 mg/dL (8.5-10.1); CARBON DIOXIDE 22 mmol/L (21-32); CHLORIDE 100 mmol/L (98-107); CREATININE 5.1 mg/dL (0.6-1.3); GLUCOSE 144 mg/dL (74-106); MAGNESIUM 2.7 mg/dL (1.8-2.4); PHOSPHORUS 6.9 mg/dL (2.5-4.9); POTASSIUM 3.9 mmol/L (3.5-5.1); SODIUM SERUM 139 mmol/L (136-145)
[2017-04-29 07:57] LABS: UREA NITROGEN, BLOOD 93 mg/dL (7-18)
[2017-04-29 08:01] LABS: CHOLESTEROL 80 mg/dL (<200); HDL CHOLESTEROL 26 mg/dL (40-60); LDL 39 mg/dL (0-99); TRIGLYCERIDES 96 mg/dL (30-150)
--- NOTE | 2017-04-29 08:07 | NUR ---
WALDEMAR RN NOTE PT IN BED AWAKE , NO DISTRESS OR DISCOMFORT NOTED. DENIES PAIN. ON TELE SINUS HR 82. REPOSITION HER Q2H, KEPT HER DRY AND CLEAN. GT INTACT AND PATENT INFUSING FEEDING WELL,KEEP HOB ELEVATED AT ALL TIME FLEXISEAL INTACT AND PATENT, NO OUTPUT NOTED AT THIS TIME OF . ALL NEEDS ATTENDED. SIDE RAILS UP X 3 AND CALL LIGHT WITHIN REACH. WILL CONTINUE TO CARE. IV HL INTACTON RT HAND NO REDNESS NOTED , CONT ON IVF ORDERED, BED IN LOWEST AND LOCKED POSITION
[2017-04-29] MEDS: FERROUS SULFATE (325 MG) 325 MG/TAB TABLET GT SCH (08:32)
[2017-04-29] MEDS: FOLIC ACID 1 MG TABLET GT SCH (08:32)
[2017-04-29] MEDS: VIT B CMPLX 3/FA/VIT C/BIOTIN 1 TAB TABLET GT SCH (08:32)
[2017-04-29] MEDS: MEMANTINE HCL 5 MG TABLET GT SCH (08:32)
[2017-04-29] MEDS: SEVELAMER CARBONATE 0.8 GM POWD.PACK GT SCH ×3 (08:32→16:05)
[2017-04-29] MEDS: HEPARIN SODIUM, PORCINE 5000 UNITS/1 ML VIAL SQ SCH ×2 (08:34→21:15)
[2017-04-29] MEDS: METOPROLOL TARTRATE 25 MG TABLET GT SCH ×2 (08:44→16:38)
--- NOTE | 2017-04-29 08:47 | NUR ---
WALDEMAR RN NOTE WILL HAVE HD ,HOLD LOPRESSOR, BP 104/54
[2017-04-29 09:44] LABS: BAND % (MANUAL) 5 % (0.0-5.0); LYMPHOCYTES % (MANUAL) 4 % (16-48); MONOCYTES % (MANUAL) 2 % (0-11.0); NEUTROPHILS % (MANUAL) 89 (42-76)
--- NOTE | 2017-04-29 12:29 | NUR ---
WALDEMAR GLORIA NOTE ON HD AT THIS TIME Addendum: 04/29/17 at 1230 by MARCIANO BAUER RN BULL NASSAR
[2017-04-29] MEDS ORDERED: ALTEPLASE CATHFLO 2 MG/VIAL XX ONE ×2 (12:30→13:30)
[2017-04-29] MEDS ORDERED: ALBUMIN 25% 25 GM in PREMIX 1 EA IV PRN (12:30)
--- NOTE | 2017-04-29 13:51 | NUR ---
WALDEMAR RN NOTE HD COMPLECTED ,NO FLUIDS REMOVED. BP 92/46 HR 88 ,WILL CONT TO MONITOR CLOSELY
--- NOTE | 2017-04-29 14:22 | NUR ---
WALDEMAR RN NOTE PER DIETARY OK TO CONT GTUBE FEEDING AT 30 ML PER HOUR X24 HOUR ,ORDER CARRIED OUT
[2017-04-29] MEDS: VANCOMYCIN 500 MG in IV D5W 100 ML IV PRN (14:26)
--- NOTE | 2017-04-29 14:27 | NUR ---
WALDEMAR RN NOTE PER DAISY PHARMACISTS HOLD VANCO TO ADMINISTER . EVIO LEVEL 24, WILL F\U
[2017-04-29] MEDS: IV NS 0.9% 1,000 ML IV PRN (15:20)
--- NOTE | 2017-04-29 16:04 | NUR ---
Patient resides at [facility] [phone]. She is on hemodialysis every MWF at [facility] [phone]. Current plan is to dc back to SNF once discharge. Addendum: 04/29/17 at 1605 by BERENICE GAGE RN Amended: Links added.
--- NOTE | 2017-04-29 16:38 | NUR ---
AL GLORIA NOTE PER HOSPITAL PROTOCOL,PLACED ON C DIF ISOLATION ASLO DURING HD BP WAS LOW ,ALBUMIN IV GIVEN BY HD NURSE , MOISE MCKENNA THIS TIME ,WILL F\U Addendum: 04/29/17 at 1641 by MARCIANO BAUER RN AL GLORIA NOTE ECHO IS DONE ORDERED ,KEEP CLEAN DRY
--- NOTE | 2017-04-29 18:20 | NUR ---
CUSTOMER SERVICE SECURITY OFFICER NOTE ALL NEEDS ATTENDED WILL CONT TO MONITOR CLOSELY
[2017-04-29] MEDS: MEROPENEM 500 MG in IV NS 0.9% 50 ML IV SCH (19:51)
--- NOTE | 2017-04-29 20:00 | NUR ---
SWAT TEAM MEMBER NOTE PT IN BED AWAKE, CONFUSED. A/O X 1 TAGALOG SPEAKING. NO DISTRESS OR DISCOMFORT NOTED. DENIES PAIN. ON TELE SR HR 94. GTF NOVASOURCE INFUSING AT 30 ML/HR, 0 ML RESIDUAL NOTED. IVF NS @ 75 ML/HR INFUSING WELL AT LT HAND # 20 G, NO S/S OF INFILTRATION NOTED. KEPT HER DRY AND CLEAN. REPOSITION HER FOR SKIN MANAGEMENT. FLEXISEAL INTACT AND PATENT DRAINING LIQUIDY DARK BROWNISH COLOR STOOL. PT IS ISOLATION FOR C DIFF. ISOLATION PRECAUTIONS TAKEN. SIDE RAILS UP X 2 AND CALL LIGHT WITHIN REACH. VSS. CONTINUE TO MONITOR HER.
[2017-04-29] MEDS: COD LIVER OIL/ZINC OXIDE 120 GM TUBE TP SCH (21:33)
[2017-04-30] VITALS: BP 128/71
--- NOTE | 2017-04-30 00:46 | NUR ---
PIPED BUTTONHOLE MACHINE OPERATOR NOTE PT PULLED HER IV LINE OUT OF LEFT HAND AND NOTED BLEEDING. PRESSURE APPLIED. SECURED THE SITE WITH 2X2 GAUZE. PT KEPT ON PULLING ALL THE TUBINGS. LU SIMMONS INFORMED AND RECEIVED NEW ORDER OF SOFT WRIST RESTRAINT. ORDER NOTED AND CARRIED OUT. APPLIED RESTRAINTS.
--- NOTE | 2017-04-30 01:36 | NUR ---
ADVOCACY DIRECTOR NOTE PT UNABLE TO GO TO SLEEP, AMBIEN 5 MG VIA GT GIVEN. CONTINUE TO MONITOR HER.
--- NOTE | 2017-04-30 02:36 | NUR ---
CLIPPER MACHINE NOTE PT FALL ASLEEP, NO DISTRESS OR DISCOMFORT NOTED. REPOSITION HER Q2H, KEPT HER DRY AND CLEAN.
[2017-04-30 04:00] VITALS: BP 116/57
[2017-04-30] MEDS: RENAL NOVASOURCE 1,000 ML BOTTLE GT PRN (05:07)
[2017-04-30] MEDS: hydrALAZINE HCL 25 MG TABLET GT SCH ×3 (05:33→21:01)
[2017-04-30] MEDS: METRONIDAZOLE 500MG/ NS 100ML 500 MG in PREMIX 1 EA IV SCH ×3 (05:33→21:00)
[2017-04-30] MEDS: methylPREDNISolone SOD SUCC 40 MG/ML VIAL IV SCH (05:33)
--- NOTE | 2017-04-30 06:54 | NUR ---
LUNG PULLER NOTE PT IN BED ASLEEP, AROUSABLE. NO DISTRESS OR DISCOMFORT NOTED. NO S/S OF PAIN NOTED. BILATERAL SOFT WRIST RESTRAINTS ON. REPOSITION HER Q2H, KEPT HER DRY AND CLEAN. FLEXISEAL INTACT AND PATENT DRAINING LIQUIDY STOOL. SIDE RAILS UP X 2 AND CALL LIGHT WITHIN REACH. VSS. WILL ENDORSE TO DAY SHIFT NURSE FOR CONTINUE TO CARE.
--- NOTE | 2017-04-30 07:30 | NUR ---
GENERAL DENTIST NOTES RECEIVED PT ON BED SLEEPING . ON RESTRAINTS. ON TELE MONITOR SR. ON NASAL CANNULA 2L SATURATING WELL. IV ACCESS ON RIGHT HAND #22SL. HEAD OF BED ELEVATED. SIDE RAILS UP. CALL LIGHT WITHIN REACH. BED ALARM ON. WILL CONTINUE TO MONITOR PT CLOSELY.
[2017-04-30 08:00] VITALS: BP 113/55
[2017-04-30] MEDS: SEVELAMER CARBONATE 0.8 GM POWD.PACK GT SCH ×3 (08:41→16:45)
[2017-04-30] MEDS: METOPROLOL TARTRATE 25 MG TABLET GT SCH ×2 (08:41→16:45)
[2017-04-30] MEDS: FERROUS SULFATE (325 MG) 325 MG/TAB TABLET GT SCH (08:41)
[2017-04-30] MEDS: VIT B CMPLX 3/FA/VIT C/BIOTIN 1 TAB TABLET GT SCH (08:41)
[2017-04-30] MEDS: MEMANTINE HCL 5 MG TABLET GT SCH (08:42)
[2017-04-30] MEDS: FOLIC ACID 1 MG TABLET GT SCH (08:42)
[2017-04-30] MEDS: HEPARIN SODIUM, PORCINE 5000 UNITS/1 ML VIAL SQ SCH ×2 (08:44→21:09)
[2017-04-30] MEDS: IV NS 0.9% 1,000 ML IV PRN (08:45)
[2017-04-30] MEDS: COD LIVER OIL/ZINC OXIDE 120 GM TUBE TP SCH (08:45)
--- NOTE | 2017-04-30 10:04 | NUR ---
WOUND CARE CONSULT WOUND CARE RECEIVED CONSULT FOR SACRUM SKIN EXCORIATION. WOUND CARE WILL DEFER CONSULT AND ALL TREATMENT PLANS TO SURGICAL TEAM WHO ARE CURRENTLY FOLLOWING. PATIENT WITH SOM AT 13, ALL PRESSURE ULCER PREVENTION MEASURES NOTED TO BE IN PLACE AT THIS TIME. PATIENT ON 1ST STEP LOW AIRLOSS MATTRESS FOR SKIN MANAGEMENT.
--- NOTE | 2017-04-30 12:34 | NUR ---
MS RN NOTES HOLDING BLOOD PRESSURE MEDS SINCE PT IS GOING TO HD
[2017-04-30 16:00] VITALS: BP 110/42
[2017-04-30] MEDS: VANCOMYCIN 500 MG in IV D5W 100 ML IV PRN (17:56)
--- NOTE | 2017-04-30 18:26 | NUR ---
MS RN NOTES NO ACUTE CHANGES NOTED DURING THE SHIFT. DUE MEDS GIVEN. SIDE RAILS UP. CALL LIGHT WITHIN REACH. WILL ENDORSE TO THE PM NURSE.
[2017-04-30 20:00] VITALS: BP 131/59
--- NOTE | 2017-04-30 20:00 | NUR ---
RN INITIAL NOTE PT IN BED ASLEEP. NO DISTRESS OR DISCOMFORT NOTED. NO S/S OF PAIN NOTED. BILATERAL SOFT WRIST RESTRAINTS ON. FLEXISEAL INTACT AND PATENT DRAINING LIQUIDY STOOL. SIDE RAILS UP X 2 AND CALL LIGHT WITHIN REACH. BED IN THE LOW LOCKED POSITION. WILL CONTINUE TO MONITOR.
[2017-04-30] MEDS: MEROPENEM 500 MG in IV NS 0.9% 50 ML IV SCH (21:00)
[2017-05-01] VITALS (8 sets, daily range): BP systolic 89–132; BP diastolic 50–65
--- NOTE | 2017-05-01 03:45 | NUR ---
LUSTER REPAIRER NOTES REPORT GIVEN TO JASON ON 3W, PT TRANSFERRED TO ROOM 329
--- NOTE | 2017-05-01 03:55 | NUR ---
MS/RN OPENING NOTES PT RECEIVED VIA BED FROM [facility] FIRST FLOOR. ON 2L O2 VIA NC, BREATHING EVEN AND UNLABORED. NO SOB OR S/S OF PAIN NOTED. IV TO RIGHT HAND PATENT AND INTACT RUNNING IVF ORDERED. GT FEEDING RUNNING NOVASOURCE AT 30ML/HR. NO RESIDUAL NOTED. RECTAL TUBE IN PLACE WITH LITTLE LEAKING NOTED. BILATERAL SOFT WRIST RESTRAINTS IN PLACE, ORDERS RENEWED. RCW HD CATH IN PLACE, DRESSING C/D/I. ORIENTED PT TO ROOM AND CALL LIGHT. SIDE RAILS UPX2. BED IN LOW/LOCKED POSITION WITH CALL LIGHT IN REACH. BED ALARM ON FOR SAFETY. ISOLATION PRECAUTIONS IMPLEMENTED. WILL CONTINUE TO MONITOR
[2017-05-01] MEDS: hydrALAZINE HCL 25 MG TABLET GT SCH ×3 (04:46→21:00)
[2017-05-01] MEDS: RENAL NOVASOURCE 1,000 ML BOTTLE GT PRN (04:47)
[2017-05-01] MEDS: METRONIDAZOLE 500MG/ NS 100ML 500 MG in PREMIX 1 EA IV SCH (04:47)
--- NOTE | 2017-05-01 07:30 | NUR ---
MS/RN CLOSING NOTES PT AWAKE, RESTING COMFORTABLY IN BED. ON 2L O2 VIA NC, BREATHING EVEN AND UNLABORED. NO SOB, PAIN OR S/S OF DISTRESS. RCW HD CATH DRESSING C/D/I. RECTAL TUBE IN PLACE WITH SOME LEAKING NOTED. ISOLATION PRECAUTIONS IMPLEMENTED. GT RUNNING NOVASOURCE ORDERED. NO RESIDUALS NOTED. IV TO RIGHT HAND PATENT AND INTACT RUNNING IVF ORDERED. TURNED/REPOSITIONED Q2H, HEELS OFFLOADED. KEPT PT COMFORTABLE DURING SHIFT. ALL NEEDS MET. BED IN LOW/LOCKED POSITION WITH CALL LIGHT IN REACH AND SIDE RAILS UPX2. BILATERAL SOFT WRIST RESTRAINTS IN PLACE. EXTREMITIES NOTED WITH GOOD CIRCULATION. ENDORSED TO DAY SHIFT RN FIDEL.
[2017-05-01 08:43] LABS: RED BLOOD CELL COUNT(AUTO) 2.53 MIL/uL (4.0-5.2); WHITE BLOOD COUNT (AUTO) 22.6 K/uL (4.3-11.0)
[2017-05-01 08:44] LABS: HEMATOCRIT 24 % (33-45); HEMOGLOBIN 7.2 g/dL (11.5-14.8); LYMPHOCYTES # (AUTO) 1.2 /CMM (0.8-4.8); LYMPHOCYTES % (AUTO) 5.3 % (20.0-44.0); MEAN CORPUSCULAR HEMOGLOBIN 29 PG (26.0-33.0); MEAN CORPUSCULAR HGB CONC 31 g/dl (31.0-36.0); MEAN CORPUSCULAR VOLUME 93 fL (82-100); MONOCYTES # (AUTO) 1.3 /CMM (0.1-1.30); MONOCYTES % (AUTO) 5.8 % (2.0-12.0); NEUTROPHILS # (AUTO) 20.1 /CMM (1.8-8.9); NEUTROPHILS % (AUTO) 88.9 % (43.0-81.0); PLATELET COUNT (AUTO) 173 /CMM (150-450); RDW COEFFICIENT OF VARIATION 22.5 (11.5-15.0)
[2017-05-01] MEDS: METOPROLOL TARTRATE 25 MG TABLET GT SCH ×2 (09:00→17:00)
[2017-05-01] MEDS: VIT B CMPLX 3/FA/VIT C/BIOTIN 1 TAB TABLET GT SCH (09:03)
[2017-05-01] MEDS: FERROUS SULFATE (325 MG) 325 MG/TAB TABLET GT SCH (09:03)
[2017-05-01] MEDS: MEMANTINE HCL 5 MG TABLET GT SCH (09:03)
[2017-05-01] MEDS: FOLIC ACID 1 MG TABLET GT SCH (09:03)
[2017-05-01] MEDS: SEVELAMER CARBONATE 0.8 GM POWD.PACK GT SCH ×3 (09:04→17:24)
[2017-05-01] MEDS: HEPARIN SODIUM, PORCINE 5000 UNITS/1 ML VIAL SQ SCH ×2 (09:05→21:28)
[2017-05-01] MEDS: COD LIVER OIL/ZINC OXIDE 120 GM TUBE TP SCH (09:06)
[2017-05-01 09:28] LABS: CALCIUM, SERUM 7.3 mg/dL (8.5-10.1); CARBON DIOXIDE 14 mmol/L (21-32); CHLORIDE 111 mmol/L (98-107); CREATININE 4.1 mg/dL (0.6-1.3); GLUCOSE 126 mg/dL (74-106); MAGNESIUM 2.2 mg/dL (1.8-2.4); POTASSIUM 2.9 mmol/L (3.5-5.1); SODIUM SERUM 144 mmol/L (136-145)
[2017-05-01 09:32] LABS: UREA NITROGEN, BLOOD 118 mg/dL (7-18)
[2017-05-01] MEDS ORDERED: POTASSIUM CHLORIDE 20 MEQ TAB.PRT.SR PO ONE ×2 (11:30→12:30)
[2017-05-01] MEDS: METRONIDAZOLE 500 MG TABLET GT SCH ×2 (12:11→21:25)
[2017-05-01 14:14] LABS: OCCULT BLOOD STOOL POSITIVE (NEGATIVE)
[2017-05-01 14:18] LABS: IRON, SERUM 34 ug/dl (50-175); TOTAL IRON BINDING CAPACITY 87 ug/dl (250-450)
[2017-05-01] MEDS ORDERED: PANTOPRAZOLE 40 MG VIAL IV SCH (17:00)
[2017-05-01] MEDS ORDERED: IV NS 0.9% 1,000 ML IV ONE ×2 (18:00→18:30)
--- NOTE | 2017-05-01 18:00 | NUR ---
MS RN NOTES NOTIFIED DR QUINONES OF LACTIC ACID 7.8 AND OCCULT BLOOD POSITIVE WITH NEW ORDERS TO GIVE 2 LITERS NS BOLUS. NOTED AND CARRIED OUT.
--- NOTE | 2017-05-01 18:45 | NUR ---
MS RN OPENING NOTES RECEIVED PATIENT AWAKE, ALERT ORIENTED X1, VERBALLY RESPONSIVE. NO ACUTE DISTRESS NOTED. ON 2L O2 VIA NC, BREATHING EVEN AND UNLABORED. NO SOB. RCW HD CATH DRESSING C/D/I. RECTAL TUBE IN PLACE. ISOLATION PRECAUTIONS IMPLEMENTED. GT RUNNING NOVASOURCE ORDERED. NO RESIDUALS NOTED. IV ACCESS PATENT AND INTACT. NO REDNESS OR SWELLING NOTED. BED IN LOW/LOCKED POSITION. HOB ELEVATED. CALL LIGHT WITHIN REACH. SIDE RAILS UPX2. BILATERAL SOFT WRIST RESTRAINTS IN PLACE. EXTREMITIES NOTED WITH GOOD CIRCULATION. WILL CONTINUE TO MONITOR ACCORDINGLY.
--- NOTE | 2017-05-01 18:55 | NUR ---
MS RN CLOSING NOTES PATIENT AWAKE, ALERT ORIENTED X1, VERBALLY RESPONSIVE. NO ACUTE DISTRESS NOTED. ON 2L O2 VIA NC, BREATHING EVEN AND UNLABORED. NO SOB. RCW HD CATH DRESSING C/D/I. RECTAL TUBE IN PLACE. ISOLATION PRECAUTIONS IMPLEMENTED. GT RUNNING NOVASOURCE ORDERED.DUE MEDICATIONS GIVEN, NO ASE NOTED. NO RESIDUALS NOTED. IV ACCESS PATENT AND INTACT INFUSING IVF ORDERED. NO REDNESS OR SWELLING NOTED. NEEDS ATTENDED AND ANTICIPATED. FOLLOWED UP PRBC WITH LABORATORY STILL NOT READY,WILL ENDORSE TO NIGHT RN. BED IN LOW/LOCKED POSITION. HOB ELEVATED. CALL LIGHT WITHIN REACH. SIDE RAILS UPX2. BILATERAL SOFT WRIST RESTRAINTS IN PLACE. EXTREMITIES NOTED WITH GOOD CIRCULATION. WILL ENDORSE TO NIGHT RN FOR CONTINUITY OF CARE..
--- NOTE | 2017-05-01 19:00 | NUR ---
RN NOTES RECEIVE PT IN BED A/O X1, NO S/S OF DISTRESS, SAFETY MEASURES IN PLACE, CALL LIGHT WITHIN REACH, WILL CONTINUE TO MONITOR.
[2017-05-01 19:28] LABS: BILIRUBIN,DIRECT 0.2 mg/dL (0.0-0.2); BILIRUBIN,TOTAL 0.5 mg/dL (0.2-1.0)
--- NOTE | 2017-05-01 19:50 | NUR ---
MS RN NOTES PAGED TROY LEIGH SPOKE TO HER RELAYED RECENT LACTIC ACID, NO NEW ORDERS AT THIS TIME NOTED
[2017-05-01] MEDS: MEROPENEM 500 MG in IV NS 0.9% 50 ML IV SCH (21:25)
[2017-05-01] MEDS ORDERED: ACETYLCYSTEINE 10% SOLN 400 MG/4 ML VIAL NEB SCH (23:30)
--- NOTE | 2017-05-01 23:55 | NUR ---
ms/rn notes @1999; Received Patient in bed, awake, alert et orientedx2. With O2@3lpm via nc. with Audible congestion noted. With continuous ivf bolus infusing. checked V/s bp 75/60, Rechecked bp- 89/61, hr-66. 18, T-96.9, o2 sat-96% lacttic acid-10.4 @ 2029, Called and spoke with Nina Encinas np and made aware regarding patient's condition , and ordered not to give the 2nd bag of ivf. @ 220 Patient was seen by Nina encinas np ordered patient to be Transfer to [facility] [place] and Breathing treatment ordered. @ 23 50 Administered 1 unit of prbc as ordered. Vital signs checked prior blood transfusion. No significant changes noted. will continue to monitor.
--- NOTE | 2017-05-02 00:25 | NUR ---
ms/rn notes @ 0015 night monitor, called primary Rn and charge nurse, because from the monitor,he noticed that patient hr dropped from 90 to 40. Went into the room, with 2 Rn , Patient found with No pulse , not breathing, pale, cool to touch. checked and obtain V/S unable to get Vital signs. Pronounced Patient @ 0018 by 2 Rn. @ 0020 called and notified Melissa Mcclain Electronics Tester , Ester Hassan Rn section supervisor, and left a message to Bernard Sheldon, next of kin of the patient. Called [facility] @ 0105 am. @ 0120 postmortem care done. All needs attended.
--- NOTE | 2017-05-02 02:30 | NUR ---
ms/rn notes Called and left a message to komal, next of kin of the patient. Will waiting for call back.
== END 2017-05-02 00:18 | disposition expired | DRG 871 ==
LOC: ER 07:41 → TELE-TD 13:44 → TELE1 04-29 14:29 → MEDSG1 04-30 08:39 → MED 05-01 03:48 → TELE 05-01 22:42
PROVIDERS: ADMIT Nurse Practitioner Acute Care; ATTEND Nurse Practitioner Acute Care
PROC: 5A1D70Z Performance of Urinary Filtration, Intermittent, Less than 6 Hours Per Day (ICD-10-PCS; 2017-04-29)
PROC: 5A1D70Z Performance of Urinary Filtration, Intermittent, Less than 6 Hours Per Day (ICD-10-PCS; 2017-04-30)
PROC: 30233N1 Transfusion of Nonautologous Red Blood Cells into Peripheral Vein, Percutaneous Approach (ICD-10-PCS; principal; 2017-05-01)
PROC: 5A1D70Z Performance of Urinary Filtration, Intermittent, Less than 6 Hours Per Day (ICD-10-PCS; 2017-05-01)
DX: A41.01 Sepsis due to Methicillin susceptible Staphylococcus aureus (principal); J96.01 Acute respiratory failure with hypoxia; I21.A1 Myocardial infarction type 2; G93.41 Metabolic encephalopathy; I13.2 Hypertensive heart and chronic kidney disease with heart failure and with stage 5 chronic kidney disease, or end stage renal disease; E44.0 Moderate protein-calorie malnutrition; A04.72 Enterocolitis due to Clostridium difficile, not specified as recurrent; E87.2 Acidosis; I48.91 Unspecified atrial fibrillation; N18.6 End stage renal disease; N39.0 Urinary tract infection, site not specified; I50.30 Unspecified diastolic (congestive) heart failure; G30.9 Alzheimer's disease, unspecified; F02.80 Dementia in other diseases classified elsewhere, unspecified severity, without behavioral disturbance, psychotic disturbance, mood disturbance, and anxiety; E78.5 Hyperlipidemia, unspecified; R65.20 Severe sepsis without septic shock; Z99.2 Dependence on renal dialysis; B96.20 Unspecified Escherichia coli [E. coli] as the cause of diseases classified elsewhere; D63.8 Anemia in other chronic diseases classified elsewhere; E87.6 Hypokalemia; I25.10 Atherosclerotic heart disease of native coronary artery without angina pectoris; K21.9 Gastro-esophageal reflux disease without esophagitis; Z87.442 Personal history of urinary calculi; Z93.1 Gastrostomy status; Z66 Do not resuscitate; R13.10 Dysphagia, unspecified; E88.09 Other disorders of plasma-protein metabolism, not elsewhere classified; Z87.01 Personal history of pneumonia (recurrent); Z87.440 Personal history of urinary (tract) infections; Z16.12 Extended spectrum beta lactamase (ESBL) resistance; L98.8 Other specified disorders of the skin and subcutaneous tissue; F09 Unspecified mental disorder due to known physiological condition
CPT/HCPCS: 36415; 71045-TC; 80048-TC; 80061-TC; 80076-TC; 80202-TC; 81000-TC; 82247-TC; 82248-TC; 82272-TC; 83540-TC; 83605-TC; 83735-TC; 84100-TC; 84484-TC; 85025-TC; 85730-TC; 86850-TC; 86921-TC; 87040-TC; 87081-TC; 87086-TC; 87186-TC; 90935-TC; 93307-TC; A4216; A4606; A6402; C9113; J1644; J2185; J2405; J2543; J2920; J2997; J3370; J3490; J7030; J7040; J7050; J7060; P9016-BL; P9047; Z7610